=== PATIENT | male | born 1970 | race Caucasian/White ===

== ENCOUNTER 2024-09-07 23:50 | Inpatient (IN) | payer OTHER, SELFPAY ==
[2024-09-07 20:33] VITALS: BMI 68.1
[2024-09-07 20:50] VITALS: BP 126/64
[2024-09-07 20:51] VITALS: BP 126/64
--- NOTE | 2024-09-07 21:04 | ED.GENMED ---
History of Present Illness
General
Chief Complaint: Weakness
Source: patient and spouse
Time Seen by Provider: 09/07/24 20:54
History of Present Illness
History of Present Illness:
This a 53-year-old male with a history of atrial fibrillation, morbid obesity and recent pneumonia who presents with profound weakness he was just released from a rehab facility after being admitted to [facility] for pneumonia. He is oxygen dependent
at this point but states overall has been okay but has just been very weak. He got home and his could not get him out of the chair. He then slid to the ground and could not get up the stairs. EMS was called twice. Patient denies fevers. No
chest pain. He states he has been little short of breath but okay on the oxygen. states that she cannot deal with him at home and she cannot get him up.
Past History
Past History
ED Past Medical History: Arrthythmia (Atrial fibrillation with), HTN, Hypercholesterolemia and Other (Esophageal strictures, morbid obesity, obstructive sleep apnea, bipolar disorder)
ED Past Surgical History: Other (sinus surgery age 21, tumor removed)
Social History
Personal:
Living: with family
Phy Exam
Physical Exam
Physical Exam:
CONSTITUTIONAL Patient alert and oriented to person, place and time. Morbidly obese, vital signs reviewed.
HEAD atraumatic, normocephalic.
EYES eyelids normal to inspection, Extraocular muscles intact, Conjunctiva normal, Sclera normal.
NECK normal range of motion, Trachea midline, no jugular venous distention.
RESPIRATORY CHEST No respiratory distress noted, Chest expansion equal, diminished at bilateral bases, mildly tachypneic
CARDIOVASCULAR regular rate and rhythm, Heart sounds normal.
ABDOMEN abdomen nontender, Bowel sounds normal. No distention.
BACK normal inspection, no obvious deformities
UPPER EXTREMITY range of motion normal, no cyanosis, no edema.
LOWER EXTREMITY range of motion normal, no cyanosis, trace bilateral edema.
NEURO Speech normal, No focal motor deficits, Matthew coma scale 15, Memory normal, Cranial Nerves intact to screening exam.
SKIN skin warm, dry, and normal in color.
Course
Orders/Labs/Results
Orders:
Orders
09/07/24 20:33
Electrocardiogram (*1) Urgent
Reason for Study: Other
Other Reason for Exam: weakness
EKG- Treatment ONCE
09/07/24 20:58
CR Chest Portable - 1 View Urgent
Comment:
Reason For Exam: sob
Reason Study Needs to be Portable: Unable to Transport
09/07/24 21:02
Basic Metabolic Panel Urgent
Complete Blood Count/No Diff Urgent
09/07/24 21:38
NT-proBNP Urgent
PT/INR [Prothrombin Time] Urgent
Abnormal Lab Results
09/07/24
21:02
RBC 4.43 L 10^6/uL
(4.70-6.10)
Hgb 12.6 L g/dL
(13.0-18.0)
MCHC 31.2 L g/dL
(33.0-37.0)
RDW 18.0 H %
(11.5-14.5)
MPV 10.6 H fL
(7.4-10.4)
Chloride 94 L mmol/L
(98-107)
Carbon Dioxide 34 H mmol/L
(22-30)
BUN 25 H mg/dl
(9-20)
Glucose 121 H mg/dl
(70-99)
09/07/24 21:02
09/07/24 21:02
Vital Signs
Initial and Last Documented VS:
Initial Vital Signs
Pulse Resp
63 26
09/07/24 20:30 09/07/24 20:30
Last Documented Vital Signs
Temp Pulse Resp BP Pulse Ox
98.8 F 60 30 126/64 93
09/07/24 20:33 09/07/24 21:30 09/07/24 21:30 09/07/24 20:51 09/07/24 21:00
MDM/Problems Addressed
Differential Diagnosis Includes:
Failure to thrive, electrolyte imbalance, recurrent pneumonia, CHF, metabolic encephalopathy
MDM/Problems Addressed:
Morbid obesity, generalized weakness, failure to thrive, ambulatory dysfunction
*Radiology
Radiology exam reviewed: all reviewed NAD by ED Provider
*Pulse Oximetry
Patient hypoxic: no
*EKG
Interpreted by ED Provider?: Yes
Interpretation: abnormal
Rate: bradycardiac
Rhythm: sinus
Ischemia: non-specific ST changes
*Finisher Hand Interpretation
Rate: bradycardiac
Interpretation: abnormal
Rhythm: sinus
*Critical Care Note
Total Time (30-74mins, 75-104mins- exclusive of procedures): Not Applicable
Data Reviewed
Review of Other/Old Records Reveals: Discharge Summary (from 2015)
Source: patient and spouse
Prescriptions/Medications Considered But Not Given:
Consider antibiotics white count normal, no fever
Patient Management
Discussion with other providers: Hospitalist
Escalation/DeEscalation of care consider admission/obs:
53-year-old male with morbid obesity. Likely needs placement to rehab facility as the patient tried home management but was unable to get up. Unable to get up the stairs. got the care of him. Does not appear to have any other acute findings
ED Attending Note
-
Portions of this chart may have been created with voice recognition software.� Occasional wrong word or��sound alike� substitutions may have occurred due to the inherent limitations of voice recognition software.
Discharge Plan
Departure
Patient Disposition: Admit
Date of Disposition: 09/07/24
Time of Disposition: 22:16
Admit to: Med/Surg
Presentation/result/management discussed w/ accepting MD/DO: Hospitalist
Discharge Problem:
Morbid obesity, Adult failure to thrive, Ambulatory dysfunction
Prescriptions:
No Action
aspirin 81 MG tablet,delayed release (DR/EC)
81 mg PO DAILY
bupropion HCl 150 MG tablet sustained-release 12 hr
150 mg PO BID
atorvastatin 20 MG tablet
20 mg PO QPM
mirtazapine [Remeron SolTab] 30 MG tablet,disintegrating
30 mg PO HS
clonazepam 1 MG tablet
1 mg PO TID
omeprazole 40 MG capsule,delayed release(DR/EC)
40 mg PO BID
diltiazem HCl 30 MG tablet
30 mg PO PRN PRN (Reason: presurgery)
risperidone 0.5 MG tablet
0.5 mg PO HS
dextroamphetamine-amphetamine 10 MG tablet
10 mg PO BID
Patient Comments:
Patient takes medication BID at 0800 and 1300.
guaifenesin [Mucus Relief ER] 600 MG tablet extended release 12hr
600 mg PO Q12 0RF
cefuroxime axetil 500 MG tablet
500 mg PO BID Qty: 10 0RF
azithromycin [Zithromax] 500 MG tablet
500 mg PO DAILY Qty: 5 0RF
Referrals:
Sumi Bautista PA-C [Family Provider] -
Interventions
Interventions:
*Risk Screen - Suicide Last Done: 09/07/24 20:33
*General Assessment Last Done: 09/07/24 20:33
*Neglect/Abuse Screening Last Done: 09/07/24 20:33
*ED COVID-19 Vaccine History Last Done: 09/07/24 20:33
Discharge Date and Time
Print Language: SYRIAC
[2024-09-07 21:20] LABS: Hematocrit 40.4 % (39.0-52.0); Hemoglobin 12.6 g/dL (13.0-18.0); Mean Corp Hgb Conc. 31.2 g/dL (33.0-37.0); Mean Corpuscular Hgb 28.4 pg (27.0-31.0); Mean Corpuscular Volume 91.2 fL (80.0-94.0); Mean Platelet Volume 10.6 fL (7.4-10.4); Platelet Count 237 10^3/uL (130-400); Red Blood Cell Count 4.43 10^6/uL (4.70-6.10); White Blood Cell Count 6.1 10^3/uL (4.8-10.8)
[2024-09-07 21:43] LABS: Blood Urea Nitrogen 25 mg/dl (9-20); Calcium 8.7 mg/dl (8.4-10.2); Carbon Dioxide 34 mmol/L (22-30); Chloride 94 mmol/L (98-107); Estimated Creatinine Clearance > 125 ml/min; Glucose 121 mg/dl (70-99); Sodium 138 mmol/L (135-145); eGFR > 60.00
[2024-09-07 22:11] LABS: INR 1.36
--- NOTE | 2024-09-07 23:15 | HPS.HSE ---
Family Physician
-
Family Physician: Sumi Bautista, PAC
Chief Complaint
-
Weakness
History of Present Illness
53-year-old man with a history of atrial fibrillation, morbid obesity and recent pneumonia comes in with profound weakness. He was just released from a rehab facility after being admitted for pneumonia. He is oxygen dependent now and has been very
weak. At home his could not get him out of the chair. He slid to the ground and could not get up the stairs. Patient denies fevers, chest pain. He has been short of breath but feels better on oxygen. states that she cannot deal with
him at home and she cannot get him up. At the time of my exam he was able to answer my questions. His BMI is 68.
Medical History
Past Medical History
Past Medical History: Reports Other
Additional Past Medical History:
Atrial fibrillation
HTN
Hypercholesterolemia
Esophageal strictures
morbid obesity - BMI 68
obstructive sleep apnea
bipolar disorder
sinus surgery age 21,
tumor removed
Chronic leg swelling
Toe wounds
Past Surgical History: Reports Other
Additional Past Surgical History:
See above
Social History
Tobacco: Non-smoker
Alcohol: None
Drug: None
Personal:
Living: With Family
Family History
Family History: Not pertinent
Allergies / Home Medications
Allergies reflects when Allergies were last updated in [facility].
Home Medications with original date entered in [facility]
Allergy/Medication List:
Allergies
Allergy/AdvReac Type Severity Reaction Status Date / Time
No Known Allergies Allergy Verified 09/07/24 20:46
Home Medications
bupropion HCl 150 mg tablet,12 hr sustained-release 150 mg PO BID 07/27/16
clonazepam 1 mg tablet 1 mg PO TID PRN anxiety 07/27/16
omeprazole 40 mg capsule,delayed release 40 mg PO BID 07/27/16
risperidone 0.5 mg tablet 0.5 mg PO HS 07/27/16
amiodarone 200 mg tablet 200 mg PO DAILY 09/07/24
apixaban 5 mg tablet (Eliquis) 5 mg PO BID 09/07/24
carvedilol 25 mg tablet 25 mg PO BID 09/07/24
furosemide 40 mg tablet 40 mg PO DAILY 09/07/24
pravastatin 40 mg tablet 40 mg PO HS 09/07/24
Review of Systems
-
History Source: Patient
A 12 point ROS was completed and negative except as noted: Yes
Physical Exam
Vital Signs
Vital Signs
Temp Pulse Resp BP Pulse Ox
98.8 F 60 30 126/64 93
09/07/24 20:33 09/07/24 21:30 09/07/24 21:30 09/07/24 20:51 09/07/24 21:00
Physical Exam
General: Well Developed, Well Nourished, Respiratory Distress, Appears in Distress, Appears Chronically Ill and Morbidly Obese
HEENT: Nose Appears Normal and Ears Appear Normal
Respiratory: Clear and Decreased Breath Sounds
Cardiac: S1/S2 and Regular Rhythm
GI: Soft, Non Tender and Non Distended
Musculoskeletal: No Clubbing, No Cyanosis, Edema, Left Lower Extremity and Edema, Right Lower Extremity
Skin: Warm and Dry
Neuro: Awake, Alert, Oriented and AO x 3
Psych: Calm
Laboratory Results
-
09/07/24 21:02
09/07/24 21:02
Laboratory Results
PT 17.0 Sec (11.4-14.6) H 09/07/24 21:38
INR 1.36 09/07/24 21:38
Total Bilirubin Cancelled 09/07/24 21:02
AST Cancelled 09/07/24 21:02
ALT Cancelled 09/07/24 21:02
Alkaline Phosphatase Cancelled 09/07/24 21:02
Data Reviewed
-
Lab Data: Labs Reviewed by me
Impression/Plan
-
IMPRESSION:
53 man with BMI of 54, could not get up from the floor and has profound weakness and a changed EKG
PLAN:
1. Weakness with changes in EKG, h/o afib
Telemetry
CRIS
INR daily
2. Probable obesity hypoventilation syndrome - may need pressure support
Pulmonary consult
3. Elevated glucose on labs - may have diabetes
Check A1C
4. BUN/Creat > 20 - may be dehydrated
IV fluids
recheck in am
5. Increased leg swelling - may have worsening heart failure
Check echo
6. Chronic toe wounds
Nursing care and help with hygiene as needed
7. Failure to get up from floor
PT consult
8. Morbid obesity - needs better outpatient plan
Referral for GLP-1 or bariatric surgery
Full code
VCD for DVTp
[2024-09-08] VITALS (12 sets, daily range): BP systolic 118–180; BP diastolic 62–103; PULSE 62; O2SAT 95; BMI 69.7
[2024-09-08] MEDS: NSS 1000 IV ×2 (02:39→13:42)
[2024-09-08 04:44] LABS: Hematocrit 36.2 % (39.0-52.0); Hemoglobin 11.5 g/dL (13.0-18.0); Mean Corp Hgb Conc. 31.8 g/dL (33.0-37.0); Mean Corpuscular Hgb 28.6 pg (27.0-31.0); Mean Platelet Volume 10.2 fL (7.4-10.4); Platelet Count 198 10^3/uL (130-400); Red Blood Cell Count 4.02 10^6/uL (4.70-6.10); Red Cell Dist. Width 17.9 % (11.5-14.5); White Blood Cell Count 4.9 10^3/uL (4.8-10.8)
[2024-09-08 04:56] LABS: B.E. 11.3 mmol/L; HCO3 38.4 mmol/L (21-28); O2 Saturation % 97.1 % (94-98); PCO2 62 mmHg (35-48); PO2 90 mmHg (83-108)
[2024-09-08 04:58] LABS: Blood Urea Nitrogen 23 mg/dl (9-20); Calcium 8.3 mg/dl (8.4-10.2); Carbon Dioxide 37 mmol/L (22-30); Chloride 94 mmol/L (98-107); Estimated Creatinine Clearance > 125 ml/min; Glucose 123 mg/dl (70-99); HDL Cholesterol 41 mg/dl; LDL Cholesterol, Calculated 95 mg/dl; Potassium 3.2 mmol/L (3.5-5.1); Sodium 141 mmol/L (135-145); Total Cholesterol 164 mg/dl (50-199); Triglyceride 140 mg/dl (10-149); Very Low Density Lipoprotein 28 mg/dl (0-30); eGFR > 60.00
[2024-09-08 05:08] LABS: Troponin I < 0.012 ng/ml
[2024-09-08 07:06] LABS: O2 Therapy on 2L NC
[2024-09-08] MEDS: LASIX 40 MG PO (07:49)
[2024-09-08] MEDS: PACERONE 200 MG PO (07:49)
[2024-09-08] MEDS: COREG 25 MG PO ×2 (07:49→20:07)
[2024-09-08] MEDS: PROTONIX 40 MG PO ×2 (07:49→20:08)
[2024-09-08] MEDS: ELIQUIS 5 MG PO ×2 (07:49→20:08)
[2024-09-08] MEDS: WELLBUTRIN SR (12 hour sustained release) 150 MG PO (07:49)
[2024-09-08 07:59] LABS: Troponin I < 0.012 ng/ml
[2024-09-08] MEDS: KLONOPIN 1 MG PO ×2 (09:12→20:08)
[2024-09-08] MEDS: KCL 40 MEQ PO ×2 (09:12→18:15)
--- NOTE | 2024-09-08 09:54 | CM ---
Patient seen at bedside.
IA: weakness, abnormal ecg
PMH: afib, Obesity
States was recently hospitalized at [facility] then rehab at [facility]. States he then went home for a day and slid to the ground attempting to get off chair.
Patient states does not wish to return to [facility]. Other options discussed
Lives in a 2 story home with , 2 steps to enter, flight of steps to 2nd floor
PLOF: states walker, wheelchair at [facility]
DME: Oxygen, walker
PT eval
Would need to obtain ins auth for SNF
PCP: Sumi Bautista
Pharmacy: [facility]
PLAN: PT eval
[2024-09-08 10:46] LABS: Glycohemoglobin (HgbA1c) 6.7 % (4.0-5.6)
[2024-09-08 10:56] LABS: Troponin I < 0.012 ng/ml
[2024-09-08 11:39] LABS: Glucose - Point of Care 131 mg/dl (70-99)
--- NOTE | 2024-09-08 12:22 | CON.PUL ---
Consultation
Consultation Request
Date/Time Consultation Requested: 09/08/24
Date/Time Consultation Performed: 09/08/24
Performing Provider: Madi
Reason for Consultation: JENNI
Medical History
-
History of Present Illness:
Patient is a 53-year-old male with previous history of atrial fibrillation, super morbid obesity, pneumonia presenting to ER with profound weakness. Had just completed outpatient rehab following admission for pneumonia, oxygen dependent. Chest
x-ray obtained indicating no clear evidence of infection. ABG obtained indicating chronic CO2 retention but well compensated.
He has a history of JENNI, diagnosed some years ago at [facility]. He notes he has been somewhat compliant with PAP, but he does not recall his settings.
Has not been back to see his provider since.
Never told he has other lung disease.
Past Medical History
Past Medical History: Other (see list below)
Social History
Tobacco: Non-smoker
Alcohol: None
Drug: None
Family History
Family History: Reviewed & Not Pertinent
Allergies / Home Medications
Allergies
Allergy/AdvReac Type Severity Reaction Status Date / Time
No Known Allergies Allergy Verified 09/07/24 20:46
Home Medications
�Medication �Instructions �Recorded �Confirmed �Last Taken �Type
bupropion HCl 150 mg tablet,12 hr 150 mg PO BID Mental Health/Anxiety 07/27/16 09/07/24 09/07/24 History
sustained-release
clonazepam 1 mg tablet 1 mg PO TID PRN anxiety 07/27/16 09/07/24 09/07/24 History
omeprazole 40 mg capsule,delayed 40 mg PO BID Gastrointestinal Issue 07/27/16 09/07/24 07/27/16 History
release
risperidone 0.5 mg tablet 0.5 mg PO HS Mental Health/Anxiety 07/27/16 09/07/24 07/27/16 History
amiodarone 200 mg tablet 200 mg PO DAILY Arrhythmia 09/07/24 09/07/24 09/07/24 History
apixaban 5 mg tablet (Eliquis) 5 mg PO BID Blood Clot 09/07/24 09/07/24 09/07/24 History
Prevention/Tx
carvedilol 25 mg tablet 25 mg PO BID Heart 09/07/24 09/07/24 09/07/24 History
Disease/Condition
furosemide 40 mg tablet 40 mg PO DAILY Fluid 09/07/24 09/07/24 Unknown History
Retention/Swelling
pravastatin 40 mg tablet 40 mg PO HS High Cholesterol 09/07/24 09/07/24 Unknown History
Review of Systems
-
History Source: Patient
All other systems: Negative unless noted
Vitals / Labs / Diagnostic Testing
Vital Signs
Temp Pulse Resp BP Pulse Ox
98.0 F 62 20 136/67 94
09/08/24 08:00 09/08/24 08:00 09/08/24 08:00 09/08/24 08:00 09/08/24 08:00
Lab Data
09/08/24 04:05
09/08/24 04:05
Laboratory Results
09/07/24 09/08/24
21:38 04:24
PT 17.0 H
INR 1.36
pH 7.40
pCO2 62 H
pO2 90
HCO3 38.4 H
O2 Delivery Level on 2l nc
Diagnostic Testing:
Physical Exam
-
HEENT: Normocephalic, Anicteric and Moist Mucous Membranes
Cardiovascular: S1/S2 and Regular Rhythm
Respiratory: Clear and Non-Labored Respirations
GI: Soft, Non Distended and Non Tender
Neurology: Awake, Alert, Oriented and No Motor Deficits
Skin: Warm, Dry and Good Color
General: Comfortable and Other (NAD, morbidly obese)
Assessment
-
Patient is a 53-year-old male with previous history of atrial fibrillation, super morbid obesity, pneumonia presenting to [facility] ER with profound weakness. Had just completed outpatient rehab following admission for pneumonia, oxygen dependent. Chest
x-ray obtained indicating no clear evidence of infection. ABG obtained indicating chronic CO2 retention but well compensated.
He has a history of JENNI, diagnosed some years ago at [facility]. He notes he has been somewhat compliant with PAP, but he does not recall his settings. We are consulted for eval.
Generalized weakness
Super morbid obesity
Chronic hypercarbia, suspect JENNI/OHS
Chronic pulmonary insufficiency due to morbid obesity
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
Respiratory failure secondary to aspiration and pleural effusion, adm 2013
Intentional suicide overdose with acids and alkaline material.
Atrial fibrillation
HTN
Hypercholesterolemia
Esophageal strictures
morbid obesity - BMI >60
obstructive sleep apnea
bipolar disorder
Sinus surgery age 21
tumor removed
Chronic leg swelling
Toe wounds
Plan
Hypoxemia noted on arrival, placed on supplemental O2
Has O2 at home, this is due to atelectasis and morbid obesity
Never told he has other lung disease.
Has JENNI history, diagnosed at [facility] many years ago
Has not been back to see his provider since.
Reports that he uses CPAP, but I suspect noncompliance given CO2 retention
Suspect patient has OHS as well
Would need outpatient titration study to evaluate for this and increased PAP settings if warranted
He has appointment with sleep provider at [facility] coming up
We have discussed utilizing his home CPAP device while inpatient, instructed his to bring it in
CXR/CT obtained indicating no acute findings
Other imaging reviewed
No prior echo for review
Weight loss measures recommended
Obesity likely contributing to respiratory symptoms
Consider referral to bariatric center
Will need outpatient pulmonary evaluation in our office for PFTs and 6MWT
Risk factors assessed for underlying sleep disordered breathing also noted, recommend outpatient PSG/sleep evaluation
Reviewed with patient
We will follow
Diagnostic Data
Chest X-Ray: 09/07/24- Technical limitations including lordotic projection and patient rotation to the left. The heart appears enlarged, though may be accentuated by technical factors. No definite significant vascular congestion. Mild localized
interstitial prominence in the medial right lung base, small infiltrate versus atelectasis. No pneumothorax identified.
CT Scan:
Echo:
PFT's:
Reports and relevant images were personally reviewed.
Total time spent on this consultation __55__ minutes which includes review of history, physical exam, medications, laboratory data, personal review of imaging, extensive review of outpatient records, discussion with care team and respiratory therapy.
--- NOTE | 2024-09-08 13:34 | W.PN.HOSP.TC ---
Addendum entered and electronically signed by Mark Diaz, 09/08/24 17:47:
Holding risperidone as well for now
Addendum entered and electronically signed by Mark Diaz, DO 09/08/24 17:44:
QTc prolonged on EKG to 532 ms. Holding bupropion for now, will check mag level and replete for goal >2. Another 40 mEq KCl given
Original Note:
Today's Communication/Plan
-
Pulmonology for OHS
Wean oxygen as possible
Replete potassium
PT/OT
Assessment / Plan
Assessment / Plan
#Weakness with changes in EKG
#H/O AF
-Troponin negative over multiple draws, low suspicion for ACS
-Did not have any symptoms of chest pain here
-Remains on home amiodarone, carvedilol, Eliquis
-Continue to monitor on telemetry
#Suspected OHS/JENNI
-Patient states he has required oxygen use recently at rehab and in hospital
-Due to his morbid obesity/habitus, OHS is very likely
-Pulmonology consulted on admission for consideration of pressure support
-Will need formal PFTs and sleep study as outpatient
-Continue low-level oxygen, monitor clinically
#Morbid obesity
-BMI here 69.7 per today's vital signs
-Affects all aspects of care, contributing to OHS/JENNI and ambulatory issues
-Should be started on GLP-1 agonist or have consideration for bariatric procedure at discharge
# Hypokalemia
-Potassium 3.4 this morning, 40 mEq KCl provided
-Continue to monitor and replete as needed
#Dehydration
-Was found on floor unable to get up, BUN/Cr > 20 on arrival
-Maintenance IVF for now
#Chronic leg swelling/lymphedema
-Low suspicion for CHF
-Could consider echo if oxygen requirements worsen
#Chronic toe wounds
-Nursing care, hygiene assistance
#Ambulatory dysfunction/failure to thrive
-Secondary to severe obesity
-PT/OT consult, anticipate
DVT prophylaxis: Home Eliquis
Diet: Cholesterol-lowering
CODE STATUS: Full code
Anticipated Discharge: 24 - 48 hours
Subjective/Interval History
-
Date of Service: September 08, 2024
Seen and examined at the bedside. No acute events reported overnight. AFVSS this morning on 2 L oxygen
States that he has been using oxygen often recently, both at SNF and during hospital stays
He denies any acute symptoms including chest pain, worsening dyspnea, wheezing, fevers or chills, GI or urinary issues, bleeding or bruising, paresthesias or weakness
Objective Data
-
Labs:
Laboratory Results
09/08/24 09/08/24
04:05 04:24
WBC 4.9
Hgb 11.5 L
Hct 36.2 L
Plt Count 198
HCO3 38.4 H
Sodium 141
Potassium 3.2 L
Chloride 94 L
Carbon Dioxide 37 H
BUN 23 H
Creatinine 1.0
Glucose 123 H
Calcium 8.3 L
Vital Signs:
Vital Signs
Temp Pulse Resp BP Pulse Ox
97.9 F 67 20 149/89 95
09/08/24 12:00 09/08/24 12:00 09/08/24 12:00 09/08/24 12:00 09/08/24 12:00
I&O
09/07/24 09/08/24 09/09/24
06:59 06:59 06:59
Intake Total 350 / 350
Output Total 750 / 750
Balance -400 / -400
Review of Systems
-
History Source: Patient
All other systems: Reviewed and negative
Physical Exam
-
General: Well Developed, No Apparent Distress, Comfortable and Morbidly Obese
HEENT: Normocephalic, Atraumatic, Moist Mucous Membranes, Anicteric and Other (Enlarged neck circumference)
Respiratory: Non Labored Respirations and Decreased Breath Sounds; Negative Wheezes, Rales or Rhonchi
Cardiac: Regular Rhythm and S1/S2; Negative Murmur, Rub or Gallop
GI: Soft, Nontender, Nondistended and Normal Bowel Sounds
Musculoskeletal: No Clubbing, No Cyanosis and No Edema
Skin: Warm, Dry and Normal Turgor; Negative Rash
Neuro: AO x 3 and Nonfocal/Grossly Intact
Psych: Calm
Data Reviewed
-
Labs: Labs Reviewed by me and Discussed with Patient
[2024-09-08 16:11] LABS: Glucose - Point of Care 115 mg/dl (70-99)
[2024-09-08 17:59] LABS: Magnesium 1.7 mg/dl (1.6-2.3)
[2024-09-08] MEDS: MAGNESIUM SULFATE 50 IV (20:07)
[2024-09-08] MEDS: PRAVACHOL 40 MG PO (21:27)
[2024-09-08 21:51] LABS: Glucose - Point of Care 165 mg/dl (70-99)
[2024-09-09] MEDS: NSS 1000 IV (01:31)
[2024-09-09 03:15] VITALS: BP 154/74
[2024-09-09 06:00] VITALS: BMI 70.8
[2024-09-09 07:00] VITALS: BP 137/69
[2024-09-09] MEDS: ELIQUIS 5 MG PO ×2 (08:00→20:40)
[2024-09-09] MEDS: PROTONIX 40 MG PO ×2 (08:00→20:40)
[2024-09-09] MEDS: LASIX 40 MG PO (08:00)
[2024-09-09] MEDS: COREG 25 MG PO ×2 (08:00→20:40)
[2024-09-09] MEDS: PACERONE 200 MG PO (08:00)
[2024-09-09 08:32] LABS: Glucose - Point of Care 131 mg/dl (70-99)
[2024-09-09 09:10] LABS: % Basophils 0.7 % (0-2); % Eosinophils 1.5 % (0-6); % Immature Granulocytes 0.5 % (0-0.5); % Lymphocytes 17.2 % (20.5-51.1); % Monocytes 11.6 % (1.7-9.3); % Neutrophils 68.5 % (42.2-75.2); Absolute Eosinophils 0.1 10^3/uL (0-0.7); Absolute Lymphocytes 0.7 10^3/uL (1.2-3.4); Absolute Monocytes 0.5 10^3/uL (0.1-0.6); Absolute Neutrophils 2.8 10^3/uL (1.4-6.5); Hematocrit 36.7 % (39.0-52.0); Hemoglobin 11.3 g/dL (13.0-18.0); Mean Corp Hgb Conc. 30.8 g/dL (33.0-37.0); Mean Corpuscular Hgb 28.8 pg (27.0-31.0); Mean Corpuscular Volume 93.6 fL (80.0-94.0); Mean Platelet Volume 10.6 fL (7.4-10.4); Nucleated Red Blood Cells % 0 % (-); Platelet Count 177 10^3/uL (130-400); Red Blood Cell Count 3.92 10^6/uL (4.70-6.10); Red Cell Dist. Width 18.1 % (11.5-14.5); White Blood Cell Count 4.1 10^3/uL (4.8-10.8)
[2024-09-09 09:35] LABS: Blood Urea Nitrogen 15 mg/dl (9-20); Calcium 7.9 mg/dl (8.4-10.2); Chloride 96 mmol/L (98-107); Estimated Creatinine Clearance > 125 ml/min; Glucose 128 mg/dl (70-99); Magnesium 2.2 mg/dl (1.6-2.3); Potassium 3.9 mmol/L (3.5-5.1); Sodium 141 mmol/L (135-145); eGFR > 60.00
[2024-09-09 09:45] LABS: Carbon Dioxide 37 mmol/L (22-30)
--- NOTE | 2024-09-09 10:00 | W.PN.PUL.V3 ---
Today's Communication / Plan
-
CPAP/BiPAP at night- bring in machine.
Outpatient sleep evaluation
Await placement to SNF
Assessment
-
Patient is a 53-year-old male with previous history of atrial fibrillation, super morbid obesity, pneumonia presenting to ER with profound weakness. Had just completed outpatient rehab following admission for pneumonia, oxygen dependent. Chest
x-ray obtained indicating no clear evidence of infection. ABG obtained indicating chronic CO2 retention but well compensated.
He has a history of JENNI, diagnosed some years ago at [facility]. He notes he has been somewhat compliant with PAP, but he does not recall his settings. We are consulted for eval.
Generalized weakness
Super morbid obesity
Chronic hypercarbia, suspect JENNI/OHS
Chronic pulmonary insufficiency due to morbid obesity
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
Respiratory failure secondary to aspiration and pleural effusion, adm 2013
Intentional suicide overdose with acids and alkaline material.
Atrial fibrillation
HTN
Hypercholesterolemia
Esophageal strictures.
Super morbid obesity - BMI > 70
obstructive sleep apnea
bipolar disorder
Sinus surgery age 21
tumor removed
Chronic leg swelling
Toe wounds
Plan
Respiratory status relatively stable.
Supplemental oxygen as needed.
Aspiration precautions.
Incentive spirometry.
Nebulizers if needed-currently not bronchospastic.
BiPAP/ CPAP at night-states is bringing his machine in
Has not followed up with his framer at [facility] for many years-states he's had BiPAP for about 6 years-likely due for a new machine.
Would need outpatient titration study to evaluate for this and increased PAP settings if warranted
He has appointment with sleep provider at [facility] coming up
Weight loss measures recommended
Obesity likely contributing to respiratory symptoms
Consider referral to bariatric center..
Echocardiogram pending
Overweight placement to subacute nursing facility
Will need outpatient pulmonary evaluation in our office for PFTs and 6MWT
Risk factors assessed for underlying sleep disordered breathing also noted, recommend outpatient PSG/sleep evaluation-gave option to follow up locally-lives in [place]
Diagnostic Data
Chest X-Ray: 09/07/24- Technical limitations including lordotic projection and patient rotation to the left. The heart appears enlarged, though may be accentuated by technical factors. No definite significant vascular congestion. Mild localized
interstitial prominence in the medial right lung base, small infiltrate versus atelectasis. No pneumothorax identified.
Reports and relevant images were personally reviewed.
Subjective Data
-
Date of Service:
Date of Service: September 09, 2024
Chief Complaint: Pulmonary Follow Up and Dyspnea Follow Up
Subjective:
Tolerating BiPAP, no complaints of worsening shortness of breath, chest pain or abdominal pain
Review of Systems
General: Other ( per HPI)
Objective Data
Data Reviewed
Vital Signs / I&O:
Vital Signs
Temp Pulse Resp BP Pulse Ox
98.1 F 63 22 137/69 93
09/09/24 07:00 09/09/24 07:00 09/09/24 07:00 09/09/24 07:00 09/09/24 07:00
Intake and Output
09/08/24 09/09/24 09/10/24
06:59 06:59 06:59
Intake Total 350 / 350 2420 / 2420
Output Total 750 / 750 1400 / 1400
Balance -400 / -400 1020 / 1020
SaO2: 93
Nasal Cannula flow liters per minute: 2
Physical Exam
General: Respiratory Distress (n) and Comfortable
HEENT: Normocephalic, Anicteric and Moist Mucous Membranes
Cardiovascular: Regular Rhythm
Respiratory: Wheeze (n), Crackles (n), Non-Labored Respirations, Accessory Resp Muscle Use (n) and Stridor (n)
GI: Soft and Distended
Neurology: Awake and Alert
Skin: Warm, Good Color, Cyanosis (n) and Jaundice (n)
Labs/Micro/Reports
Lab Data
09/09/24 08:31
09/09/24 08:31
[2024-09-09] MEDS: NSS IV (10:37)
[2024-09-09 11:00] VITALS: BP 147/75
--- NOTE | 2024-09-09 11:58 | CM ---
CM reviewed chart, patient seen bedside. CM discussed PT recommendations of SNF, patient confirms he was previously at [facility], returned home briefly, was going to start services with [facility], however was admitted to Hospital. CM spoke with
patients , Andreia, Andreia reports she will be writing a letter to the state with her concerns of the care from [facility]. Andreia requesting [facility] for patient. CM discussed patient will require an Acute rehab diagnosis in order to be
accepted to [facility], therapy recommendations remain SNF. agreeable to referrals to be sent to local facilities, 4 star and above. Patient will require insurance auth once facility found. CM will continue to follow for all discharge planning needs.
Plan; SNF once facility accepts, will need insurance auth.
--- NOTE | 2024-09-09 12:10 | W.PN.HOSP.TC ---
Today's Communication/Plan
-
await placement to SNF
Check ECHO
Qtc monitoring-Repeat EKG
Assessment / Plan
Assessment / Plan
#Weakness with changes in EKG
#H/O AF
-Troponin negative over multiple draws, low suspicion for ACS
-Did not have any symptoms of chest pain here
-Remains on home amiodarone, carvedilol, Eliquis
-Continue to monitor on telemetry. Check ECHO.
#Suspected OHS/JENNI
-Patient states he has required oxygen use recently at rehab and in hospital
-Due to his morbid obesity/habitus, OHS is very likely
-Pulmonology consulted on admission for consideration of pressure support
-Will need formal PFTs and sleep study as outpatient
-Continue low-level oxygen, monitor clinically
#Prolonged Qtc
-bupropioon and rispderidal held.
-repeat EKG
#DM2
-A1C of 6.7
-ADA. Iss and accuchecks. Lifestyle modification vs. metformin.
#Morbid obesity
-BMI here 70.8 per today's vital signs
-Affects all aspects of care, contributing to OHS/JENNI and ambulatory issues
-Should be started on GLP-1 agonist or have consideration for bariatric procedure at discharge
# Hypokalemia
-Continue to monitor and replete as needed
#Dehydration
-Was found on floor unable to get up, BUN/Cr > 20 on arrival
-Maintenance IVF for now-stop IVF
#Chronic leg swelling/lymphedema
-Low suspicion for CHF
-Could consider echo if oxygen requirements worsen
#Chronic toe wounds
-Nursing care, hygiene assistance
#Ambulatory dysfunction/failure to thrive
-Secondary to severe obesity
-PT/OT-SNF. Cm aware.
DVT prophylaxis: Home Eliquis
Diet: Cholesterol-lowering
CODE STATUS: Full code
Anticipated Discharge: Today
Subjective/Interval History
-
Date of Service: September 09, 2024
resting in bed
on oxygen
Objective Data
-
Labs:
Laboratory Results
09/09/24
08:31
WBC 4.1 L
Hgb 11.3 L
Hct 36.7 L
Plt Count 177
Sodium 141
Potassium 3.9
Chloride 96 L
Carbon Dioxide 37 H
BUN 15
Creatinine 0.8
Glucose 128 H
Calcium 7.9 L
Vital Signs:
Vital Signs
Temp Pulse Resp BP Pulse Ox
98.1 F 63 22 137/69 93
09/09/24 07:00 09/09/24 07:00 09/09/24 07:00 09/09/24 07:00 09/09/24 10:00
I&O
09/08/24 09/09/24 09/10/24
06:59 06:59 06:59
Intake Total 350 / 350 2420 / 2420
Output Total 750 / 750 1400 / 1400
Balance -400 / -400 1020 / 1020
Physical Exam
-
General: Well Developed, No Apparent Distress, Comfortable and Morbidly Obese
HEENT: Normocephalic, Atraumatic, Moist Mucous Membranes, Anicteric and Other (Enlarged neck circumference)
Respiratory: Non Labored Respirations and Decreased Breath Sounds (likely due to body habitus-); Negative Wheezes, Rales or Rhonchi
Cardiac: Regular Rhythm and S1/S2; Negative Murmur, Rub or Gallop
GI: Soft, Nontender, Nondistended and Normal Bowel Sounds
Musculoskeletal: No Clubbing and No Cyanosis
Skin: Warm, Dry and Normal Turgor; Negative Rash
Neuro: Awake, Alert, Oriented, AO x 3 and Nonfocal/Grossly Intact
Psych: Calm
Data Reviewed
-
Total Time Spent with Patient (in minutes): 52
[2024-09-09 12:17] LABS: Glucose - Point of Care 116 mg/dl (70-99)
[2024-09-09] MEDS: KLONOPIN 1 MG PO ×2 (14:02→21:42)
[2024-09-09 15:00] VITALS: BP 141/78
[2024-09-09 17:37] LABS: Glucose - Point of Care 108 mg/dl (70-99)
[2024-09-09 19:00] VITALS: BP 128/71
[2024-09-09 21:33] LABS: Glucose - Point of Care 119 mg/dl (70-99)
[2024-09-09] MEDS: PRAVACHOL 40 MG PO (21:42)
[2024-09-09 23:00] VITALS: BP 126/64
[2024-09-10 03:00] VITALS: BP 123/60
[2024-09-10 06:00] VITALS: BMI 70.5
[2024-09-10 07:00] VITALS: BP 155/79
[2024-09-10 08:40] LABS: Glucose - Point of Care 115 mg/dl (70-99)
--- NOTE | 2024-09-10 09:19 | PN.CDI ---
CDI
- -
CDI:
Physician Documentation Request
Admit Date: 09/07/24 23:50
Dear Doctor Ranjan,
Please review the following and provide your response in the progress notes.
Clinical Indicators:
Pt admitted with weakness, suspected OHS/JENNI.
Pt past medical history includes Atrial fibrillation; pt on Eliquis
If possible, please provide further specificity regarding atrial fibrillation, such as:
Paroxysmal atrial fibrillation - terminates spontaneously or with intervention within 7 days of onset
Persistent atrial fibrillation - episodes of continuous AF that last more than 7 days and do not self-terminate
Permanent atrial fibrillation - when a decision has been made to accept the presence of AF and there is no further attempt to restore or maintain sinus rhythm
Other - please specify
Unable to further specify
Use of terms such as suspected, likely, concern for, or probable (associated with a specific diagnosis that is being evaluated, monitored, or treated as if it exists) are acceptable and can be coded in the inpatient setting, when documented at the
time of discharge.
Thank you,
Lizett Sharma RN, BSN
CDI Specialist
Available via [place] [employer]
Please use your independent medical judgment in providing your response.
--- NOTE | 2024-09-10 09:23 | PN.CDI ---
CDI
- -
CDI:
Physician Documentation Request
Admit Date: 09/07/24 23:50
Dear Doctor Ranjan,
Please review the following and provide your response in the progress notes.
Clinical Indicators:
Pt admitted with Weakness and suspected OHS/JENNI.
09/08 family assessment worker noted stage 2 right posterior ear pressure injury.
Physician documentation of the type and location of wounds is required for compliant documentation. Based on the above clinical findings and your assessment, please provide the following in your progress note:
1. Location of the ulcer/wound, including laterality.
2. Type (etiology) of ulcer/wound:
Right ear pressure injury POA
Right ear pressure injury not POA
Right ear non-pressure injury
Other
Use of terms such as suspected, likely, concern for, or probable (associated with a specific diagnosis that is being evaluated, monitored, or treated as if it exists) are acceptable and can be coded in the inpatient setting, when documented at the
time of discharge.
Thank you,
Lizett Sharma RN, BSN
CDI Specialist
Available via [place] [employer]
Please use your independent medical judgment in providing your response.
*Source: National Pressure Ulcer Advisory Panel (NPUAP)
[2024-09-10] MEDS: PROTONIX 40 MG PO ×2 (09:26→20:15)
[2024-09-10] MEDS: COREG 25 MG PO ×2 (09:26→20:15)
[2024-09-10] MEDS: ELIQUIS 5 MG PO ×2 (09:26→20:15)
[2024-09-10] MEDS: PACERONE 200 MG PO (09:26)
[2024-09-10] MEDS: LASIX 40 MG PO (09:26)
--- NOTE | 2024-09-10 10:15 | W.PN.PUL.V3 ---
Today's Communication / Plan
-
Wean oxygen.
CPAP/BiPAP at night.
Outpatient pulmonary/sleep disorders follow-up
Assessment
-
Patient is a 53-year-old male with previous history of atrial fibrillation, super morbid obesity, pneumonia presenting to ER with profound weakness. Had just completed outpatient rehab following admission for pneumonia, oxygen dependent. Chest
x-ray obtained indicating no clear evidence of infection. ABG obtained indicating chronic CO2 retention but well compensated.
He has a history of JENNI, diagnosed some years ago at [facility]. He notes he has been somewhat compliant with PAP, but he does not recall his settings. We are consulted for eval.
Generalized weakness
Super morbid obesity
Chronic hypercarbia, suspect JENNI/OHS
Chronic pulmonary insufficiency due to morbid obesity
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
Respiratory failure secondary to aspiration and pleural effusion, adm 2013
Intentional suicide overdose with acids and alkaline material.
Atrial fibrillation
HTN
Hypercholesterolemia
Esophageal strictures.
Super morbid obesity - BMI > 70
obstructive sleep apnea
bipolar disorder
Sinus surgery age 21
tumor removed
Chronic leg swelling
Toe wounds
Plan
Respiratory status relatively stable.
Supplemental oxygen as needed-on 2 L 95% saturation
Aspiration precautions.
Incentive spirometry.
Nebulizers if needed-currently not bronchospastic.
CPAP/BiPAP at night- brought in machine-needs supplemental oxygen at night
Has not followed up with his parent aide at [facility] for many years-states he's had CPAP/BiPAP for about 6 years-likely due for a new machine.
Would need outpatient titration study to evaluate for this and increased PAP settings if warranted
He has appointment with sleep provider at [facility] coming up
Weight loss measures recommended
Obesity likely contributing to respiratory symptoms
Consider referral to bariatric center..
Echocardiogram 09/09/24-EF 55-60%, no valvular disease
Overweight placement to subacute nursing facility
Will need outpatient pulmonary evaluation in our office for PFTs and 6MWT
Risk factors assessed for underlying sleep disordered breathing also noted, recommend outpatient PSG/sleep evaluation-gave option to follow up locally-lives in [place]
Diagnostic Data
Chest X-Ray: 09/07/24- Technical limitations including lordotic projection and patient rotation to the left. The heart appears enlarged, though may be accentuated by technical factors. No definite significant vascular congestion. Mild localized
interstitial prominence in the medial right lung base, small infiltrate versus atelectasis. No pneumothorax identified.
Reports and relevant images were personally reviewed.
Subjective Data
-
Date of Service:
Date of Service: September 10, 2024
Chief Complaint: Pulmonary Follow Up and Dyspnea Follow Up
Subjective:
Using BiPAP and oxygen, no complaints of worsening shortness of breath or chest pain
Review of Systems
General: Other (. HPI)
Objective Data
Data Reviewed
Vital Signs / I&O:
Vital Signs
Temp Pulse Resp BP Pulse Ox
98.3 F 63 20 155/79 94
09/10/24 07:00 09/10/24 07:00 09/10/24 07:00 09/10/24 07:00 09/10/24 07:00
Intake and Output
09/09/24 09/10/24 09/11/24
06:59 06:59 06:59
Intake Total 2420 / 2420 480 / 480 480 / 480
Output Total 1400 / 1400 350 / 350 250 / 250
Balance 1020 / 1020 130 / 130 230 / 230
SaO2: 94
Nasal Cannula flow liters per minute: 2
Physical Exam
General: Respiratory Distress (n) and Comfortable
HEENT: Normocephalic, Anicteric and Moist Mucous Membranes
Cardiovascular: Regular Rhythm
Respiratory: Wheeze (n), Crackles (n), Non-Labored Respirations, Accessory Resp Muscle Use (n) and Stridor (n)
GI: Soft and Distended
Neurology: Awake and Alert
Skin: Warm, Good Color, Cyanosis (n) and Jaundice (n)
Labs/Micro/Reports
Lab Data
09/09/24 08:31
09/09/24 08:31
[2024-09-10 11:00] VITALS: BP 152/82
[2024-09-10 11:45] LABS: Glucose - Point of Care 138 mg/dl (70-99)
--- NOTE | 2024-09-10 12:12 | W.PN.HOSP.TC ---
Today's Communication/Plan
-
Medically stable
Awaiting for placement
Disposition difficult
Started on metformin
Diabetic education
Assessment / Plan
Assessment / Plan
#Weakness with changes in EKG
#H/O AF
-Troponin negative over multiple draws, low suspicion for ACS
-Did not have any symptoms of chest pain here
-Remains on home amiodarone, carvedilol, Eliquis
-Continue to monitor on telemetry. Echo with overall preserved left ventricular ejection fraction 55 to 60% with no significant valve disease.
#Suspected OHS/JENNI
-Patient states he has required oxygen use recently at rehab and in hospital
-Due to his morbid obesity/habitus, OHS is very likely
-Pulmonology consulted on admission for consideration of pressure support
-Will need formal PFTs and sleep study as outpatient
-Continue low-level oxygen, monitor clinically
#Prolonged Qtc
-bupropioon and rispderidal held.
-QTc improving.
#DM2
-A1C of 6.7
-ADA. Iss and accuchecks. Lifestyle modification and metformin.
-Diabetes education
#Morbid obesity
-BMI here 70.5 per today's vital signs
-Affects all aspects of care, contributing to OHS/JENNI and ambulatory issues
-Should be started on GLP-1 agonist or have consideration for bariatric procedure at discharge
# Hypokalemia
-Continue to monitor and replete as needed
#paroxysmal atrial fibrillation
-cont amiodarone and eliquis
-follows at [facility] cardiology-Dr. Keith.
#Dehydration
-Was found on floor unable to get up, BUN/Cr > 20 on arrival
-Maintenance IVF for now-stop IVF
#Chronic leg swelling/lymphedema
-Cont lasix.
-Compression therapy added
#Chronic toe wounds
-Nursing care, hygiene assistance
#Ambulatory dysfunction/failure to thrive
-Secondary to severe obesity
-PT/OT-SNF. Cm aware.
Stage II right posterior ear pressure injury-poa
DVT prophylaxis: Home Eliquis
Diet: Cholesterol-lowering
CODE STATUS: Full code
Anticipated Discharge: Today
Subjective/Interval History
-
Date of Service: September 10, 2024
states used cpap overnight
Objective Data
-
Vital Signs:
Vital Signs
Temp Pulse Resp BP Pulse Ox
98.4 F 59 22 152/82 93
09/10/24 11:00 09/10/24 11:00 09/10/24 11:00 09/10/24 11:00 09/10/24 11:00
I&O
09/09/24 09/10/24 09/11/24
06:59 06:59 06:59
Intake Total 2420 / 2420 480 / 480 480 / 480
Output Total 1400 / 1400 350 / 350 250 / 250
Balance 1020 / 1020 130 / 130 230 / 230
Data Reviewed
-
Total Time Spent with Patient (in minutes): 55
--- NOTE | 2024-09-10 12:13 | CM ---
Addendum entered by Abril Car 09/10/24 14:25:
CM discussed with Fidel at [facility], [place] location can accept if approved by insurance. CM spoke with patients , Andreia, agreeable to [place] location. Will need updated PT/OT evaluations to submit for auth.
Plan; will try for insurance auth for [facility]
Dr. Pascual Bloom: [phone]
Original Note:
CM received voicemail from patients , spoke to Willam Beckford at [facility], requesting referral sent. CM placed referral to [facility], TT to [facility] liaison with update. CM will continue to follow for all discharge planning needs.
Plan; family requesting [facility] evaluation, no accepting SNF at this time.
[2024-09-10 15:00] VITALS: BP 130/72
[2024-09-10 16:28] LABS: Glucose - Point of Care 114 mg/dl (70-99)
[2024-09-10] MEDS: GLUCOPHAGE 500 MG PO (16:54)
[2024-09-10 19:50] VITALS: BP 127/68
[2024-09-10] MEDS: PRAVACHOL 40 MG PO (20:15)
[2024-09-10] MEDS: KLONOPIN 1 MG PO (20:15)
[2024-09-10 22:33] LABS: Glucose - Point of Care 110 mg/dl (70-99)
[2024-09-10 23:39] VITALS: BP 143/70
[2024-09-11 03:20] VITALS: BP 149/78
[2024-09-11 06:00] VITALS: BMI 70.3
[2024-09-11 08:07] LABS: Glucose - Point of Care 122 mg/dl (70-99)
[2024-09-11 08:45] VITALS: BP 154/78
[2024-09-11] MEDS: GLUCOPHAGE 500 MG PO ×2 (08:57→18:28)
[2024-09-11] MEDS: KLONOPIN 1 MG PO ×2 (08:57→20:47)
[2024-09-11] MEDS: COREG 25 MG PO ×2 (09:00→20:06)
[2024-09-11] MEDS: PACERONE 200 MG PO (09:00)
[2024-09-11] MEDS: LASIX 40 MG PO (09:00)
[2024-09-11] MEDS: ELIQUIS 5 MG PO ×2 (09:00→20:06)
[2024-09-11] MEDS: PROTONIX 40 MG PO ×2 (09:00→20:08)
--- NOTE | 2024-09-11 10:32 | W.PN.PUL.V3 ---
Today's Communication / Plan
-
.
Continue BiPAP at night.
Overweight rehabilitation placement
Assessment
-
Patient is a 53-year-old male with previous history of atrial fibrillation, super morbid obesity, pneumonia presenting to ER with profound weakness. Had just completed outpatient rehab following admission for pneumonia, oxygen dependent. Chest
x-ray obtained indicating no clear evidence of infection. ABG obtained indicating chronic CO2 retention but well compensated.
He has a history of JENNI, diagnosed some years ago at [facility]. He notes he has been somewhat compliant with PAP, but he does not recall his settings. We are consulted for eval.
Generalized weakness
Super morbid obesity
Chronic hypercarbia, suspect JENNI/OHS
Chronic pulmonary insufficiency due to morbid obesity
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
Respiratory failure secondary to aspiration and pleural effusion, adm 2013
Intentional suicide overdose with acids and alkaline material.
Atrial fibrillation
HTN
Hypercholesterolemia
Esophageal strictures.
Super morbid obesity - BMI > 70
obstructive sleep apnea
bipolar disorder
Sinus surgery age 21
tumor removed
Chronic leg swelling
Toe wounds
Plan
Respiratory status Continues to be relatively stable
Supplemental oxygen as needed-on 2 L 95% saturation
Aspiration precautions.
Incentive spirometry.
Nebulizers if needed-currently not bronchospastic.
CPAP/BiPAP at night- brought in machine-needs supplemental oxygen at night-continue to use
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
Would need outpatient titration study to evaluate for this and increased PAP settings if warranted
He has appointment with sleep provider at [facility] coming up
Weight loss measures recommended
Obesity likely contributing to respiratory symptoms
Consider referral to bariatric center..
Echocardiogram 09/09/24-EF 55-60%, no valvular disease
Overweight placement to subacute nursing facility
Will need outpatient pulmonary evaluation in our office for PFTs and 6MWT
Risk factors assessed for underlying sleep disordered breathing also noted, recommend outpatient PSG/sleep evaluation-gave option to follow up locally-lives in [place]
Diagnostic Data
Chest X-Ray: 09/07/24- Technical limitations including lordotic projection and patient rotation to the left. The heart appears enlarged, though may be accentuated by technical factors. No definite significant vascular congestion. Mild localized
interstitial prominence in the medial right lung base, small infiltrate versus atelectasis. No pneumothorax identified.
Reports and relevant images were personally reviewed.
Subjective Data
-
Date of Service:
Date of Service: September 11, 2024
Chief Complaint: Pulmonary Follow Up and Dyspnea Follow Up
Objective Data
Data Reviewed
Vital Signs / I&O:
Vital Signs
Temp Pulse Resp BP Pulse Ox
97.8 F 56 18 154/78 93
09/11/24 08:45 09/11/24 08:45 09/11/24 08:45 09/11/24 08:45 09/11/24 08:45
Intake and Output
09/10/24 09/11/24 09/12/24
06:59 06:59 06:59
Intake Total 480 / 480 1200 / 1200
Output Total 350 / 350 1425 / 1425 225 / 225
Balance 130 / 130 -225 / -225 -225 / -225
SaO2: 93
Nasal Cannula flow liters per minute: 3
Physical Exam
General: Respiratory Distress (n) and Comfortable
HEENT: Normocephalic, Anicteric and Moist Mucous Membranes
Cardiovascular: Regular Rhythm
Respiratory: Wheeze (n), Crackles (n), Non-Labored Respirations, Accessory Resp Muscle Use (n) and Stridor (n)
GI: Soft and Distended
Neurology: Awake and Alert
Skin: Warm, Good Color, Cyanosis (n) and Jaundice (n)
Labs/Micro/Reports
Lab Data
09/09/24 08:31
09/09/24 08:31
[2024-09-11 11:04] VITALS: BP 147/76
--- NOTE | 2024-09-11 11:29 | W.PN.HOSP.TC ---
Today's Communication/Plan
-
cont metformin
await placement to rehab
ekg for Qtc
cont eliquis
Assessment / Plan
Assessment / Plan
#Weakness with changes in EKG
#H/O AF
-Troponin negative over multiple draws, low suspicion for ACS
-Did not have any symptoms of chest pain here
-Remains on home amiodarone, carvedilol, Eliquis
-Continue to monitor on telemetry. Echo with overall preserved left ventricular ejection fraction 55 to 60% with no significant valve disease.
#Suspected OHS/JENNI
-Patient states he has required oxygen use recently at rehab and in hospital
-Due to his morbid obesity/habitus, OHS is very likely
-Pulmonology consulted on admission for consideration of pressure support
-Will need formal PFTs and sleep study as outpatient
-Continue low-level oxygen, monitor clinically
#Prolonged Qtc
-bupropioon and rispderidal DCed
-QTc improving.
#DM2
-A1C of 6.7
-ADA. Iss and accuchecks. Lifestyle modification and metformin 500mg BID.
-Diabetes education
#Morbid obesity
-BMI here 70.2 per today's vital signs
-Affects all aspects of care, contributing to OHS/JENNI and ambulatory issues
-Should be started on GLP-1 agonist or have consideration for bariatric procedure at discharge
# Hypokalemia
-Continue to monitor and replete as needed
#paroxysmal atrial fibrillation
-cont amiodarone and eliquis
-follows at [facility] cardiology-Dr. Keith.
#Dehydration
-Was found on floor unable to get up, BUN/Cr > 20 on arrival
- stop IVF
#Chronic leg swelling/lymphedema
-Cont lasix.
-Compression therapy added
#Chronic toe wounds
-Nursing care, hygiene assistance
#Ambulatory dysfunction/failure to thrive
-Secondary to severe obesity
-PT/OT-SNF. Cm aware.
Stage II right posterior ear pressure injury-poa
#Constipation
-bowel regimen
DVT prophylaxis: Eliquis
CODE STATUS: Full code
PT/OT-acute rehab. await placement
Anticipated Discharge: Within 24 hours
Subjective/Interval History
-
Date of Service: September 11, 2024
tolerating diet
used CPAP at night
tolerating metformin so far
Objective Data
-
Vital Signs:
Vital Signs
Temp Pulse Resp BP Pulse Ox
97.9 F 56 20 147/76 94
09/11/24 11:04 09/11/24 11:04 09/11/24 11:04 09/11/24 11:04 09/11/24 11:04
I&O
09/10/24 09/11/24 09/12/24
06:59 06:59 06:59
Intake Total 480 / 480 1200 / 1200
Output Total 350 / 350 1425 / 1425 225 / 225
Balance 130 / 130 -225 / -225 -225 / -225
Physical Exam
-
General: Well Developed, No Apparent Distress, Comfortable and Morbidly Obese
HEENT: Normocephalic, Atraumatic, Moist Mucous Membranes, Anicteric and Other (Enlarged neck circumference)
Respiratory: Non Labored Respirations and Decreased Breath Sounds (likely due to body habitus-); Negative Wheezes, Rales or Rhonchi
Cardiac: Regular Rhythm and S1/S2; Negative Murmur, Rub or Gallop
GI: Soft, Nontender, Nondistended and Normal Bowel Sounds
Musculoskeletal: No Clubbing, No Cyanosis, Edema, Right Lower Extrem and Edema, Left Lower Extrem
Skin: Warm; Negative Rash
Neuro: Awake, Alert, Oriented, AO x 3 and Nonfocal/Grossly Intact
Psych: Calm
[2024-09-11 11:32] LABS: Glucose - Point of Care 126 mg/dl (70-99)
[2024-09-11] MEDS: DULCOLAX 10 MG PO (11:48)
[2024-09-11] MEDS: MILK OF MAGNESIA 30 ML PO (11:49)
--- NOTE | 2024-09-11 12:29 | CM ---
Addendum entered by Abril Car 09/11/24 16:02:
CM spoke with Dr. Toribio from , informed auth for acute rehab has been denied, patient does not meet criteria for acute rehab, option for peer to peer appeal: call [phone], fax [phone], reference number [id number]. Call to patients
, Andreia, to provide update. Andreia requesting peer to peer to be completed. TT to Dr. Jeffrey with request.
Original Note:
CM initiated auth through patients insurance for acute rehab to [facility], pending reference [id number], will be sent to [employer] for review. CM will continue to follow for all discharge planning needs.
Plan; awaiting determination from [employer] for review for Acute Rehab approval.
[2024-09-11 16:34] LABS: Glucose - Point of Care 101 mg/dl (70-99)
[2024-09-11 17:58] VITALS: BP 149/80
[2024-09-11] MEDS: WELLBUTRIN SR (12 hour sustained release) 150 MG PO (20:06)
[2024-09-11] MEDS: PRAVACHOL 40 MG PO (20:47)
[2024-09-11 21:27] LABS: Glucose - Point of Care 109 mg/dl (70-99)
[2024-09-11 23:40] VITALS: BP 149/74
[2024-09-12 06:00] VITALS: BMI 70.2
[2024-09-12 07:32] LABS: Glucose - Point of Care 113 mg/dl (70-99)
[2024-09-12] MEDS: ELIQUIS 5 MG PO ×2 (08:23→19:54)
[2024-09-12] MEDS: WELLBUTRIN SR (12 hour sustained release) 150 MG PO ×2 (08:23→20:03)
[2024-09-12] MEDS: PROTONIX 40 MG PO ×2 (08:23→20:04)
[2024-09-12] MEDS: GLUCOPHAGE 500 MG PO ×2 (08:23→16:48)
[2024-09-12] MEDS: PACERONE 200 MG PO (08:24)
[2024-09-12] MEDS: COREG 25 MG PO ×2 (08:25→19:54)
[2024-09-12] MEDS: LASIX 40 MG PO (08:25)
[2024-09-12 09:00] VITALS: BP 139/74
--- NOTE | 2024-09-12 09:22 | W.PN.PUL.V3 ---
Today's Communication / Plan
-
. Continue supplemental option.
Continue CPAP/BiPAP as tolerated.
Outpatient pulmonary/sleep disorders follow-up.
Pulmonary-we will sign off-. Please call with questions
Assessment
-
Patient is a 53-year-old male with previous history of atrial fibrillation, super morbid obesity, pneumonia presenting to ER with profound weakness. Had just completed outpatient rehab following admission for pneumonia, oxygen dependent. Chest
x-ray obtained indicating no clear evidence of infection. ABG obtained indicating chronic CO2 retention but well compensated.
He has a history of JENNI, diagnosed some years ago at [facility]. He notes he has been somewhat compliant with PAP, but he does not recall his settings. We are consulted for eval.
Generalized weakness
Super morbid obesity
Chronic hypercarbia, suspect JENNI/OHS
Chronic pulmonary insufficiency due to morbid obesity
Conditions present [employer]:
Respiratory failure secondary to aspiration and pleural effusion, adm 2013
Intentional suicide overdose with acids and alkaline material.
Atrial fibrillation
HTN
Hypercholesterolemia
Esophageal strictures.
Super morbid obesity - BMI > 70
obstructive sleep apnea
bipolar disorder
Sinus surgery age 21
tumor removed
Chronic leg swelling
Toe wounds
Plan
Respiratory status relatively stable
Supplemental oxygen as needed-on 2 L 95% saturation
Aspiration precautions.
Incentive spirometry.
Nebulizers if needed-currently not bronchospastic.
CPAP/BiPAP at night- brought in machine-needs supplemental oxygen at night-continue to use
Has not followed up with his beater operator at [facility] for many years-states he's had CPAP/BiPAP for about 6 years-likely due for a new machine.
Would need outpatient titration study to evaluate for this and increased PAP settings if warranted
He has appointment with sleep provider at [facility] coming up
Offered local follow-up if he wishes
Weight loss measures recommended
Obesity likely contributing to respiratory symptoms
Consider referral to bariatric center..
Echocardiogram 09/09/24-EF 55-60%, no valvular disease
Overweight placement to subacute nursing facility.
Relatively stable at this point from a pulmonary perspective-we will sign off-. Please call for questions
Will need outpatient pulmonary evaluation in our office for PFTs and 6MWT
Risk factors assessed for underlying sleep disordered breathing also noted, recommend outpatient PSG/sleep evaluation-gave option to follow up locally-lives in [place]
Diagnostic Data
Chest X-Ray: 09/07/24- Technical limitations including lordotic projection and patient rotation to the left. The heart appears enlarged, though may be accentuated by technical factors. No definite significant vascular congestion. Mild localized
interstitial prominence in the medial right lung base, small infiltrate versus atelectasis. No pneumothorax identified.
Reports and relevant images were personally reviewed.
Subjective Data
-
Date of Service:
Date of Service: September 12, 2024
Chief Complaint: Pulmonary Follow Up and Dyspnea Follow Up
Subjective:
No complaints worsening shortness of breath, using CPAP at night with oxygen, but, chest pain, abdominal pain
Review of Systems
General: Other ( per HPI)
Objective Data
Data Reviewed
Vital Signs / I&O:
Vital Signs
Temp Pulse Resp BP Pulse Ox
97.7 F 52 20 139/74 96
09/12/24 09:00 09/12/24 09:00 09/12/24 09:00 09/12/24 09:00 09/12/24 09:00
Intake and Output
09/11/24 09/12/24 09/13/24
06:59 06:59 06:59
Intake Total 1200 / 1200 480 / 480
Output Total 1425 / 1425 1275 / 1275
Balance -225 / -225 -795 / -795
SaO2: 96
Nasal Cannula flow liters per minute: 6
Physical Exam
General: Respiratory Distress (n) and Comfortable
HEENT: Normocephalic, Anicteric and Moist Mucous Membranes
Cardiovascular: Regular Rhythm
Respiratory: Wheeze (n), Crackles (n), Non-Labored Respirations, Accessory Resp Muscle Use (n) and Stridor (n)
GI: Soft and Distended
Neurology: Awake and Alert
Skin: Warm, Good Color, Cyanosis (n) and Jaundice (n)
Labs/Micro/Reports
Lab Data
09/09/24 08:31
09/09/24 08:31
--- NOTE | 2024-09-12 11:41 | W.PN.HOSP.TC ---
Today's Communication/Plan
-
await placement
Assessment / Plan
Assessment / Plan
#Weakness likely multifactorial due to deconditioning, dehydration, OHS/JENNI,
-Troponin negative over multiple draws, low suspicion for ACS
-Did not have any symptoms of chest pain here
-Echo with overall preserved left ventricular ejection fraction 55 to 60% with no significant valve disease.
# Atrial fibrillation unknown chronicity
-Remains on home amiodarone, carvedilol, Eliquis
#Suspected OHS/JENNI
#Chronic hypercarbia
#Chronic hypoxic respiratory insufficiency due to morbid obesity
-Patient states he has required oxygen use recently at rehab and in hospital
-Due to his morbid obesity/habitus, OHS is very likely
-Will need formal PFTs and sleep study as outpatient
-Continue low-level oxygen, monitor clinically
#Prolonged Qtc
-bupropioon and rispderidal DCed
-QTc improving.
#DM2
-A1C of 6.7
-ADA. Iss and accuchecks. Lifestyle modification and metformin 500mg BID.
-Diabetes education
#Morbid obesity
-BMI here 70.2 per today's vital signs
-Affects all aspects of care, contributing to OHS/JENNI and ambulatory issues
-Should be started on GLP-1 agonist or have consideration for bariatric procedure at discharge
# Hypokalemia
-Continue to monitor and replete as needed
#paroxysmal atrial fibrillation
-cont amiodarone and eliquis
-follows at [facility] cardiology-Dr. Keith.
#Dehydration
-Was found on floor unable to get up, BUN/Cr > 20 on arrival
- stop IVF
#Chronic leg swelling/lymphedema
-Cont lasix.
-Compression therapy added
#Chronic toe wounds
-Nursing care, hygiene assistance
#Ambulatory dysfunction/failure to thrive
-Secondary to severe obesity
-PT/OT-SNF. Cm aware.
Stage II right posterior ear pressure injury-poa
#Constipation
-bowel regimen
DVT prophylaxis: Eliquis
CODE STATUS: Full code
PT/OT-acute rehab. Initial authorization denied. Peer to peer pending. Case management working on backup SNF facilities.
Anticipated Discharge: Today
Subjective/Interval History
-
Date of Service: September 12, 2024
using CPAP overnight
had bm yesterday
Objective Data
-
Vital Signs:
Vital Signs
Temp Pulse Resp BP Pulse Ox
97.7 F 52 20 139/74 96
09/12/24 09:00 09/12/24 09:00 09/12/24 09:00 09/12/24 09:00 09/12/24 09:22
I&O
09/11/24 09/12/24 09/13/24
06:59 06:59 06:59
Intake Total 1200 / 1200 480 / 480
Output Total 1425 / 1425 1275 / 1275 375 / 375
Balance -225 / -225 -795 / -795 -375 / -375
Physical Exam
-
General: Well Developed, No Apparent Distress, Comfortable and Morbidly Obese
HEENT: Normocephalic, Atraumatic, Moist Mucous Membranes, Anicteric, Oxygen and Other (Enlarged neck circumference)
Respiratory: Non Labored Respirations and Decreased Breath Sounds (likely due to body habitus-); Negative Wheezes, Rales or Rhonchi
Cardiac: Regular Rhythm and S1/S2; Negative Murmur, Rub or Gallop
GI: Soft, Nontender, Nondistended and Normal Bowel Sounds
Musculoskeletal: No Clubbing, No Cyanosis, Edema, Right Lower Extrem and Edema, Left Lower Extrem
Skin: Warm; Negative Rash
Neuro: Awake, Alert, Oriented, AO x 3 and Nonfocal/Grossly Intact
Psych: Calm
[2024-09-12 12:19] LABS: Glucose - Point of Care 112 mg/dl (70-99)
[2024-09-12 14:50] VITALS: O2SAT 95
--- NOTE | 2024-09-12 15:51 | PTCARENOTE ---
Met with Mr. Armenta to discuss new onset type 2 diabetes and monitor instruction. Explained hemoglobin A1c results and importance of blood glucose monitoring. Instructed Mr. Armenta on the use of the Contour Next EZ glucometer and he was able to
return demonstrate a fingerstick blood glucose with assistance. Reinforcement is needed as he has some difficulty manipulating the lancet device on his own. Prescriptions for testing supplies will be sent to his [facility]'s pharmacy. Mr. Armenta stated
he was waiting to go to rehab and he would have his assist once they returned home. Managing diabetes booklet and instructions on the glucometer were left with Mr. Armenta. I recommended he reach out to the diabetes office if he needs further
assistance or would like to attend the DSME education program once he is discharged from rehab.
--- NOTE | 2024-09-12 16:02 | CM ---
CM spoke with patients insurance to obtain auth denial number for peer to peer, informed no authorization for acute rehab is on file. informed insurance that CM spoke with Senior Buyer yesterday, submitted authoirzation, was provided denial
information, reference number [id number]. reports denial letter was never received. Update to CM Director, update to Dr. Jeffrey. Additional SNF sent as back up plan to Acute Rehab. CM will continue to follow for all discharge planning needs.
Plan; peer to peer to be completed for acute rehab denial.
[2024-09-12 16:03] VITALS: BP 133/72
[2024-09-12 16:37] LABS: Glucose - Point of Care 128 mg/dl (70-99)
[2024-09-12] MEDS: PRAVACHOL 40 MG PO (21:18)
[2024-09-12] MEDS: KLONOPIN 1 MG PO (21:18)
[2024-09-12 22:35] LABS: Glucose - Point of Care 116 mg/dl (70-99)
[2024-09-12 23:00] VITALS: BP 138/74
[2024-09-13 02:27] VITALS: BP 149/76
[2024-09-13 08:50] VITALS: BP 146/80
[2024-09-13 08:53] LABS: Glucose - Point of Care 111 mg/dl (70-99)
[2024-09-13] MEDS: PROTONIX 40 MG PO ×2 (09:25→20:10)
[2024-09-13] MEDS: ELIQUIS 5 MG PO ×2 (09:26→20:10)
[2024-09-13] MEDS: LASIX 40 MG PO (09:26)
[2024-09-13] MEDS: WELLBUTRIN SR (12 hour sustained release) 150 MG PO ×2 (09:26→20:10)
[2024-09-13] MEDS: COREG 25 MG PO ×2 (09:27→20:10)
[2024-09-13] MEDS: PACERONE 200 MG PO (09:27)
[2024-09-13] MEDS: GLUCOPHAGE 500 MG PO ×2 (09:27→18:52)
--- NOTE | 2024-09-13 11:04 | W.PN.HOSP.TC ---
Today's Communication/Plan
-
Check BMP in the morning
Continue with metformin
OOB/PT/OT
Assessment / Plan
Assessment / Plan
#Weakness likely multifactorial due to deconditioning, dehydration, OHS/JENNI, versus polypharmacy
-Troponin negative over multiple draws, low suspicion for ACS
-Did not have any symptoms of chest pain here
-Echo with overall preserved left ventricular ejection fraction 55 to 60% with no significant valve disease.
-Discontinue Risperdal and bupropion.
# Atrial fibrillation unknown chronicity
-Remains on home amiodarone, carvedilol, Eliquis
#Suspected OHS/JENNI
#Chronic hypercarbia
#Chronic hypoxic respiratory insufficiency due to morbid obesity
-Patient states he has required oxygen use recently at rehab and in hospital
-Due to his morbid obesity/habitus, OHS is very likely
-Will need formal PFTs and sleep study as outpatient
-Continue low-level oxygen, monitor clinically
#Prolonged Qtc
-bupropioon and rispderidal DCed
-QTc improving.
#DM2
-A1C of 6.7
-ADA. Iss and accuchecks. Lifestyle modification and metformin 500mg BID.
-Diabetes education. POC 111 AM
#Morbid obesity due to excess calories
-BMI here 70.2 per today's vital signs
-Affects all aspects of care, contributing to OHS/JENNI and ambulatory issues
-Should be started on GLP-1 agonist or have consideration for bariatric procedure at discharge
-Discussed with spouse with plan for patient to be started on Wegovy as outpatient.
# Hypokalemia
-Continue to monitor and replete as needed
#paroxysmal atrial fibrillation
-cont amiodarone and eliquis
-follows at [facility] cardiology-Dr. Keith.
#Dehydration
-Was found on floor unable to get up, BUN/Cr > 20 on arrival
- stop IVF
#Chronic leg swelling/lymphedema
-Cont lasix.
-Compression therapy added
#Chronic toe wounds
-Nursing care, hygiene assistance
#Ambulatory dysfunction/failure to thrive
-Secondary to severe obesity
-PT/OT-SNF. Cm aware.
Stage II right posterior ear pressure injury-poa
#Constipation
-bowel regimen
DVT prophylaxis: Eliquis
CODE STATUS: Full code
PT/OT-acute rehab. Initial authorization denied. Peer to peer also denied. Case management looking into options.
Discussed with patient spouse at bedside in detail.
Anticipated Discharge: Today
Subjective/Interval History
-
Date of Service: September 13, 2024
Resting in bed comfortably
No overnight events
Using CPAP at bedtime
Tolerating diet
Objective Data
-
Vital Signs:
Vital Signs
Temp Pulse Resp BP Pulse Ox
98.2 F 54 22 149/76 94
09/13/24 02:27 09/13/24 02:27 09/13/24 02:27 09/13/24 02:27 09/13/24 02:27
I&O
09/12/24 09/13/24 09/14/24
06:59 06:59 06:59
Intake Total 480 / 480 440 / 440
Output Total 1275 / 1275 1675 / 1675
Balance -795 / -795 -1235 / -1235
Physical Exam
-
General: Well Developed, No Apparent Distress, Comfortable and Morbidly Obese
HEENT: Normocephalic, Atraumatic, Moist Mucous Membranes, Anicteric, Oxygen and Other (Enlarged neck circumference)
Respiratory: Non Labored Respirations and Decreased Breath Sounds (likely due to body habitus-); Negative Wheezes, Rales or Rhonchi
Cardiac: Regular Rhythm and S1/S2; Negative Murmur, Rub or Gallop
GI: Soft, Nontender, Nondistended and Normal Bowel Sounds
Musculoskeletal: No Clubbing, No Cyanosis, Edema, Right Lower Extrem and Edema, Left Lower Extrem
Skin: Warm; Negative Rash
Neuro: Awake, Alert, Oriented, AO x 3 and Nonfocal/Grossly Intact
Psych: Calm
--- NOTE | 2024-09-13 11:29 | CM ---
CM reviewed chart, peer to peer conducted, denial upheld. Patient seen bedside with , discussed option for member expedite appeal, provided with reference number [id number], instructed to call member services for appeal. CM discussed at
this time, no accepting SNFS, agreeable to referrals to [facility]. CM will send additional SNFS. CM will continue to follow for all discharge planning needs.
Plan; family conducting member appeal, additional SNFS sent, will require insurance auth.
[2024-09-13] MEDS: KLONOPIN 1 MG PO ×2 (11:35→20:17)
[2024-09-13 12:03] LABS: Glucose - Point of Care 122 mg/dl (70-99)
--- NOTE | 2024-09-13 13:46 | PN.CDI ---
CDI
- -
CDI:
Physician Documentation Request
Admit Date: 09/07/24 23:50
Dear Doctor Ranjan,
Please review the following and provide your response in the progress notes.
Clinical Indicators:
Pt admitted with weakness, suspected OHS/JENNI.
H&P: 'He was just released from a rehab facility after being admitted for pneumonia. He is oxygen dependent now and has been very weak....He has been short of breath but feels better on oxygen...Physical exam -Respiratory distress'
09/08 Pulm: 'Hypoxemia noted on arrival, placed on supplemental O2...Chronic hypercarbia.'
Pt has been receiving 2-6L O2NC.
Please clarify the type and acuity of respiratory status:
Acute on chronic hypercapnic respiratory failure
Chronic hypercapnic respiratory failure
Other
Use of terms such as suspected, likely, concern for, or probable (associated with a specific diagnosis that is being evaluated, monitored, or treated as if it exists) are acceptable and can be coded in the inpatient setting, when documented at the
time of discharge.
Thank you,
Lizett Sharma RN, BSN
CDI Specialist
Available via [place] [employer]
Please use your independent medical judgment in providing your response.
[2024-09-13 15:25] VITALS: BP 141/81
[2024-09-13 16:37] LABS: Glucose - Point of Care 125 mg/dl (70-99)
[2024-09-13] MEDS: SENOKOT-S 1 TABLET PO (20:13)
[2024-09-13] MEDS: PRAVACHOL 40 MG PO (20:13)
--- NOTE | 2024-09-13 20:49 | RESPNOTE ---
assisted pt with own cpap machine
[2024-09-13 23:00] VITALS: BP 128/72
[2024-09-13 23:14] LABS: Glucose - Point of Care 112 mg/dl (70-99)
[2024-09-14 07:14] LABS: % Basophils 0.8 % (0-2); % Eosinophils 1.6 % (0-6); % Immature Granulocytes 0.8 % (0-0.5); % Monocytes 10.4 % (1.7-9.3); % Neutrophils 63.4 % (42.2-75.2); Absolute Eosinophils 0.1 10^3/uL (0-0.7); Absolute Lymphocytes 0.9 10^3/uL (1.2-3.4); Absolute Monocytes 0.4 10^3/uL (0.1-0.6); Absolute Neutrophils 2.4 10^3/uL (1.4-6.5); Hematocrit 36.6 % (39.0-52.0); Hemoglobin 11.8 g/dL (13.0-18.0); Mean Corp Hgb Conc. 32.2 g/dL (33.0-37.0); Mean Corpuscular Hgb 29.4 pg (27.0-31.0); Mean Corpuscular Volume 91.3 fL (80.0-94.0); Mean Platelet Volume 10.8 fL (7.4-10.4); Nucleated Red Blood Cells % 0 % (-); Platelet Count 188 10^3/uL (130-400); Red Blood Cell Count 4.01 10^6/uL (4.70-6.10); White Blood Cell Count 3.8 10^3/uL (4.8-10.8)
[2024-09-14 07:25] LABS: Blood Urea Nitrogen 20 mg/dl (9-20); Calcium 8.5 mg/dl (8.4-10.2); Carbon Dioxide 38 mmol/L (22-30); Chloride 95 mmol/L (98-107); Estimated Creatinine Clearance > 125 ml/min; Glucose 107 mg/dl (70-99); Magnesium 2.1 mg/dl (1.6-2.3); Potassium 3.6 mmol/L (3.5-5.1); Sodium 141 mmol/L (135-145); eGFR > 60.00
[2024-09-14 08:03] LABS: Glucose - Point of Care 110 mg/dl (70-99)
[2024-09-14 08:17] VITALS: BP 140/82
[2024-09-14] MEDS: DESENEX/MITRAZOL/ZEASORB 1 APPLIC TOPICAL ×2 (10:35→21:52)
[2024-09-14] MEDS: PROTONIX 40 MG PO ×2 (10:37→21:51)
[2024-09-14] MEDS: GLUCOPHAGE 500 MG PO ×2 (10:37→17:57)
[2024-09-14] MEDS: WELLBUTRIN SR (12 hour sustained release) 150 MG PO ×2 (10:37→21:51)
[2024-09-14] MEDS: ELIQUIS 5 MG PO ×2 (10:38→21:51)
[2024-09-14] MEDS: COREG 25 MG PO ×2 (10:38→21:51)
[2024-09-14] MEDS: LASIX 40 MG PO (10:38)
[2024-09-14] MEDS: PACERONE 200 MG PO (10:38)
[2024-09-14] MEDS: SENOKOT-S 1 TABLET PO ×2 (10:45→21:54)
[2024-09-14 12:21] LABS: Glucose - Point of Care 127 mg/dl (70-99)
--- NOTE | 2024-09-14 12:56 | W.PN.HOSP.TC ---
Today's Communication/Plan
-
await placement
wean o2
cont cpap
oob
Assessment / Plan
Assessment / Plan
#Weakness likely multifactorial due to deconditioning, dehydration, OHS/JENNI, versus polypharmacy
-Troponin negative over multiple draws, low suspicion for ACS
-Did not have any symptoms of chest pain here
-Echo with overall preserved left ventricular ejection fraction 55 to 60% with no significant valve disease.
-Discontinue Risperdal and bupropion.
#Suspected OHS/JENNI
#Chronic hypercarbia
#Chronic hypoxic respiratory insufficiency due to morbid obesity
-Patient states he has required oxygen use recently at rehab and in hospital
-Due to his morbid obesity/habitus, OHS is very likely
-Will need formal PFTs and sleep study as outpatient
-Continue low-level oxygen, monitor clinically
#Prolonged Qtc
-bupropioon and rispderidal DCed
-QTc improving.
#DM2
-A1C of 6.7
-ADA. Iss and accuchecks. Lifestyle modification and metformin 500mg BID.
-Diabetes education. POC 111 AM
#Morbid obesity due to excess calories
-BMI here 70.2 per today's vital signs
-Affects all aspects of care, contributing to OHS/JENNI and ambulatory issues
-Should be started on GLP-1 agonist or have consideration for bariatric procedure at discharge
-Discussed with spouse with plan for patient to be started on Wegovy as outpatient.
# Hypokalemia
-Continue to monitor and replete as needed
#paroxysmal atrial fibrillation
-cont amiodarone and eliquis and coreg
-follows at [facility] cardiology-Dr. Keith.
#Dehydration
-Was found on floor unable to get up, BUN/Cr > 20 on arrival
- stop IVF
#Chronic leg swelling/lymphedema
-Cont lasix. Cr at 0.8
-Compression therapy added
#Chronic toe wounds
-Nursing care, hygiene assistance
#Ambulatory dysfunction/failure to thrive
-Secondary to severe obesity
-PT/OT-SNF. Cm aware.
Stage II right posterior ear pressure injury-poa
#Constipation
-bowel regimen
#Mild leukopenia
-monitor for now
DVT prophylaxis: Eliquis
CODE STATUS: Full code
PT/OT-acute rehab. Initial authorization denied. Peer to peer also denied. Case management looking into options.
Discussed with patient spouse at bedside in detail on 09/13.
Anticipated Discharge: Today
Subjective/Interval History
-
Date of Service: September 14, 2024
resting in bed comfortably
tolerating diet
Objective Data
-
Labs:
Laboratory Results
09/14/24
06:19
WBC 3.8 L
Hgb 11.8 L
Hct 36.6 L
Plt Count 188
Sodium 141
Potassium 3.6
Chloride 95 L
Carbon Dioxide 38 H
BUN 20
Creatinine 0.8
Glucose 107 H
Calcium 8.5
Vital Signs:
Vital Signs
Temp Pulse Resp BP Pulse Ox
97.4 F 56 18 140/82 93
09/14/24 08:17 09/14/24 08:17 09/14/24 08:17 09/14/24 08:17 09/14/24 08:17
I&O
09/13/24 09/14/24 09/15/24
06:59 06:59 06:59
Intake Total 440 / 440 240 / 240
Output Total 1675 / 1675 1250 / 1250
Balance -1235 / -1235 -1010 / -1010
Physical Exam
-
General: Well Developed, No Apparent Distress, Comfortable and Morbidly Obese
HEENT: Normocephalic, Atraumatic, Moist Mucous Membranes, Anicteric, Oxygen (3L) and Other (Enlarged neck circumference)
Respiratory: Non Labored Respirations and Decreased Breath Sounds (likely due to body habitus-); Negative Wheezes, Rales or Rhonchi
Cardiac: Regular Rhythm and S1/S2; Negative Murmur, Rub or Gallop
GI: Soft, Nontender, Nondistended and Normal Bowel Sounds
Musculoskeletal: No Clubbing, No Cyanosis, Edema, Right Lower Extrem and Edema, Left Lower Extrem
Skin: Warm; Negative Rash
Neuro: Awake, Alert, Oriented, AO x 3 and Nonfocal/Grossly Intact
Psych: Calm
[2024-09-14] MEDS: KLONOPIN 1 MG PO ×2 (15:11→21:57)
[2024-09-14 17:16] VITALS: BP 136/68
[2024-09-14 17:19] LABS: Glucose - Point of Care 93 mg/dl (70-99)
[2024-09-14 21:33] LABS: Glucose - Point of Care 94 mg/dl (70-99)
[2024-09-14] MEDS: PRAVACHOL 40 MG PO (21:54)
[2024-09-15 01:36] VITALS: BP 123/76
[2024-09-15 07:51] LABS: Glucose - Point of Care 103 mg/dl (70-99)
[2024-09-15 08:05] VITALS: BP 139/81
[2024-09-15] MEDS: PROTONIX 40 MG PO ×2 (08:17→20:48)
[2024-09-15] MEDS: GLUCOPHAGE 500 MG PO ×2 (08:17→16:37)
[2024-09-15] MEDS: SENOKOT-S 1 TABLET PO ×2 (08:18→20:48)
[2024-09-15] MEDS: COREG 25 MG PO ×2 (08:18→20:47)
[2024-09-15] MEDS: ELIQUIS 5 MG PO ×2 (08:18→20:48)
[2024-09-15] MEDS: WELLBUTRIN SR (12 hour sustained release) 150 MG PO ×2 (08:18→20:48)
[2024-09-15] MEDS: LASIX 40 MG PO (08:18)
[2024-09-15] MEDS: PACERONE 200 MG PO (08:18)
[2024-09-15] MEDS: DESENEX/MITRAZOL/ZEASORB 1 APPLIC TOPICAL ×2 (08:21→20:47)
--- NOTE | 2024-09-15 11:28 | W.PN.HOSP.TC ---
Addendum entered and electronically signed by Ramu Woodruff MD 09/15/24 13:21:
Suspected chronic hypercapnic respiratory failure
Original Note:
Today's Communication/Plan
-
cont cardiac meds
oob
cont with CPAP
await placement
Assessment / Plan
Assessment / Plan
#Weakness likely multifactorial due to deconditioning, dehydration, OHS/JENNI, versus polypharmacy
-Troponin negative over multiple draws, low suspicion for ACS
-Did not have any symptoms of chest pain here
-Echo with overall preserved left ventricular ejection fraction 55 to 60% with no significant valve disease.
-Discontinue Risperdal and bupropion.
#Suspected OHS/JENNI
#Chronic hypercarbia
#Chronic hypoxic respiratory insufficiency due to morbid obesity
-Patient states he has required oxygen use recently at rehab and in hospital
-Due to his morbid obesity/habitus, OHS is very likely
-Will need formal PFTs and sleep study as outpatient
-Continue low-level oxygen, monitor clinically
#Prolonged Qtc
-bupropioon and rispderidal DCed
-QTc improving.
#DM2
-A1C of 6.7
-ADA. Iss and accuchecks. Lifestyle modification and metformin 500mg BID.
-Diabetes education. POC 111 AM
#Morbid obesity due to excess calories
-BMI here 70.2 per today's vital signs
-Affects all aspects of care, contributing to OHS/JENNI and ambulatory issues
-Should be started on GLP-1 agonist or have consideration for bariatric procedure at discharge
-Discussed with spouse with plan for patient to be started on Wegovy as outpatient.
# Hypokalemia
-Continue to monitor and replete as needed
#paroxysmal atrial fibrillation
-cont amiodarone and eliquis and coreg
-follows at [facility] cardiology-Dr. Keith.
#Dehydration
-Was found on floor unable to get up, BUN/Cr > 20 on arrival
- stop IVF
#Chronic leg swelling/lymphedema
-Cont lasix. Cr at 0.8
-Compression therapy added
#Chronic toe wounds
-Nursing care, hygiene assistance
#Ambulatory dysfunction/failure to thrive
-Secondary to severe obesity
-PT/OT- Cm aware.
Stage II right posterior ear pressure injury-poa
#Constipation
-bowel regimen.
#Mild leukopenia
-monitor for now
DVT prophylaxis: Eliquis
CODE STATUS: Full code
PT/OT-acute rehab. Initial authorization denied. Peer to peer also denied. Spouse to do family appeal-awaiting answer. Case management looking into options for SNF. Extremely difficult disposition
Discussed with patient spouse at bedside in detail on 09/13.
Anticipated Discharge: Today
Subjective/Interval History
-
Date of Service: September 15, 2024
resting in bed comfortably
compliant with CPAP overnight
watching TV
Objective Data
-
Vital Signs:
Vital Signs
Temp Pulse Resp BP Pulse Ox
97.8 F 64 20 139/61 97
09/15/24 08:05 09/15/24 08:18 09/15/24 08:05 09/15/24 08:18 09/15/24 08:05
I&O
09/14/24 09/15/24 09/16/24
06:59 06:59 06:59
Intake Total 240 / 240 480 / 480 480 / 480
Output Total 1250 / 1250 1250 / 1250
Balance -1010 / -1010 -770 / -770 480 / 480
Physical Exam
-
General: Well Developed, No Apparent Distress, Comfortable and Morbidly Obese
HEENT: Normocephalic, Atraumatic, Moist Mucous Membranes, Anicteric, Oxygen (3L) and Other (Enlarged neck circumference)
Respiratory: Non Labored Respirations and Decreased Breath Sounds (likely due to body habitus-); Negative Wheezes, Rales or Rhonchi
Cardiac: Regular Rhythm and S1/S2; Negative Murmur, Rub or Gallop
GI: Soft, Nontender, Nondistended and Normal Bowel Sounds
Musculoskeletal: No Clubbing, No Cyanosis, Edema, Right Lower Extrem and Edema, Left Lower Extrem
Skin: Warm; Negative Rash
Neuro: Awake, Alert, Oriented, AO x 3 and Nonfocal/Grossly Intact
Psych: Calm
[2024-09-15 11:42] LABS: Glucose - Point of Care 119 mg/dl (70-99)
[2024-09-15] MEDS: KLONOPIN 1 MG PO ×2 (13:05→22:01)
[2024-09-15 15:45] VITALS: BP 134/74
[2024-09-15 17:05] LABS: Glucose - Point of Care 91 mg/dl (70-99)
[2024-09-15 17:30] VITALS: BP 134/74; PULSE 51
[2024-09-15] MEDS: PRAVACHOL 40 MG PO (20:48)
[2024-09-15 22:07] LABS: Glucose - Point of Care 95 mg/dl (70-99)
[2024-09-15 22:40] VITALS: BP 154/73
[2024-09-16 07:53] LABS: Glucose - Point of Care 124 mg/dl (70-99)
[2024-09-16 09:08] VITALS: BP 151/89; PULSE 59; O2SAT 94
[2024-09-16 09:26] VITALS: BP 131/78
[2024-09-16] MEDS: GLUCOPHAGE 500 MG PO ×2 (09:31→16:58)
[2024-09-16] MEDS: PACERONE 200 MG PO (09:31)
[2024-09-16] MEDS: LASIX 40 MG PO (09:31)
[2024-09-16] MEDS: PROTONIX 40 MG PO ×2 (09:31→19:55)
[2024-09-16] MEDS: COREG 25 MG PO ×2 (09:31→19:55)
[2024-09-16] MEDS: WELLBUTRIN SR (12 hour sustained release) 150 MG PO ×2 (09:32→19:55)
[2024-09-16] MEDS: ELIQUIS 5 MG PO ×2 (09:32→19:55)
[2024-09-16] MEDS: SENOKOT-S 1 TABLET PO ×2 (09:32→19:55)
[2024-09-16] MEDS: DESENEX/MITRAZOL/ZEASORB 1 APPLIC TOPICAL ×2 (09:35→19:55)
--- NOTE | 2024-09-16 10:45 | CM ---
Addendum entered by Elmira Gambino 09/16/24 14:53:
CM confirmed with [facility] physician that Peer to Peer was completed and denied. Updated to patient and reviewed referrals to SNF options. CM sent updated referrals and awaiting responses. CM will continue to follow for discharge planning needs.
Plan; SNF
Original Note:
CM spoke with patient in room and via phone. Per she was told by julio and erwin that the Peer to Peer was not completed and she did talk to them on monday about an expedited appeal. CM will continue to follow for discharge planning
needs.
Plan; SNF vs Acute Rehab
[2024-09-16 12:17] LABS: Glucose - Point of Care 114 mg/dl (70-99)
--- NOTE | 2024-09-16 13:11 | W.PN.HOSP.TC ---
Today's Communication/Plan
-
Discharge planning
Assessment / Plan
Assessment / Plan
#Weakness likely multifactorial due to deconditioning, dehydration, OHS/JENNI, versus polypharmacy
-Troponin negative over multiple draws, low suspicion for ACS
-Did not have any symptoms of chest pain here
-Echo with overall preserved left ventricular ejection fraction 55 to 60% with no significant valve disease.
-Discontinue Risperdal and bupropion.
-Patient is now medically stable for discharge, pending authorization and placement for SNF versus AIR
#Suspected OHS/JNENI
#Chronic hypercarbia
#Chronic hypoxic respiratory insufficiency due to morbid obesity
-Patient states he has required oxygen use recently at rehab and in hospital
-Due to his morbid obesity/habitus, OHS is very likely
-Will need formal PFTs and sleep study as outpatient
-Continue low-level oxygen, monitor clinically
#Prolonged Qtc
-bupropion and Risperdal DCed
-QTc improved
#DM2
-A1C of 6.7
-ADA. Iss and accuchecks.
-Lifestyle modification and metformin 500mg BID.
-Diabetes education
#Morbid obesity due to excess calories
-BMI here 70.2 per today's vital signs
-Affects all aspects of care, contributing to OHS/JENNI and ambulatory issues
-Should be started on GLP-1 agonist or have consideration for bariatric procedure at discharge
-Discussed with spouse with plan for patient to be started on Wegovy as outpatient.
#Hypokalemia
-Continue to monitor and replete as needed
#paroxysmal atrial fibrillation
-cont amiodarone and eliquis and coreg
-follows at [facility] cardiology-Dr. Keith.
#Dehydration
-Was found on floor unable to get up, BUN/Cr > 20 on arrival
- stop IVF
#Chronic leg swelling/lymphedema
-Cont lasix. Cr stable
-Compression therapy added
#Chronic toe wounds
-Nursing care, hygiene assistance
#Ambulatory dysfunction/failure to thrive
-Secondary to severe obesity
-PT/OT- Cm aware.
#Stage II right posterior ear pressure injury-poa
#Constipation
-bowel regimen.
#Mild leukopenia
-monitor for now
DVT prophylaxis: Eliquis
CODE STATUS: Full code
PT/OT-acute rehab. Initial authorization denied. Peer to peer also denied. Spouse to do family appeal-awaiting answer. Case management looking into options for SNF. Extremely difficult disposition
Discussed with patient spouse on 09/13.
Anticipated Discharge: Within 24 hours
Subjective/Interval History
-
Date of Service: September 16, 2024
Seen and examined at the bedside. No acute events reported overnight. AFVSS on 3 L oxygen
Was walking around the halls, no desaturations noted, remains on 3 L comfortably
Denies any acute complaints today.
Objective Data
-
Vital Signs:
Vital Signs
Temp Pulse Resp BP Pulse Ox
97.7 F 63 16 131/78 93
09/16/24 09:26 09/16/24 09:26 09/16/24 09:26 09/16/24 09:26 09/16/24 09:26
I&O
09/15/24 09/16/24 09/17/24
06:59 06:59 06:59
Intake Total 480 / 480 680 / 680
Output Total 1250 / 1250 750 / 750
Balance -770 / -770 -70 / -70
Review of Systems
-
History Source: Patient
All other systems: Reviewed and negative
Physical Exam
-
General: Well Developed, No Apparent Distress, Comfortable and Morbidly Obese
HEENT: Normocephalic, Atraumatic, Moist Mucous Membranes and Anicteric
Respiratory: Clear to Auscultation and Non Labored Respirations; Negative Wheezes, Rales, Rhonchi or Accessory Resp Muscle Use
Cardiac: Regular Rhythm and S1/S2; Negative Murmur, Rub or Gallop
GI: Soft, Nontender, Nondistended and Normal Bowel Sounds
Musculoskeletal: No Clubbing, No Cyanosis, No Edema and Normal Gait & Station
Skin: Warm, Dry and Normal Turgor; Negative Rash
Neuro: AO x 3 and Nonfocal/Grossly Intact; Negative Tremors
Psych: Calm
[2024-09-16] MEDS: KLONOPIN 1 MG PO ×2 (14:08→19:55)
[2024-09-16 16:56] VITALS: BP 175/72
[2024-09-16 16:58] LABS: Glucose - Point of Care 95 mg/dl (70-99)
[2024-09-16 18:17] VITALS: BP 151/80
[2024-09-16] MEDS: PRAVACHOL 40 MG PO (19:55)
[2024-09-16 21:24] LABS: Glucose - Point of Care 93 mg/dl (70-99)
[2024-09-16 22:45] VITALS: BP 151/91
[2024-09-17 07:20] VITALS: BP 152/83
[2024-09-17 08:05] LABS: Glucose - Point of Care 120 mg/dl (70-99)
[2024-09-17] MEDS: WELLBUTRIN SR (12 hour sustained release) 150 MG PO ×2 (08:27→20:30)
[2024-09-17] MEDS: PROTONIX 40 MG PO ×2 (08:27→20:20)
[2024-09-17] MEDS: COREG 25 MG PO ×2 (08:27→20:20)
[2024-09-17] MEDS: SENOKOT-S 1 TABLET PO ×2 (08:27→20:20)
[2024-09-17] MEDS: LASIX 40 MG PO (08:27)
[2024-09-17] MEDS: ELIQUIS 5 MG PO ×2 (08:27→20:20)
[2024-09-17] MEDS: GLUCOPHAGE 500 MG PO ×2 (08:27→17:18)
[2024-09-17] MEDS: PACERONE 200 MG PO (08:27)
[2024-09-17] MEDS: DESENEX/MITRAZOL/ZEASORB 1 APPLIC TOPICAL ×2 (08:28→20:19)
[2024-09-17] MEDS: KLONOPIN 1 MG PO (10:54)
[2024-09-17 11:34] LABS: Glucose - Point of Care 111 mg/dl (70-99)
--- NOTE | 2024-09-17 12:28 | W.PN.HOSP.TC ---
Today's Communication/Plan
-
Discharge planning
Low-dose Ativan for anxiety
Zofran for nausea
Assessment / Plan
Assessment / Plan
#Weakness likely multifactorial due to deconditioning, dehydration, OHS/JENNI, versus polypharmacy
-Troponin negative over multiple draws, low suspicion for ACS
-Did not have any symptoms of chest pain here
-Echo with overall preserved left ventricular ejection fraction 55 to 60% with no significant valve disease.
-Discontinue Risperdal and bupropion.
-Patient is now medically stable for discharge, pending authorization and placement for SNF versus AIR
#Suspected OHS/JENNI
#Chronic hypercarbia
#Chronic hypoxic respiratory insufficiency due to morbid obesity
-Patient states he has required oxygen use recently at rehab and in hospital
-Due to his morbid obesity/habitus, OHS is very likely
-Will need formal PFTs and sleep study as outpatient
-Continue low-level oxygen, monitor clinically
#Prolonged Qtc
-bupropion and Risperdal DCed
-Started on Zofran for nausea
-QTc improved despite use of Zofran
#DM2
-A1C of 6.7
-ADA. Iss and accuchecks.
-Lifestyle modification and metformin 500mg BID.
-Diabetes education
#Morbid obesity due to excess calories
-BMI here 70.2 per today's vital signs
-Affects all aspects of care, contributing to OHS/JENNI and ambulatory issues
-Should be started on GLP-1 agonist or have consideration for bariatric procedure at discharge
-Discussed with spouse with plan for patient to be started on Wegovy as outpatient.
#Hypokalemia
-Continue to monitor and replete as needed
#paroxysmal atrial fibrillation
-cont amiodarone and eliquis and coreg
-follows at [facility] cardiology-Dr. Keith.
#Dehydration
-Was found on floor unable to get up, BUN/Cr > 20 on arrival
-S/p course of IV fluid
#Chronic leg swelling/lymphedema
-Cont lasix. Cr stable
-Compression therapy added
#Chronic toe wounds
-Nursing care, hygiene assistance
#Ambulatory dysfunction/failure to thrive
-Secondary to severe obesity
-PT/OT- Cm aware.
#Stage II right posterior ear pressure injury-poa
#Constipation
-bowel regimen.
#Mild leukopenia
-monitor for now
#Anxiety
-Home regimen held due to QTc prolongation
-Started low-dose Ativan as needed for significant anxiety
-Stated his anxiety gives him some nausea, ordered Zofran as needed
DVT prophylaxis: Eliquis
CODE STATUS: Full code
PT/OT-acute rehab. Initial authorization denied. Peer to peer also denied. Spouse to do family appeal-awaiting answer. Case management looking into options for SNF. Extremely difficult disposition
Discussed with patient spouse on 09/13.
Anticipated Discharge: Within 24 hours
Subjective/Interval History
-
Date of Service: September 17, 2024
Seen and examined at the bedside. No acute events reported overnight. AFVSS on 3 L oxygen
He states he has some anxiety related to going to rehab, neck steps after hospital stay
Denies any other acute complaints
Objective Data
-
Vital Signs:
Vital Signs
Temp Pulse Resp BP Pulse Ox
97.3 F 55 20 152/83 93
09/17/24 07:20 09/17/24 08:27 09/17/24 07:20 09/17/24 08:27 09/17/24 10:19
I&O
09/16/24 09/17/24 09/18/24
06:59 06:59 06:59
Intake Total 680 / 680 1200 / 1200
Output Total 750 / 750 700 / 700
Balance -70 / -70 500 / 500
Review of Systems
-
History Source: Patient
All other systems: Reviewed and negative
Physical Exam
-
General: Well Developed, No Apparent Distress, Comfortable and Morbidly Obese
HEENT: Normocephalic, Atraumatic, Moist Mucous Membranes and Anicteric
Respiratory: Clear to Auscultation and Non Labored Respirations
Cardiac: Regular Rhythm and S1/S2; Negative Murmur, Rub or Gallop
GI: Soft, Nontender, Nondistended and Normal Bowel Sounds
Musculoskeletal: No Clubbing, No Cyanosis and No Edema
Skin: Warm, Dry and Normal Turgor; Negative Rash
Neuro: AO x 3 and Nonfocal/Grossly Intact
Psych: Calm
[2024-09-17 15:46] VITALS: BP 125/85
[2024-09-17 15:55] LABS: Glucose - Point of Care 115 mg/dl (70-99)
[2024-09-17] MEDS: PRAVACHOL 40 MG PO (20:20)
[2024-09-17 21:50] LABS: Glucose - Point of Care 118 mg/dl (70-99)
[2024-09-17 23:00] VITALS: BP 153/88
[2024-09-18] MEDS: ZOFRAN 4 MG PO ×2 (02:10→11:33)
[2024-09-18 07:30] VITALS: BP 152/79
[2024-09-18 07:43] LABS: Glucose - Point of Care 126 mg/dl (70-99)
[2024-09-18] MEDS: ELIQUIS 5 MG PO (08:25)
[2024-09-18] MEDS: COREG 25 MG PO (08:26)
[2024-09-18] MEDS: GLUCOPHAGE 500 MG PO (08:26)
[2024-09-18] MEDS: PROTONIX 40 MG PO (08:26)
[2024-09-18] MEDS: SENOKOT-S 1 TABLET PO (08:26)
[2024-09-18] MEDS: PACERONE 200 MG PO (08:26)
[2024-09-18] MEDS: LASIX 40 MG PO (08:26)
[2024-09-18] MEDS: WELLBUTRIN SR (12 hour sustained release) 150 MG PO (08:26)
[2024-09-18] MEDS: DESENEX/MITRAZOL/ZEASORB 1 APPLIC TOPICAL (08:27)
[2024-09-18 09:17] VITALS: BP 152/79; PULSE 59; O2SAT 94
[2024-09-18] MEDS: KLONOPIN 1 MG PO (09:59)
--- NOTE | 2024-09-18 10:00 | CM ---
Addendum entered by Abril Car 09/18/24 12:47:
Patient scheduled for WC Van transport, 1:30 p.m. updated over phone. Jessica updated with transport time.
Plan; [facility], 1:30 WC Van transport, cost $145.
[facility]
Report: [phone]

Original Note:
CM received auth from [facility], [facility] approved #[id number], 09/18-09/23, next review 09/23 to . Update to Jessica in Admissions at [facility]. Phone call from patients , Andreia, asking CM to see patient when possible,
patient anxious about discharge. CM will continue to follow for all discharge planning needs.
Plan; [facility], will need transport
--- NOTE | 2024-09-18 11:12 | W.PN.HOSP.TC ---
Today's Communication/Plan
-
DC to SNF
Assessment / Plan
Assessment / Plan
#Weakness likely multifactorial due to deconditioning, dehydration, OHS/JENNI, versus polypharmacy
-Troponin negative over multiple draws, low suspicion for ACS
-Did not have any symptoms of chest pain here
-Echo with overall preserved left ventricular ejection fraction 55 to 60% with no significant valve disease.
-Discontinue Risperdal and bupropion.
-Patient is now medically stable for discharge, pending authorization and placement for SNF versus AIR
#Suspected OHS/JENNI
#Chronic hypercarbia
#Chronic hypoxic respiratory insufficiency due to morbid obesity
-Patient states he has required oxygen use recently at rehab and in hospital
-Due to his morbid obesity/habitus, OHS is very likely
-Will need formal PFTs and sleep study as outpatient
-Continue low-level oxygen, monitor clinically
#Prolonged Qtc
-bupropion and Risperdal DCed
-Started on Zofran for nausea
-QTc improved despite use of Zofran
#DM2
-A1C of 6.7
-ADA. Iss and accuchecks.
-Lifestyle modification and metformin 500mg BID.
-Diabetes education
#Morbid obesity due to excess calories
-BMI here 70.2 per today's vital signs
-Affects all aspects of care, contributing to OHS/JENNI and ambulatory issues
-Should be started on GLP-1 agonist or have consideration for bariatric procedure at discharge
-Discussed with spouse with plan for patient to be started on Wegovy as outpatient.
#Hypokalemia
-Continue to monitor and replete as needed
#paroxysmal atrial fibrillation
-cont amiodarone and eliquis and coreg
-follows at [facility] cardiology-Dr. Keith.
#Dehydration
-Was found on floor unable to get up, BUN/Cr > 20 on arrival
-S/p course of IV fluid
#Chronic leg swelling/lymphedema
-Cont lasix. Cr stable
-Compression therapy added
#Chronic toe wounds
-Nursing care, hygiene assistance
#Ambulatory dysfunction/failure to thrive
-Secondary to severe obesity
-PT/OT- Cm aware.
#Stage II right posterior ear pressure injury-poa
#Constipation
-bowel regimen.
#Mild leukopenia
-monitor for now
#Anxiety
-Home regimen held due to QTc prolongation
-Started low-dose Ativan as needed for significant anxiety
-Stated his anxiety gives him some nausea, ordered Zofran as needed
DVT prophylaxis: Eliquis
CODE STATUS: Full code
PT/OT-acute rehab. Initial authorization denied. Peer to peer also denied. Spouse to do family appeal-awaiting answer. Case management looking into options for SNF. Extremely difficult disposition
Discussed with patient spouse on 09/13.
Anticipated Discharge: Today
Subjective/Interval History
-
Date of Service: September 18, 2024
Seen and examined the bedside. No acute vents reported overnight. AFVSS on baseline oxygen
Denies any acute complaints, states his anxiety is better.
Authorization obtained for SNF today
Objective Data
-
Vital Signs:
Vital Signs
Temp Pulse Resp BP Pulse Ox
97.9 F 59 24 152/79 94
09/18/24 07:30 09/18/24 08:26 09/18/24 07:30 09/18/24 08:26 09/18/24 07:30
I&O
09/17/24 09/18/24 09/19/24
06:59 06:59 06:59
Intake Total 1200 / 1200 960 / 960
Output Total 700 / 700
Balance 500 / 500 960 / 960
Review of Systems
-
History Source: Patient
All other systems: Reviewed and negative
Physical Exam
-
General: Well Developed, No Apparent Distress, Comfortable and Morbidly Obese
HEENT: Normocephalic, Atraumatic, Moist Mucous Membranes and Anicteric
Respiratory: Clear to Auscultation and Non Labored Respirations
Cardiac: Regular Rhythm and S1/S2; Negative Murmur, Rub or Gallop
GI: Soft, Nontender, Nondistended and Normal Bowel Sounds
Musculoskeletal: No Clubbing, No Cyanosis and No Edema
Skin: Warm, Dry and Normal Turgor; Negative Rash
Neuro: AO x 3 and Nonfocal/Grossly Intact
Psych: Calm
[2024-09-18 12:10] LABS: Glucose - Point of Care 109 mg/dl (70-99)
[2024-09-18 13:13] VITALS: BP 149/75
--- NOTE | 2024-09-19 14:09 | W.DCSUMMARY ---
Discharge Summary
Discharge Data
Date of Admission: 09/07/24
Date of Discharge: 09/19/24
-
Pending Results: No
Hospital Course
53-year-old male with paroxysmal AF on Eliquis, chronic lower extremity lymphedema, chronic toe wounds, morbid obesity with BMI near 70 presented to the hospital with failure to thrive, ambulatory dysfunction in the context of his weight and chronic
hypoxemic and hypercapnic respiratory failure from presumed OHS/JENNI. Has been on 3 L oxygen for the past few months after being started during previous hospitalization.
Was evaluated by pulmonology in the hospital. Recommended outpatient follow-up with security system administrator for PFTs, formal sleep study, 6-minute walk test. Will continue on 3 L oxygen with SpO2 goal 88 to 94%.
Found to have new onset type 2 diabetes mellitus with hemoglobin A1c 6.7%. Was initially on sliding scale insulin with Accu-Cheks in the hospital. Started on metformin 500 mg twice daily at discharge. Should follow-up with PCP for ongoing glucose
monitoring. Will need diabetic education concerning home blood sugar testing
Found to have prolonged QTc of 532 ms. Improved following discontinuation of his home Risperdal and bupropion. Psychiatric state was stable off of these medications. Should have follow-up with PCP and consideration for psychiatry referral.
Discharge Plan
-
Patient Disposition: Acute Rehab Facility
Discharge Diagnosis/Procedures: Ambulatory dysfunction
Failure to thrive
Morbid obesity
OHS/JENNI
Type 2 diabetes mellitus (new diagnosis)
Condition: Fair
Diet: Low Fat, Low Cholesterol and Diabetic, Carb Controlled
Activity: As tolerated
Driving Restrictions: Not until seen by your Dr
Bathing Restrictions: None
Other Services: PT and OT
Referrals:
Sumi Bautista PA-C [Family Provider] - in less than 1 week
Fifi Barraza, DO [Active] - in two to three weeks (Follow-up with previous security system administrator at [facility]-if would like local care, then can follow-up with [facility])
Prescriptions:
New
metformin 500 mg Tablet
500 mg PO BID@0800,1700 30 Days Qty: 60 0RF
miconazole nitrate [Miconazorb AF] 2 % Powder
1 applic topical BID 7 Days Qty: 85 0RF
Continued
clonazepam 1 MG tablet
1 mg PO TID PRN (Reason: anxiety)
omeprazole 40 MG capsule,delayed release(DR/EC)
40 mg PO BID
furosemide 40 mg Tablet
40 mg PO DAILY
carvedilol 25 mg Tablet
25 mg PO BID
pravastatin 40 mg Tablet
40 mg PO HS
amiodarone 200 mg Tablet
200 mg PO DAILY
Eliquis 5 mg Tablet
5 mg PO BID
Discontinued
bupropion HCl 150 MG tablet sustained-release 12 hr
150 mg PO BID
risperidone 0.5 MG tablet
0.5 mg PO HS
Discharge Orders:
Discharge Patient (As Directed); Ordered 09/18/24
Ordered By: Mark Diaz
Discharge Date and Time
Discharge Date/Time: 09/18/24 15:23
Print Language: KHMER
== END 2024-09-18 15:23 | DRG 206 ==
LOC: 4 WEST ACU 23:50
PROVIDERS: Hospitalist; ADMITTING PHYSICIAN Internal Medicine; ATTENDING PHYSICIAN Internal Medicine; CONSULT PHYSICIAN Internal Medicine; EMERGENCY PHYSICIAN Emergency Medicine; FAMILY PHYSICIAN Physician Assistant
PROC: 5A09357 Assistance with Respiratory Ventilation, Less than 24 Consecutive Hours, Continuous Positive Airway Pressure (ICD-10-PCS; 2024-09-09)
PROC: 5A0935A Assistance with Respiratory Ventilation, Less than 24 Consecutive Hours, High Flow/Velocity Cannula (ICD-10-PCS; 2024-09-16)
DX: E66.2 Morbid (severe) obesity with alveolar hypoventilation (principal); Z68.45 Body mass index [BMI] 70 or greater, adult; J98.11 Atelectasis; J96.12 Chronic respiratory failure with hypercapnia; I48.0 Paroxysmal atrial fibrillation; E78.00 Pure hypercholesterolemia, unspecified; I10 Essential (primary) hypertension; I89.0 Lymphedema, not elsewhere classified; R62.7 Adult failure to thrive; E11.9 Type 2 diabetes mellitus without complications; F31.9 Bipolar disorder, unspecified; F41.9 Anxiety disorder, unspecified; L89.892 Pressure ulcer of other site, stage 2; K59.00 Constipation, unspecified; R53.1 Weakness; E86.0 Dehydration; R94.31 Abnormal electrocardiogram [ECG] [EKG]; E87.6 Hypokalemia; Z99.81 Dependence on supplemental oxygen; Z79.01 Long term (current) use of anticoagulants; Z79.899 Other long term (current) drug therapy; Z87.01 Personal history of pneumonia (recurrent)
CPT/HCPCS: 36600; 71045; 80048; 80061; 82805; 82962; 83036; 83735; 83880; 84484; 85025; 85027; 85610; 93005; 93306; 97116; 97162; 97166; 97530; 99285

== ENCOUNTER 2024-12-02 10:02 | Inpatient (IN) | payer OTHER, SELFPAY ==
[2024-12-01] VITALS (10 sets, daily range): BP systolic 93–130; BP diastolic 62–81
--- NOTE | 2024-12-01 13:20 | ED.GENMED ---
History of Present Illness
<ONEAL Akers - Last Filed: 12/01/24 18:01>
General
Chief Complaint: Weakness
Source: patient and ambulance crew
Exam Limitations: none
Time Seen by Provider: 12/01/24 13:14
Nursing documentation reviewed up to this point in time: agreed with
History of Present Illness
History of Present Illness:
Patient is a 54-year-old male with past medical history of morbid obesity A-fib on Eliquis chronic lower extremity lymphedema, diabetes presented to the ER for evaluation of weakness.
Pt was d/c'd from REHAB on Monday 2 d ago. reports pt is weak and unable to lift his legs. reports he is peeing himself because he is not able to get up and use the urinal.
Pt presents awake alert feels weak. Reports he is only drinking iced tea.
Pt denies any fever/chills. Patient denies any complaints of pain.
Past History
<ONEAL Akers - Last Filed: 12/01/24 18:01>
Past History
ED Past Medical History: Arrthythmia (Atrial fibrillation with), HTN, Hypercholesterolemia and Other (Esophageal strictures, morbid obesity, obstructive sleep apnea, bipolar disorder)
ED Past Surgical History: Other (sinus surgery age 21, tumor removed)
Social History
Personal:
Living: with family
Review of Systems
<ONEAL Akers - Last Filed: 12/01/24 18:01>
Review of Systems
Allergies reviewed?: Yes
Other source history: family
All Other Systems: ROS reviewed and negative except as documented in HPI and ROS
Constitutional: Reports fatigue
Respiratory: Reports no symptoms
Cardiac: Reports no symptoms
ABD/GI: Reports no symptoms
: Reports no symptoms
Musculoskeletal: Reports no symptoms
Skin: Reports no symptoms
Neurological: Reports no symptoms
Psychiatric: Reports no symptoms
Phy Exam
<ONEAL Akers - Last Filed: 12/01/24 18:01>
General Physical Exam
General Presentation: no apparent distress
General age: appears older than age
General Skin: warm and dry
General Habitus: obese
General Mental: alert
General Hydration: dry mucous membranes
Cardiovascular Exam
Cardiovascular Exam: bradycardia
Pulmonary Exam
Pulmonary Exam: no respiratory distress
Gastrointestinal Exam
Gastrointestinal Exam: non tender, soft and other (Patient has a red but appears to be fungal rash under abdominal pannus)
Neurological Exam
Neurological Exam: alert
Skin Exam
Skin Exam: normal color and warm/dry
Psychiatric Exam
Psychiatric Exam: normal mood/affect
Course
<ONEAL Akers - Last Filed: 12/01/24 18:01>
Orders/Labs/Results
Orders:
Orders
12/01/24 13:24
EKG [Electrocardiogram (*1)] Urgent
Reason for Study: Fatigue / Weakness
12/01/24 13:25
EKG- Treatment ONCE
12/01/24 13:31
Complete Blood Count/With Diff Urgent
Comprehensive Metabolic Panel Urgent
Free T4 Urgent
Lactic Acid Urgent
NT-proBNP Urgent
Comment: ADD ON
TSH Reflex To Free T4 Urgent
Comment: ADD ON
Blood Culture Stat
ARTIE Source: Blood/Venous
Specimen Description:
12/01/24 13:42
Straight cath- Treatment ONCE
Portable Chest Xray [CR Chest Portable - 1 View] Urgent
Comment:
Reason For Exam: weakness
Reason Study Needs to be Portable: Patient Unstable
12/01/24 13:44
0.9% Sodium Chloride 1000 ml [Nss] 1,000 ml IV BOLUS
12/01/24 13:52
COVID-19 Antigen Urgent
Source: Nasal Swab
UA Reflex to Culture [Urinalysis Reflex To Culture] Urgent
Date Specimen was Collected: 12/01/24
Time Specimen was Collected: 13:47
Urine Microscopic Reflex Cult Urgent
Influenza A+B Rapid Molecular Urgent
ARTIE Source: Nasal Swab
Specimen Description:
12/01/24 13:55
Blood Culture Stat
ARTIE Source: Blood/Venous
Specimen Description:
12/01/24 14:49
Add On- LAB Urgent
Tests Added?: tsh with reflexive t4
12/01/24 15:06
Add On- LAB Urgent
Tests Added?: Cardiac BNP
12/01/24 16:20
Admit/Transfer Patient As Directed
Co-Sign Provider:
Level of Care: Observation services
Assign to:: Medical/Surgical
Physician / Group: robert
Diagnosis: covid
PRN Pain Medication Management As Directed
May give lesser potent ordered pain med per pt: Yes
preference::
Protocol:: Medication orders for pain may be administered in a
manner that supports deferring to patient preference
when the pt is:
- Requesting an ordered lesser potent pain medication.
Least to most potent pain medications are defined
as: acetaminophen < NSAID < tramadol < opioids
(morphine, oxycodone, hydromorphone).
- Requesting a lesser dose of the same medication IF
ORDERED.
- Requesting a less intrusive route of administration
if both routes are prescribed by the provider (PO <
IV).
12/01/24 16:21
Code Status As Directed
Resuscitation Status: Full Code
Abnormal Lab Results
12/01/24 12/01/24
13:31 13:52
RBC 3.58 L 10^6/uL
(4.70-6.10)
Hgb 10.9 L g/dL
(13.0-18.0)
Hct 33.6 L %
(39.0-52.0)
MCHC 32.4 L g/dL
(33.0-37.0)
RDW 18.9 H %
(11.5-14.5)
Abs Immat Gran (auto) 0.1 H 10^3/uL
(0-0.05)
Absolute Lymphs (auto) 0.9 L 10^3/uL
(1.2-3.4)
Immature Gran % 1.0 H %
(0-0.5)
Lymphocytes % 15.6 L %
(20.5-51.1)
Chloride 97 L mmol/L
(98-107)
Carbon Dioxide 34 H mmol/L
(22-30)
BUN 21 H mg/dl
(9-20)
Creatinine 1.6 H mg/dL
(0.7-1.3)
Glucose 124 H mg/dl
(70-99)
Lactic Acid 2.2 H mmol/L
(0.7-2.0)
Calcium 8.0 L mg/dl
(8.4-10.2)
TSH (Reflex) 6.13 H uIU/ml
(0.47-4.68)
Urine Bacteria (Reflex) Few A
(Negative)
Urine Albumin (Reflex) 1+ A
(Neg - Trace)
SARS-CoV-2 Antigen Positive A
(Negative)
12/01/24 13:31
12/01/24 13:31
Vital Signs
Initial and Last Documented VS:
Initial Vital Signs
Pulse Ox
93
12/01/24 13:18
Last Documented Vital Signs
Temp Pulse Resp BP Pulse Ox
96.6 F L 57 19 119/72 96
12/01/24 13:47 12/01/24 15:30 12/01/24 15:30 12/01/24 15:04 12/01/24 15:30
<Sarmad Mae MD - Last Filed: 12/01/24 16:34>
Orders/Labs/Results
Orders:
Orders
12/01/24 13:24
EKG [Electrocardiogram (*1)] Urgent
Reason for Study: Fatigue / Weakness
12/01/24 13:25
EKG- Treatment ONCE
12/01/24 13:31
Complete Blood Count/With Diff Urgent
Comprehensive Metabolic Panel Urgent
Free T4 Urgent
Lactic Acid Urgent
NT-proBNP Urgent
Comment: ADD ON
TSH Reflex To Free T4 Urgent
Comment: ADD ON
Blood Culture Stat
ARTIE Source: Blood/Venous
Specimen Description:
12/01/24 13:42
Straight cath- Treatment ONCE
Portable Chest Xray [CR Chest Portable - 1 View] Urgent
Comment:
Reason For Exam: weakness
Reason Study Needs to be Portable: Patient Unstable
12/01/24 13:44
0.9% Sodium Chloride 1000 ml [Nss] 1,000 ml IV BOLUS
12/01/24 13:52
COVID-19 Antigen Urgent
Source: Nasal Swab
UA Reflex to Culture [Urinalysis Reflex To Culture] Urgent
Date Specimen was Collected: 12/01/24
Time Specimen was Collected: 13:47
Urine Microscopic Reflex Cult Urgent
Influenza A+B Rapid Molecular Urgent
ARTIE Source: Nasal Swab
Specimen Description:
12/01/24 13:55
Blood Culture Stat
ARTIE Source: Blood/Venous
Specimen Description:
12/01/24 14:49
Add On- LAB Urgent
Tests Added?: tsh with reflexive t4
12/01/24 15:06
Add On- LAB Urgent
Tests Added?: Cardiac BNP
12/01/24 16:20
Admit/Transfer Patient As Directed
Co-Sign Provider:
Level of Care: Observation services
Assign to:: Medical/Surgical
Physician / Group: robert
Diagnosis: covid
PRN Pain Medication Management As Directed
May give lesser potent ordered pain med per pt: Yes
preference::
Protocol:: Medication orders for pain may be administered in a
manner that supports deferring to patient preference
when the pt is:
- Requesting an ordered lesser potent pain medication.
Least to most potent pain medications are defined
as: acetaminophen < NSAID < tramadol < opioids
(morphine, oxycodone, hydromorphone).
- Requesting a lesser dose of the same medication IF
ORDERED.
- Requesting a less intrusive route of administration
if both routes are prescribed by the provider (PO <
IV).
12/01/24 16:21
Code Status As Directed
Resuscitation Status: Full Code
Abnormal Lab Results
12/01/24 12/01/24
13:31 13:52
RBC 3.58 L 10^6/uL
(4.70-6.10)
Hgb 10.9 L g/dL
(13.0-18.0)
Hct 33.6 L %
(39.0-52.0)
MCHC 32.4 L g/dL
(33.0-37.0)
RDW 18.9 H %
(11.5-14.5)
Abs Immat Gran (auto) 0.1 H 10^3/uL
(0-0.05)
Absolute Lymphs (auto) 0.9 L 10^3/uL
(1.2-3.4)
Immature Gran % 1.0 H %
(0-0.5)
Lymphocytes % 15.6 L %
(20.5-51.1)
Chloride 97 L mmol/L
(98-107)
Carbon Dioxide 34 H mmol/L
(22-30)
BUN 21 H mg/dl
(9-20)
Creatinine 1.6 H mg/dL
(0.7-1.3)
Glucose 124 H mg/dl
(70-99)
Lactic Acid 2.2 H mmol/L
(0.7-2.0)
Calcium 8.0 L mg/dl
(8.4-10.2)
TSH (Reflex) 6.13 H uIU/ml
(0.47-4.68)
Urine Bacteria (Reflex) Few A
(Negative)
Urine Albumin (Reflex) 1+ A
(Neg - Trace)
SARS-CoV-2 Antigen Positive A
(Negative)
12/01/24 13:31
12/01/24 13:31
Vital Signs
Initial and Last Documented VS:
Initial Vital Signs
Pulse Ox
93
12/01/24 13:18
Last Documented Vital Signs
Temp Pulse Resp BP Pulse Ox
96.6 F L 57 19 119/72 96
12/01/24 13:47 12/01/24 15:30 12/01/24 15:30 12/01/24 15:04 12/01/24 15:30
<ONEAL Akers - Last Filed: 12/01/24 18:01>
MDM/Problems Addressed
Differential Diagnosis Includes:
Not limited to dehydration, infection, anemia
MDM/Problems Addressed:
Patient is a 54-year-old male morbidly obese recently discharged from rehab presents for worsening weakness. Patient was found to be COVID-positive here. He has no complaints other than fatigue. His temp is 96.6 rectally his heart rate is in the
50s he has been bradycardic in the past this is baseline. His white count is normal at 5.8 his hemoglobin is 10.9 which is slightly lower than 11.15 September 2024; patient's BUN 21 creatinine elevated 1.6 patient was given fluids. Lactic minimally
elevated 2.2 calcium low at 8.0. Chest x-ray does show bilateral passed is likely from COVID cardiac BMP ordered. Urinalysis negative for infection. Patient will require admission for weakness will need case management for placement.
<ONEAL Akers - Last Filed: 12/01/24 18:01>
*Radiology
Radiology exam reviewed: radiology read reviewed
*Pulse Oximetry
Patient hypoxic: no
*Critical Care Note
Total Time (30-74mins, 75-104mins- exclusive of procedures): Not Applicable
ED Attending Note
<ONEAL Akers - Last Filed: 12/01/24 18:01>
-
Portions of this chart may have been created with voice recognition software.� Occasional wrong word or��sound alike� substitutions may have occurred due to the inherent limitations of voice recognition software.
<Sarmad Mae MD - Last Filed: 12/01/24 16:34>
ED Attending Note
Patient seen and examined by attending physician: Yes
I performed the substantive portion of visit, reviewed & personally made and approve the management plan that is documented in note by myself or AJIT.: Yes
ED Attending Note:
Patient presents with severe weakness over days. Recently discharged from rehabilitation. Significant medical history including A-fib a flutter hypertension esophageal strictures
Patient's major complaint is general weakness.
On exam patient is chronically ill-appearing. Older than stated age. Morbidly obese. Slight slurred speech which he said is normal for him. Dry tongue. Minimal tachypnea. No severe respiratory distress. Mild rhonchi in the bases. Mildly
bradycardic and regular. Abdomen obese elevated BMI soft nontender. Chronic lower extremity edema.
Impression hypothermia. Positive COVID. General weakness. Renal insufficiency. Admit for third care
Discharge Plan
Departure
Patient Disposition: Admit
Date of Disposition: 12/01/24
Time of Disposition: 15:40
Admit to: Telemetry
Admit to doctor: hospitalist
Presentation/result/management discussed w/ accepting MD/DO: Hospitalist
Patient with high blood pressure during this ER visit?: No
Condition: Fair
Covid-19: Not Applicable
Discharge Problem:
COVID-19, Weakness
Interventions
Interventions:
*Risk Screen - Suicide Last Done: 12/01/24 13:26
*General Assessment Last Done: 12/01/24 13:26
*Neglect/Abuse Screening Last Done: 12/01/24 13:29
ED- Fall Risk Assessment Last Done: 12/01/24 13:29
*ED COVID-19 Vaccine History Last Done: 12/01/24 13:26
ED- Cardiac Assessment Last Done: 12/01/24 13:29
ED- Neurological Assessment Last Done: 12/01/24 13:29
ED- Pulmonary Assessment Last Done: 12/01/24 13:29
[2024-12-01 13:43] LABS: % Basophils 0.9 % (0-2); % Eosinophils 1.4 % (0-6); % Lymphocytes 15.6 % (20.5-51.1); % Monocytes 5.9 % (1.7-9.3); % Neutrophils 75.2 % (42.2-75.2); Absolute Basophils 0.1 10^3/uL (0-0.2); Absolute Eosinophils 0.1 10^3/uL (0-0.7); Absolute Immature Granulocytes 0.1 10^3/uL (0-0.05); Absolute Lymphocytes 0.9 10^3/uL (1.2-3.4); Absolute Monocytes 0.3 10^3/uL (0.1-0.6); Absolute Neutrophils 4.4 10^3/uL (1.4-6.5); Hematocrit 33.6 % (39.0-52.0); Hemoglobin 10.9 g/dL (13.0-18.0); Mean Corp Hgb Conc. 32.4 g/dL (33.0-37.0); Mean Corpuscular Hgb 30.4 pg (27.0-31.0); Mean Corpuscular Volume 93.9 fL (80.0-94.0); Nucleated Red Blood Cells % 0 % (-); Platelet Count 217 10^3/uL (130-400); Red Blood Cell Count 3.58 10^6/uL (4.70-6.10); Red Cell Dist. Width 18.9 % (11.5-14.5); White Blood Cell Count 5.8 10^3/uL (4.8-10.8)
[2024-12-01 13:55] LABS: Lactic Acid 2.2 mmol/L (0.7-2.0)
[2024-12-01 13:56] LABS: ALT (SGPT) 35 U/L (0-50); AST (SGOT) 26 U/L (17-59); Albumin 3.6 g/dl (3.5-5.0); Alkaline Phosphatase 123 U/L (38-126); Blood Urea Nitrogen 21 mg/dl (9-20); Carbon Dioxide 34 mmol/L (22-30); Chloride 97 mmol/L (98-107); Estimated Creatinine Clearance 90 ml/min; Glucose 124 mg/dl (70-99); Potassium 3.7 mmol/L (3.5-5.1); Sodium 137 mmol/L (135-145); Total Bilirubin 0.7 mg/dl (0.2-1.3); Total Protein 6.3 g/dl (6.3-8.2); eGFR 50.57
[2024-12-01 14:06] LABS: Urine Albumin 1+ (Neg - Trace); Urine Bilirubin Negative (Negative); Urine Character Clear (Clear); Urine Color Yellow; Urine Glucose Negative (Negative); Urine Ketone Negative (Negative); Urine Leukocyte Negative (Negative); Urine Nitrite Negative (Negative); Urine Occult Blood Negative (Negative); Urine Specific Gravity 1.015 (<1.030); Urine Urobilinogen Negative (Neg - 1+)
[2024-12-01 14:16] LABS: Urine Bacteria Few (Negative); Urine Red Blood Cell 0-2 /HPF (0-2)
[2024-12-01 15:31] LABS: COVID-19 Antigen Positive (Negative)
[2024-12-01] MEDS: NSS 1000 IV ×2 (15:41→20:35)
--- NOTE | 2024-12-01 16:00 | PHANOTE ---
med rec note- patient coming from personal home, dennise bateman does not come up in google. left message for spouse to call back about what she meds she continue at home
[2024-12-01 16:09] LABS: NT-proBNP 224 pg/ml
[2024-12-01 16:31] LABS: TSH Reflex To Free T4 6.13 uIU/ml (0.47-4.68)
--- NOTE | 2024-12-01 16:39 | HPS.HSE ---
Family Physician
-
Family Physician: INTERVIEWE UNKNOWN - PT NOT
Chief Complaint
-
weakness
History of Present Illness
54-year-old male past medical history of paroxysmal atrial fibrillation on Eliquis, chronic lower extremity lymphedema, chronic toe wounds, obesity, chronic hypercarbia/hypoxemic respiratory insufficiency secondary to obesity, diabetes,
constipation, anxiety, presenting with weakness since yesterday. He was discharged from rehab 2 days ago. He is weak and unable to lift his legs. reports he is peeing on himself because he is unable to use the urinal. Denies fevers or
chills. He does not use oxygen normally.
He has some shortness of breath but denies cough. Denies chest pain. He had some diarrhea few days ago that has resolved.
Medical History
Past Medical History
Past Medical History: Reports Other (paroxysmal atrial fibrillation on Eliquis, chronic lower extremity lymphedema, chronic toe wounds, obesity, chronic hypercarbia/hypoxemic respiratory insufficiency secondary to obesity, diabetes, constipation,
anxiety,)
Past Surgical History: Reports None
Social History
Tobacco: Non-smoker
Alcohol: None
Drug: None
Family History
Family History: Not pertinent
Allergies / Home Medications
Allergies reflects when Allergies were last updated in [employer].
Home Medications with original date entered in [facility]
Allergy/Medication List:
Allergies
Allergy/AdvReac Type Severity Reaction Status Date / Time
No Known Allergies Allergy Verified 09/07/24 20:46
Home Medications
clonazepam 1 mg tablet 1 mg PO TID PRN anxiety 07/27/16
omeprazole 40 mg capsule,delayed release 40 mg PO BID Gastrointestinal Issue 07/27/16
amiodarone 200 mg tablet 200 mg PO DAILY Arrhythmia 09/07/24
apixaban 5 mg tablet (Eliquis) 5 mg PO BID Blood Clot Prevention/Tx 09/07/24
carvedilol 25 mg tablet 25 mg PO BID Heart Disease/Condition 09/07/24
furosemide 40 mg tablet 40 mg PO DAILY Fluid Retention/Swelling 09/07/24
pravastatin 40 mg tablet 40 mg PO HS High Cholesterol 09/07/24
metformin 500 mg tablet 500 mg PO BID@0800,1700 30 days #60 tabs 09/11/24
miconazole nitrate 2 % topical powder (Miconazorb AF) 1 applic topical BID Skin issues 1 week #85 grams 09/16/24
Review of Systems
-
History Source: Patient
A 12 point ROS was completed and negative except as noted: Yes
Constitutional: Reports No Symptoms
EENT: Reports No Symptoms
Respiratory: Reports No Symptoms
Cardiac: Reports No Symptoms
Abdomen/GI: Reports No Symptoms
: Reports No Symptoms
Musculoskeletal: Reports No Symptoms
Skin: Reports No Symptoms
Neurological: Reports No Symptoms
Endocrine: Reports No Symptoms
Hematologic/Lymphatic: Reports No Symptoms
Psych: Reports No Symptoms
Physical Exam
Vital Signs
Vital Signs
Temp Pulse Resp BP Pulse Ox
96.6 F L 57 19 119/72 96
12/01/24 13:47 12/01/24 15:30 12/01/24 15:30 12/01/24 15:04 12/01/24 15:30
Physical Exam
General: Well Developed, Well Nourished and No Apparent Distress
HEENT: NormoCephalic, Moist mucous membranes and Atraumatic
Respiratory: Clear
Cardiac: S1/S2 and Regular Rhythm; No Murmur or Rub
GI: Soft, Non Tender, Non Distended and Normal Bowel Sounds; No Organomegaly
Rectal: Deferred by Provider
Musculoskeletal: No Clubbing, No Cyanosis and No Edema
Skin: No Rash
Neuro: Nonfocal/grossly intact
Laboratory Results
-
12/01/24 13:31
12/01/24 13:31
Laboratory Results
Lactic Acid 2.2 mmol/L (0.7-2.0) H 12/01/24 13:31
Total Bilirubin 0.7 mg/dl (0.2-1.3) 12/01/24 13:31
AST 26 U/L (17-59) 12/01/24 13:31
ALT 35 U/L (0-50) 12/01/24 13:31
Alkaline Phosphatase 123 U/L (38-126) 12/01/24 13:31
Data Reviewed
-
Lab Data: Labs Reviewed by me
Old Records: Reviewed
Impression/Plan
-
IMPRESSION:
PLAN:
# COVID infection
-Urinalysis negative
-Chest x-ray shows groundglass opacities throughout both lungs consistent with COVID pneumonitis as well as dense opacity in the peripheral left lower lung secondary to pneumonia/atelectasis
-Currently on 2 L oxygen, unclear if hypoxemic
-Will start dexamethasone 6 mg given chest x-ray findings
-PT/OT
# JEANINE
-IV fluids
-hold Lasix
Paroxysmal atrial fibrillation
-Continue amiodarone
-Continue Coreg
-Continue Eliquis
Chronic lower extremity lymphedema
Chronic toe wounds
Obesity
Chronic hypercarbia/hypoxemic respiratory failure secondary to obesity
Type 2 diabetes
-Hold metformin
-Insulin sliding scale
Constipation
Anxiety
-Continue clonazepam
Chronic anemia
-Hemoglobin stable
Full code
DVT prophylaxis�Eliquis
Diabetic diet
[2024-12-01 17:00] LABS: Free T4 2.12 ng/dl (0.78-2.19)
--- NOTE | 2024-12-01 19:17 | PTCARENOTE ---
Pt received as admit from ED. AAOx3. SpO2 100% on 4L nasal cannula. VSS. MASD noted to pt groin, left lower abdominal folds, and bilateral breasts. Stage 1 pressure injury noted to pt sacrum. Respiratory precautions in place for + COVID. Pt resting
in bed, call hernández in reach.
[2024-12-01] MEDS: DECADRON 6 MG PO (20:37)
[2024-12-01 22:50] LABS: Glucose - Point of Care 111 mg/dl (70-99)
[2024-12-02 00:05] VITALS: BP 126/68
[2024-12-02 07:10] LABS: Glucose - Point of Care 143 mg/dl (70-99)
[2024-12-02] MEDS: NOVOLOG FLEXPEN-LOW RESISTANCE SC (07:31)
[2024-12-02 07:39] VITALS: BP 125/69
[2024-12-02 08:04] LABS: % Basophils 0.4 % (0-2); % Eosinophils 0.2 % (0-6); % Immature Granulocytes 0.9 % (0-0.5); % Lymphocytes 12.1 % (20.5-51.1); % Monocytes 3.1 % (1.7-9.3); % Neutrophils 83.3 % (42.2-75.2); Absolute Immature Granulocytes 0.1 10^3/uL (0-0.05); Absolute Lymphocytes 0.7 10^3/uL (1.2-3.4); Absolute Monocytes 0.2 10^3/uL (0.1-0.6); Absolute Neutrophils 4.6 10^3/uL (1.4-6.5); Hematocrit 30.4 % (39.0-52.0); Hemoglobin 10.2 g/dL (13.0-18.0); Mean Corp Hgb Conc. 33.6 g/dL (33.0-37.0); Mean Corpuscular Hgb 30.6 pg (27.0-31.0); Mean Corpuscular Volume 91.3 fL (80.0-94.0); Mean Platelet Volume 10.7 fL (7.4-10.4); Nucleated Red Blood Cells % 0 % (-); Platelet Count 192 10^3/uL (130-400); Red Blood Cell Count 3.33 10^6/uL (4.70-6.10); Red Cell Dist. Width 18.6 % (11.5-14.5); White Blood Cell Count 5.5 10^3/uL (4.8-10.8)
[2024-12-02 08:30] LABS: ALT (SGPT) 32 U/L (0-50); AST (SGOT) 24 U/L (17-59); Albumin 3.3 g/dl (3.5-5.0); Alkaline Phosphatase 117 U/L (38-126); Blood Urea Nitrogen 19 mg/dl (9-20); Carbon Dioxide 30 mmol/L (22-30); Chloride 99 mmol/L (98-107); Estimated Creatinine Clearance 111 ml/min; Glucose 149 mg/dl (70-99); Potassium 4.1 mmol/L (3.5-5.1); Sodium 136 mmol/L (135-145); Total Bilirubin 0.6 mg/dl (0.2-1.3); Total Protein 5.9 g/dl (6.3-8.2); eGFR > 60.00
[2024-12-02] MEDS: DECADRON 6 MG PO (09:18)
[2024-12-02] MEDS: DESENEX/MITRAZOL/ZEASORB 1 APPLIC TOPICAL ×2 (09:19→20:03)
[2024-12-02] MEDS: VEKLURY 250 MG IV (09:22)
[2024-12-02 11:15] LABS: Glucose - Point of Care 169 mg/dl (70-99)
[2024-12-02] MEDS: PACERONE 100 MG PO (11:40)
[2024-12-02] MEDS: ELIQUIS 5 MG PO ×2 (11:41→20:03)
[2024-12-02] MEDS: LEXAPRO 10 MG PO (11:41)
[2024-12-02] MEDS: KLONOPIN 1 MG PO ×2 (11:41→20:03)
[2024-12-02] MEDS: LASIX 40 MG PO (11:41)
[2024-12-02] MEDS: NOVOLOG FLEXPEN-LOW RESISTANCE 1 UNITS SC (12:02)
[2024-12-02] MEDS: TRIAMCINOLONE ACETONIDE 0.1% CREAM 1 APPLIC TOPICAL ×2 (12:05→20:04)
[2024-12-02 12:23] LABS: Procalcitonin 0.19 ng/ml (0.0-0.25)
--- NOTE | 2024-12-02 12:44 | W.PN.HOSP.TC ---
Today's Communication/Plan
-
Remdesivir, steroids
monitor O2
PT/OT
Assessment / Plan
Assessment / Plan
Assessment:
Acute COVID-19 infection
- CXR: Severe diffuse ground-glass opacity throughout both lungs mixed with increased vascular interstitial markings. Diagnostic possibilities are (1) acute interstitial and alveolar cardiogenic pulmonary edema, (2) bilateral pneumonia (more likely
viral than bacterial pneumonia), or (3) an inflammatory pneumonitis.
- with hypoxia on admission; started Remdesivir, day 1
- continue IV steroids
- procal normal - no indication for Abx
- monitor O2 needs
JEANINE
- holding Lasix
- IVF
- monitor BMP
Paroxysmal atrial fibrillation
- continue amiodarone
- continue Coreg
- continue Eliquis
Chronic lower extremity lymphedema
Chronic toe wounds
Obesity
Chronic hypercarbia/hypoxemic respiratory failure secondary to obesity
Type 2 diabetes
- hold metformin
- Insulin sliding scale
Constipation
Anxiety
- continue clonazepam
Chronic anemia
- hemoglobin stable
DVT ppx: Eliquis
Code: Full
Anticipated Discharge: 24 - 48 hours
Subjective/Interval History
-
Date of Service: December 02, 2024
denies any SOB or chest pain
Objective Data
-
Labs:
Laboratory Results
12/02/24
07:50
WBC 5.5
Hgb 10.2 L
Hct 30.4 L
Plt Count 192
Sodium 136
Potassium 4.1
Chloride 99
Carbon Dioxide 30
BUN 19
Creatinine 1.3
Glucose 149 H
Calcium 8.0 L
Total Bilirubin 0.6
AST 24
ALT 32
Alkaline Phosphatase 117
Vital Signs:
Vital Signs
Temp Pulse Resp BP Pulse Ox
97.5 F 60 18 125/69 97
12/02/24 07:39 12/02/24 07:39 12/02/24 07:39 12/02/24 07:39 12/02/24 08:12
I&O
12/01/24 12/02/24 12/03/24
06:59 06:59 06:59
Intake Total 480 / 480
Balance 480 / 480
Physical Exam
-
General: No Apparent Distress
HEENT: Normocephalic and Atraumatic
Respiratory: Crackles
Cardiac: Regular Rhythm and S1/S2
GI: Soft and Nontender
Neuro: AO x 3
Psych: Calm
Data Reviewed
-
Total Time Spent with Patient (in minutes): 42
Labs: Labs Reviewed by me
[2024-12-02] MEDS: NSS IV (12:52)
[2024-12-02 14:18] VITALS: BP 130/70; PULSE 70; O2SAT 88; O2SAT 90
[2024-12-02 15:33] VITALS: BP 129/69
--- NOTE | 2024-12-02 16:03 | CM ---
CM reviewed chart, patient Covid positive, call to patients room, no response, call to patients , Andreia, to complete initial assessment. Patient recently discharged from rehab, patient was at [facility], went to [facility], then
discharged to another SNF ([facility]?) was unsure of name. reports that patient would like to return home with services, reports patient is now on first floor of home, has a bed for downstairs. reports patients PCP through [facility], [facility].
CM spoke with patient, would like to go home with services, agreeable to referral to [facility]. Patient reports he has private care set up -Monday to assist with ADLS. TT to [facility] Liaison. Patient reports his insurance will be switched to [employer] on
12/07/24. CM will continue to follow for all discharge planning needs.
Plan; home with [facility] and private care services.
[2024-12-02 16:24] LABS: Glucose - Point of Care 220 mg/dl (70-99)
[2024-12-02] MEDS: NOVOLOG FLEXPEN-LOW RESISTANCE 2 UNITS SC (17:54)
[2024-12-02] MEDS: PROTONIX 40 MG PO (20:03)
[2024-12-02] MEDS: REMERON 15 MG PO (21:16)
[2024-12-02] MEDS: PRAVACHOL 40 MG PO (21:16)
[2024-12-02] MEDS: ABILIFY 5 MG PO (21:16)
[2024-12-02 21:20] LABS: Glucose - Point of Care 192 mg/dl (70-99)
[2024-12-02 22:56] VITALS: BP 127/69
[2024-12-03 07:15] VITALS: BP 126/68
[2024-12-03 07:24] LABS: % Basophils 0.1 % (0-2); % Immature Granulocytes 1.1 % (0-0.5); % Lymphocytes 10.3 % (20.5-51.1); % Monocytes 6.7 % (1.7-9.3); % Neutrophils 81.8 % (42.2-75.2); Absolute Immature Granulocytes 0.1 10^3/uL (0-0.05); Absolute Lymphocytes 0.7 10^3/uL (1.2-3.4); Absolute Monocytes 0.5 10^3/uL (0.1-0.6); Absolute Neutrophils 5.9 10^3/uL (1.4-6.5); Hematocrit 31.7 % (39.0-52.0); Hemoglobin 10.2 g/dL (13.0-18.0); Mean Corp Hgb Conc. 32.2 g/dL (33.0-37.0); Mean Corpuscular Hgb 30.7 pg (27.0-31.0); Mean Corpuscular Volume 95.5 fL (80.0-94.0); Mean Platelet Volume 10.4 fL (7.4-10.4); Nucleated Red Blood Cells % 0 % (-); Platelet Count 218 10^3/uL (130-400); Red Blood Cell Count 3.32 10^6/uL (4.70-6.10); Red Cell Dist. Width 18.8 % (11.5-14.5); White Blood Cell Count 7.2 10^3/uL (4.8-10.8)
[2024-12-03 07:36] LABS: Glucose - Point of Care 122 mg/dl (70-99)
[2024-12-03] MEDS: NOVOLOG FLEXPEN-LOW RESISTANCE SC ×2 (08:21→11:53)
[2024-12-03] MEDS: LASIX 40 MG PO (08:55)
[2024-12-03] MEDS: DECADRON 6 MG PO (08:56)
[2024-12-03] MEDS: LEXAPRO 10 MG PO (08:56)
[2024-12-03] MEDS: ELIQUIS 5 MG PO ×2 (08:56→19:47)
[2024-12-03] MEDS: PROTONIX 40 MG PO ×2 (08:56→19:47)
[2024-12-03] MEDS: PACERONE 100 MG PO (08:56)
[2024-12-03] MEDS: KLONOPIN 1 MG PO ×2 (08:56→19:47)
--- NOTE | 2024-12-03 08:56 | VNURNOTE ---
Chart reviewed. [facility] liaison spoke with patient. He stated he started with [facility] last Monday. He requested this author speak to his to double check. Reached out to Andreia who confirmed they started with [facility] and
would like to resume their services. SALOMON Rodriguez notified.
[2024-12-03] MEDS: DESENEX/MITRAZOL/ZEASORB 1 APPLIC TOPICAL ×2 (08:57→19:46)
[2024-12-03] MEDS: TRIAMCINOLONE ACETONIDE 0.1% CREAM 1 APPLIC TOPICAL ×2 (09:05→19:47)
--- NOTE | 2024-12-03 10:11 | W.PN.HOSP.TC ---
Addendum entered and electronically signed by Annabel Shi MD 12/03/24 12:53:
Patient requires a wheelchair due to ambulatory dysfunction. A walker and a cane both were trialed and failed.
Original Note:
Today's Communication/Plan
-
continue Remdesivir and steroids
wean O2 as able
Assessment / Plan
Assessment / Plan
Assessment:
Acute COVID-19 infection
- CXR: Severe diffuse ground-glass opacity throughout both lungs mixed with increased vascular interstitial markings. Diagnostic possibilities are (1) acute interstitial and alveolar cardiogenic pulmonary edema, (2) bilateral pneumonia (more likely
viral than bacterial pneumonia), or (3) an inflammatory pneumonitis.
- with hypoxia on admission; continue Remdesivir, day 2
- continue IV Decadron, day 11/18
- procal normal - no indication for Abx
- monitor O2 needs
JEANINE
- holding Lasix
- s/p IVF
- monitor BMP
Paroxysmal atrial fibrillation
- continue amiodarone
- continue Coreg
- continue Eliquis
Chronic lower extremity lymphedema
Chronic toe wounds
Obesity
Chronic hypercarbia/hypoxemic respiratory failure secondary to obesity
Type 2 diabetes
- hold metformin
- Insulin sliding scale
- A1c is 6.0%
Constipation
Anxiety
- continue clonazepam
Chronic anemia
- hemoglobin stable
DVT ppx: Eliquis
Code: Full
Anticipated Discharge: 24 - 48 hours
Subjective/Interval History
-
Date of Service: December 03, 2024
placed back on 2L (night-time in relation to not receiving CPAP due to active COVID, per hospital policy, confirmed by RN)
tolerating steroids/Remdesivir
Objective Data
-
Labs:
Laboratory Results
12/03/24 12/03/24
06:48 09:21
WBC 7.2
Hgb 10.2 L
Hct 31.7 L
Plt Count 218
Sodium Cancelled Pending
Potassium Cancelled Pending
Chloride Cancelled Pending
Carbon Dioxide Cancelled Pending
BUN Cancelled Pending
Creatinine Cancelled Pending
Glucose Cancelled Pending
Calcium Cancelled Pending
Total Bilirubin Cancelled Pending
AST Cancelled Pending
ALT Cancelled Pending
Alkaline Phosphatase Cancelled Pending
Vital Signs:
Vital Signs
Temp Pulse Resp BP Pulse Ox
97.8 F 63 20 126/68 94
12/03/24 07:15 12/03/24 07:15 12/03/24 07:15 12/03/24 08:56 12/03/24 07:15
I&O
12/02/24 12/03/24 12/04/24
06:59 06:59 06:59
Intake Total 480 / 480 960 / 960
Balance 480 / 480 960 / 960
Physical Exam
-
General: No Apparent Distress
HEENT: Normocephalic and Atraumatic
Respiratory: Negative Wheezes
Cardiac: Regular Rhythm and S1/S2
GI: Soft
Genito-urinary: No Costovertebral Tender
Musculoskeletal: No Edema
Neuro: AO x 3
Hematologic / Lymphatic: No Lymphadenopathy
Psych: Calm
Data Reviewed
-
Total Time Spent with Patient (in minutes): 42
Labs: Labs Reviewed by me
[2024-12-03 11:00] VITALS: BP 114/50
[2024-12-03 11:45] LABS: ALT (SGPT) 31 U/L (0-50); AST (SGOT) 24 U/L (17-59); Albumin 3.3 g/dl (3.5-5.0); Alkaline Phosphatase 101 U/L (38-126); Blood Urea Nitrogen 17 mg/dl (9-20); Calcium 8.2 mg/dl (8.4-10.2); Carbon Dioxide 33 mmol/L (22-30); Chloride 98 mmol/L (98-107); Estimated Creatinine Clearance 120 ml/min; Glucose 166 mg/dl (70-99); Potassium 4.1 mmol/L (3.5-5.1); Sodium 140 mmol/L (135-145); Total Bilirubin 0.6 mg/dl (0.2-1.3); Total Protein 5.9 g/dl (6.3-8.2); eGFR > 60.00
[2024-12-03 11:49] LABS: Glucose - Point of Care 120 mg/dl (70-99)
[2024-12-03] MEDS: VEKLURY 250 MG IV (12:10)
--- NOTE | 2024-12-03 13:44 | CM ---
CM received chart, reviewed with Hospitalist, patient requesting wheelchair upon discharge, clinical information faxed to [phone] [phone]. [facility], patient current with [facility], will send return of care
referral. Patient inquiring if grab bars can be ordered through DME- discussed not something ordered through DME company. CM will continue to follow for all discharge planning needs.
Plan; home with family, [facility], private caregivers, DME (wheelchair) [facility] [employer].
--- NOTE | 2024-12-03 14:30 | PTCARENOTE ---
attempt to wean patient to room air, Patient O2 de sat to 84% on RA, Patient placed on 1L NC, O2 sat 94% will continue to monitor.
[2024-12-03 15:00] VITALS: BP 130/60
[2024-12-03 16:32] LABS: Glucose - Point of Care 151 mg/dl (70-99)
[2024-12-03] MEDS: NOVOLOG FLEXPEN-LOW RESISTANCE 1 UNITS SC (17:50)
--- NOTE | 2024-12-03 20:00 | PTCARENOTE ---
RN and tech in pt room while doing med pass. Pt offered and provided HS mouth care while in room. Pt asked if anything else was needed while staff was in room with PPE. Pt stated, 'I will call if anything is needed.' RN educated pt that the only
reason asked was to be able to better cluster care while already in room to prevent the spread of COVID. Pt stated, 'Well this is what you are paid for.' Pt educated further that assistance will be provided if needed at any time. Pt stated, 'Well
you still have to come in whenever I need you to anyway- I want to talk to someone higher up now.' Charge nurse called for pt, therapeutic communication and education provided, pt apologized saying it was miscommunication. Pt states all needs met,
pt calm.
[2024-12-03 21:49] LABS: Glucose - Point of Care 126 mg/dl (70-99)
[2024-12-03] MEDS: PRAVACHOL 40 MG PO (22:11)
[2024-12-03] MEDS: ABILIFY 5 MG PO (22:11)
[2024-12-03] MEDS: REMERON 15 MG PO (22:11)
[2024-12-03 23:00] VITALS: BP 132/57
[2024-12-04 06:37] LABS: % Basophils 0.2 % (0-2); % Immature Granulocytes 1.3 % (0-0.5); % Lymphocytes 12.1 % (20.5-51.1); % Monocytes 7.2 % (1.7-9.3); % Neutrophils 79.2 % (42.2-75.2); Absolute Immature Granulocytes 0.1 10^3/uL (0-0.05); Absolute Lymphocytes 0.8 10^3/uL (1.2-3.4); Absolute Monocytes 0.5 10^3/uL (0.1-0.6); Hematocrit 28.4 % (39.0-52.0); Hemoglobin 9.5 g/dL (13.0-18.0); Mean Corp Hgb Conc. 33.5 g/dL (33.0-37.0); Mean Corpuscular Hgb 30.7 pg (27.0-31.0); Mean Corpuscular Volume 91.9 fL (80.0-94.0); Mean Platelet Volume 10.6 fL (7.4-10.4); Nucleated Red Blood Cells % 0 % (-); Platelet Count 211 10^3/uL (130-400); Red Blood Cell Count 3.09 10^6/uL (4.70-6.10); Red Cell Dist. Width 18.9 % (11.5-14.5); White Blood Cell Count 6.3 10^3/uL (4.8-10.8)
[2024-12-04 07:05] LABS: ALT (SGPT) 33 U/L (0-50); AST (SGOT) 23 U/L (17-59); Alkaline Phosphatase 97 U/L (38-126); Blood Urea Nitrogen 20 mg/dl (9-20); Calcium 8.2 mg/dl (8.4-10.2); Carbon Dioxide 36 mmol/L (22-30); Chloride 100 mmol/L (98-107); Estimated Creatinine Clearance > 125 ml/min; Glucose 114 mg/dl (70-99); Potassium 3.9 mmol/L (3.5-5.1); Sodium 141 mmol/L (135-145); Total Bilirubin 0.4 mg/dl (0.2-1.3); Total Protein 5.5 g/dl (6.3-8.2); eGFR > 60.00
[2024-12-04 07:30] VITALS: BP 128/63
[2024-12-04 07:47] VITALS: BP 128/63
[2024-12-04 07:49] LABS: Glucose - Point of Care 121 mg/dl (70-99)
[2024-12-04] MEDS: NOVOLOG FLEXPEN-LOW RESISTANCE SC ×2 (07:54→12:10)
[2024-12-04] MEDS: PACERONE 100 MG PO (09:06)
[2024-12-04] MEDS: ELIQUIS 5 MG PO (09:06)
[2024-12-04] MEDS: LEXAPRO 10 MG PO (09:06)
[2024-12-04] MEDS: KLONOPIN 1 MG PO (09:06)
[2024-12-04] MEDS: PROTONIX 40 MG PO (09:06)
[2024-12-04] MEDS: LASIX 40 MG PO (09:07)
[2024-12-04] MEDS: DECADRON 6 MG PO (09:08)
[2024-12-04] MEDS: TRIAMCINOLONE ACETONIDE 0.1% CREAM 1 APPLIC TOPICAL (09:20)
[2024-12-04 11:21] VITALS: O2SAT 95
[2024-12-04 12:10] LABS: Glucose - Point of Care 140 mg/dl (70-99)
[2024-12-04] MEDS: VEKLURY 250 MG IV (12:13)
[2024-12-04] MEDS: DESENEX/MITRAZOL/ZEASORB 1 APPLIC TOPICAL (12:16)
--- NOTE | 2024-12-04 14:04 | W.PN.HOSP.TC ---
Addendum entered and electronically signed by Annabel Shi MD 12/04/24 14:43:
patient requires wheelchair within the home to complete their daily activities, patient can self propel from wheelchair in home
Original Note:
Today's Communication/Plan
-
dc home/VN
Assessment / Plan
Assessment / Plan
Assessment:
Acute COVID-19 infection
- CXR: Severe diffuse ground-glass opacity throughout both lungs mixed with increased vascular interstitial markings. Diagnostic possibilities are (1) acute interstitial and alveolar cardiogenic pulmonary edema, (2) bilateral pneumonia (more likely
viral than bacterial pneumonia), or (3) an inflammatory pneumonitis.
- with hypoxia on admission; completed 3 days Remdesivir
- continue IV Decadron, day 01/16 - finish at home
- procal normal - no indication for Abx
JEANINE
- resume Lasix at dc
- s/p IVF
- monitor BMP
Paroxysmal atrial fibrillation
- continue amiodarone
- continue Coreg
- continue Eliquis
Chronic lower extremity lymphedema
Chronic toe wounds
Obesity
Chronic hypercarbia/hypoxemic respiratory failure secondary to obesity
Type 2 diabetes
- hold metformin
- Insulin sliding scale
- A1c is 6.0%
Constipation
Anxiety
- continue clonazepam
Chronic anemia
- hemoglobin stable
DVT ppx: Eliquis
Code: Full
More than 30 minutes spent in discharge including
Final examination of the patient
Summarizing hospital stay
Instructions for continuing care to all relevant caregivers
Preparation of discharge records, prescriptions, and referral forms
Total time spent (in minutes): 41
Anticipated Discharge: Today
Subjective/Interval History
-
Date of Service: December 04, 2024
no complaints
on stable room air >93% with rest and exertion with PT
Objective Data
-
Labs:
Laboratory Results
12/04/24
05:04
WBC 6.3
Hgb 9.5 L
Hct 28.4 L
Plt Count 211
Sodium 141
Potassium 3.9
Chloride 100
Carbon Dioxide 36 H
BUN 20
Creatinine 1.1
Glucose 114 H
Calcium 8.2 L
Total Bilirubin 0.4
AST 23
ALT 33
Alkaline Phosphatase 97
Vital Signs:
Vital Signs
Temp Pulse Resp BP Pulse Ox
98.8 F 76 24 128/63 95
12/04/24 07:47 12/04/24 07:47 12/04/24 07:47 12/04/24 09:06 12/04/24 07:47
I&O
12/03/24 12/04/24 12/05/24
06:59 06:59 06:59
Intake Total 960 / 960 960 / 960
Balance 960 / 960 960 / 960
Physical Exam
-
General: No Apparent Distress and Morbidly Obese
HEENT: Normocephalic and Atraumatic
Respiratory: Negative Wheezes
Cardiac: Regular Rhythm and S1/S2
GI: Soft and Nontender
Neuro: AO x 3
Hematologic / Lymphatic: No Lymphadenopathy
Psych: Calm
Data Reviewed
-
Total Time Spent with Patient (in minutes): 41
Labs: Labs Reviewed by me
--- NOTE | 2024-12-04 14:15 | W.DS.TRANS ---
DC Summary - Test Lead Application Testing
-
Discharge Instructions:
Discharge Diagnosis/Procedures COVID-19 pneumonia with resolved hypoxia
Diet Diabetic, Carb Controlled
Activity As tolerated
Bathing Restrictions None
Other Services VN
Instructions:
Stand-Alone Forms:
Changes to Home Medications: No
Discharge Medications:
DC Medications w/original date entered in [facility]
omeprazole 40 mg capsule,delayed release 40 mg PO BID Gastrointestinal Issue 07/27/16
apixaban 5 mg tablet (Eliquis) 5 mg PO BID Blood Clot Prevention/Tx 09/07/24
furosemide 40 mg tablet 40 mg PO DAILY Fluid Retention/Swelling 09/07/24
pravastatin 40 mg tablet 40 mg PO HS High Cholesterol 09/07/24
amiodarone 100 mg tablet 100 mg PO DAILY Arrhythmia 12/02/24
aripiprazole 5 mg tablet 5 mg PO HS Depression 12/02/24
clonazepam 1 mg tablet 1 mg PO Q12H anxiety 12/02/24
escitalopram oxalate 10 mg tablet 10 mg PO DAILY depression/anxiety 12/02/24
metformin 500 mg tablet 500 mg PO BID@0800,1700 Diabetes 12/02/24
miconazole nitrate 2 % topical powder (Miconazorb AF) 1 applic topical BID abdominal folds 12/02/24
mirtazapine 15 mg tablet 15 mg PO HS depression/sleep 12/02/24
triamcinolone acetonide 0.1 % topical cream 1 applic topical BID to face 12/02/24
dexamethasone 2 mg tablet 6 mg (3 x 2 mg) PO DAILY #18 tabs 12/04/24
Home Medication Changes
Pending Results: No
Total time spent discharging patient (in min): 41
--- NOTE | 2024-12-04 15:15 | CM ---
CM reviewed chart, per [facility], do not supply bariatric wheelchairs, spoke with [facility], have bariatric wheelchairs, confirmed deliver to patients address ([place]). CM spoke with patients , discussed plan for
discharge today, inquiring about hospital bed as patient has a bed for downstairs but it is not assembled yet. CM left for [facility] to determine cost of renting hospital bed. Phone call to patient, reports he will hire metalsmith helper to assemble bed,
will provide transportation home. CM will continue to follow for all discharge planning needs.
Plan; home with , caregiver, Terell COKER, [facility] for wheelchair
Terell COKER
[2024-12-04 15:27] VITALS: BP 136/87
--- NOTE | 2024-12-04 17:09 | PTCARENOTE ---
Patient safely transferred to wheel chair and into car. patient discharged
== END 2024-12-04 17:13 | disposition home health service (06) | DRG 177 ==
LOC: 4 WEST ACU 10:02
PROVIDERS: Nurse Practitioner; ADMITTING PHYSICIAN Hospitalist; ATTENDING PHYSICIAN Internal Medicine; EMERGENCY PHYSICIAN Emergency Medicine
PROC: XW033E5 Introduction of Remdesivir Anti-infective into Peripheral Vein, Percutaneous Approach, New Technology Group 5 (ICD-10-PCS; 2024-12-02)
DX: U07.1 COVID-19 (principal); J12.82 Pneumonia due to coronavirus disease 2019; Z68.44 Body mass index [BMI] 60.0-69.9, adult; J96.12 Chronic respiratory failure with hypercapnia; J96.11 Chronic respiratory failure with hypoxia; N17.9 Acute kidney failure, unspecified; I48.0 Paroxysmal atrial fibrillation; I89.0 Lymphedema, not elsewhere classified; E66.01 Morbid (severe) obesity due to excess calories; D64.9 Anemia, unspecified; E11.9 Type 2 diabetes mellitus without complications; E78.00 Pure hypercholesterolemia, unspecified; F41.9 Anxiety disorder, unspecified; G47.33 Obstructive sleep apnea (adult) (pediatric); I10 Essential (primary) hypertension; K59.00 Constipation, unspecified; Z79.01 Long term (current) use of anticoagulants; Z79.84 Long term (current) use of oral hypoglycemic drugs; Z79.899 Other long term (current) drug therapy
CPT/HCPCS: 51701; 71045; 80053; 81003; 81015; 82962; 83036; 83605; 83880; 84145; 84439; 84443; 85025; 87040; 87502; 87811; 93005; 96360; 97163; 97167; 97530; 99285; J0248

== ENCOUNTER 2024-12-08 08:29 | Inpatient (IN) | payer OTHER, SELFPAY ==
[2024-12-06] VITALS (10 sets, daily range): BP systolic 99–128; BP diastolic 52–88; BMI 64.7
--- NOTE | 2024-12-06 14:45 | EDRN ---
Pt placed on oxyen at 2lpm via NC for POX 90% on RA.
--- NOTE | 2024-12-06 15:29 | EDRN ---
IV access not fully threaded and would not flush or aspirate blood. No other veins seen or felt. IV VAT RN called for IV access and bloods.
--- NOTE | 2024-12-06 16:23 | EDRN ---
IV VAT RN was able to obtain IV access in L hand at this time.
[2024-12-06 16:24] LABS: % Basophils 0.2 % (0-2); % Eosinophils 1.4 % (0-6); % Immature Granulocytes 1.2 % (0-0.5); % Lymphocytes 20.8 % (20.5-51.1); % Neutrophils 67.4 % (42.2-75.2); Absolute Eosinophils 0.1 10^3/uL (0-0.7); Absolute Immature Granulocytes 0.1 10^3/uL (0-0.05); Absolute Lymphocytes 1.2 10^3/uL (1.2-3.4); Absolute Monocytes 0.5 10^3/uL (0.1-0.6); Hematocrit 29.1 % (39.0-52.0); Hemoglobin 9.6 g/dL (13.0-18.0); Mean Corpuscular Hgb 30.5 pg (27.0-31.0); Mean Corpuscular Volume 92.4 fL (80.0-94.0); Mean Platelet Volume 9.9 fL (7.4-10.4); Nucleated Red Blood Cells % 0 % (-); Platelet Count 216 10^3/uL (130-400); Red Blood Cell Count 3.15 10^6/uL (4.70-6.10); Red Cell Dist. Width 19.9 % (11.5-14.5); White Blood Cell Count 5.9 10^3/uL (4.8-10.8)
--- NOTE | 2024-12-06 16:30 | ED.GENMED ---
History of Present Illness
General
Chief Complaint: Fall
Source: patient and records
Exam Limitations: none
Time Seen by Provider: 12/06/24 15:30
History of Present Illness
History of Present Illness:
54-year-old male recently admitted with COVID, he has PAF he is on amiodarone and Eliquis, morbid obesity slipped and fell, could not get up, pulse ox was 82% on room air not on home oxygen, he tells me is hungry but has no complaints
Past History
Past History
ED Past Medical History: Arrthythmia (Atrial fibrillation with), HTN, Hypercholesterolemia and Other (Esophageal strictures, morbid obesity, obstructive sleep apnea, bipolar disorder)
ED Past Surgical History: Other (sinus surgery age 21, tumor removed)
Social History
Tobacco: Non-smoker
Alcohol: None
Drug: None
Personal:
Living: with family
Employment: Not employed
Phy Exam
Physical Exam
Physical Exam:
Physical Exam
General: Obese 54-year-old male somnolent but
Neck: No tongue bite
Heart: s1/s2 regular rate and rhythm, no murmur. equal radial pulses.
Lungs: Bibasilar crackles
Abdomen: Nontender
Neuro: alert and oriented. no focal neurological deficits
Skin: no rash
Psychiatric: well kept. interactive and cooperative
Extremities: Edema is. Present
Course
Orders/Labs/Results
Orders:
Orders
12/06/24 15:19
Electrocardiogram (*1) Urgent
Reason for Study: Chest Pain
Cardiac Monitoring- Treatment ONCE
EKG- Treatment ONCE
12/06/24 15:44
CT Head W/o Iv Contrast Urgent
Comment:
Reason For Exam: fall
12/06/24 15:45
CT Cervical Spine W/o Iv Contr Urgent
Comment:
Reason For Exam: fall
CT Chest PE Study Urgent
Comment:
Reason For Exam: sob
12/06/24 16:17
Basic Metabolic Panel Urgent
Complete Blood Count/With Diff Urgent
NT-proBNP Urgent
Troponin I Urgent
12/06/24 16:57
CR Chest Portable - 1 View Urgent
Comment:
Reason For Exam: sob
Reason Study Needs to be Portable: Unable to Transport
12/06/24 17:41
ABG [Arterial Blood Gas] Urgent
%Oxygen/Room Air: 6
12/06/24 20:03
Furosemide [Lasix] 60 mg IV NOW STA
Abnormal Lab Results
12/06/24 12/06/24
16:17 17:41
RBC 3.15 L 10^6/uL
(4.70-6.10)
Hgb 9.6 L g/dL
(13.0-18.0)
Hct 29.1 L %
(39.0-52.0)
RDW 19.9 H %
(11.5-14.5)
Abs Immat Gran (auto) 0.1 H 10^3/uL
(0-0.05)
Immature Gran % 1.2 H %
(0-0.5)
pCO2 52 H mmHg
(35-48)
HCO3 32.2 H mmol/L
(21-28)
Carbon Dioxide 31 H mmol/L
(22-30)
BUN 27 H mg/dl
(9-20)
Glucose 113 H mg/dl
(70-99)
Calcium 8.0 L mg/dl
(8.4-10.2)
12/06/24 16:17
12/06/24 16:17
Vital Signs
Initial and Last Documented VS:
Initial Vital Signs
Temp Pulse Resp BP Pulse Ox
97.5 F 62 22 103/81 90
12/06/24 14:37 12/06/24 14:37 12/06/24 14:37 12/06/24 14:37 12/06/24 14:37
Last Documented Vital Signs
Temp Pulse Resp BP Pulse Ox
97.5 F 62 22 115/52 98
12/06/24 14:37 12/06/24 19:45 12/06/24 19:45 12/06/24 19:13 12/06/24 19:45
MDM/Problems Addressed
Differential Diagnosis Includes:
Deconditioning worsening COVID-pneumonia pneumonitis PE heart failure occult head or neck trauma
MDM/Problems Addressed:
Near syncope syncope hypoxia
Chronic conditions affecting care:
Morbid obesity A-fib
Acute Exacerbation and/or Progression of Chronic Illness:
Obesity A-fib
*Critical Care Note
Total Time (30-74mins, 75-104mins- exclusive of procedures): 14
Update Note
Update Note:
6 PM multiple practitioners unable to place significant sized IV to get a CT of the chest he is on anticoagulation so PE is less likely albeit not impossible the meantime we will get CT of the head cervical spine, chest x-ray
8 PM chest x-ray report noted proBNP noted CT of the head and cervical spine noted we will start diuretic
ED Attending Note
-
Portions of this chart may have been created with voice recognition software.� Occasional wrong word or��sound alike� substitutions may have occurred due to the inherent limitations of voice recognition software.
Discharge Plan
Departure
Patient Disposition: Admit
Date of Disposition: 12/06/24
Time of Disposition: 20:06
Admit to: Telemetry
Presentation/result/management discussed w/ accepting MD/DO: Hospitalist
Patient with high blood pressure during this ER visit?: No
Condition: Fair
Covid-19: Not Applicable
Discharge Problem:
Morbid obesity, Adult failure to thrive, Ambulatory dysfunction, Morbid (severe) obesity with alveolar hypoventilation, Weakness, Body mass index [BMI] 70 or greater, adult, Obstructive sleep apnea (adult) (pediatric), Chronic respiratory failure
with hypercapnia, Bipolar affective disorder
Prescriptions:
No Action
omeprazole 40 MG capsule,delayed release(DR/EC)
40 mg PO BID
furosemide 40 mg Tablet
40 mg PO DAILY
pravastatin 40 mg Tablet
40 mg PO HS
Eliquis 5 mg Tablet
5 mg PO BID
clonazepam 1 mg tablet
1 mg PO Q12H
triamcinolone acetonide 0.1 % cream
1 applic TOPICAL BID
mirtazapine 15 mg tablet
15 mg PO HS
escitalopram oxalate 10 mg tablet
10 mg PO DAILY
aripiprazole 5 mg tablet
5 mg PO HS
amiodarone 100 mg tablet
100 mg PO DAILY
metformin 500 mg tablet
500 mg PO BID@0800,1700
miconazole nitrate [Miconazorb AF] 2 % powder
1 applic topical BID
dexamethasone 2 mg tablet
6 mg PO DAILY Qty: 18 0RF
Rx Instructions:
next dose 12/05
Referrals:
UNKNOWN - PT DOES,NOT KNOW [Family Provider] -
Interventions
Interventions:
*Risk Screen - Suicide Last Done: 12/06/24 15:16
*General Assessment Last Done: 12/06/24 14:37
*Neglect/Abuse Screening Last Done: 12/06/24 15:16
ED- Fall Risk Assessment Last Done: 12/06/24 15:50
*ED COVID-19 Vaccine History Last Done: 12/06/24 15:16
ED- Cardiac Assessment Last Done: 12/06/24 19:53
ED-Musculoskeletal Assessment Last Done: 12/06/24 15:50
ED- Neurological Assessment Last Done: 12/06/24 15:50
ED- Pulmonary Assessment Last Done: 12/06/24 19:53
ED-Skin Assessment Last Done: 12/06/24 15:50
Discharge Date and Time
Print Language: ICELANDIC
[2024-12-06 16:40] LABS: Blood Urea Nitrogen 27 mg/dl (9-20); Estimated Creatinine Clearance 120 ml/min; Glucose 113 mg/dl (70-99); Sodium 140 mmol/L (135-145); eGFR > 60.00
[2024-12-06 16:41] LABS: Carbon Dioxide 31 mmol/L (22-30); Chloride 102 mmol/L (98-107)
[2024-12-06 16:49] LABS: NT-proBNP 1020 pg/ml; Troponin I < 0.012 ng/ml
--- NOTE | 2024-12-06 17:07 | EDRN ---
Respiratory was TT'd about ABG that was ordered.
[2024-12-06 17:54] LABS: B.E. 6.4 mmol/L; HCO3 32.2 mmol/L (21-28); O2 Saturation % 97.6 % (94-98); PCO2 52 mmHg (35-48); PO2 83 mmHg (83-108)
--- NOTE | 2024-12-06 18:19 | EDRN ---
Portable CXR done at stretcher side at this time. Pt was completely changed as entire bed was totally saturated w/ urine including huge puddle on the floor just prior to radiology techs in room for xray.
--- NOTE | 2024-12-06 20:31 | HPS.HSE ---
Family Physician
-
Family Physician: NOT KNOW UNKNOWN - PT DOES
Chief Complaint
-
Fall
History of Present Illness
This is a 54-year-old with past medical history of congestive heart failure, JENNI on CPAP, morbid obesity, diabetes, atrial fibrillation on amiodarone and anticoagulated with Eliquis who was recently admitted to the hospital for COVID-19 infection
with hypoxia treated with remdesivir and steroids and discharged on December 04 presents to the emergency department following a fall and found to be hypoxic in the emergency department.
Patient reports that he felt well on arrival at home denies feeling short of breath. Denies having any chest pain. He was continuing with his steroid medications. He stated that prior to coming to the emergency department here he was
uncomfortable laying on bed and tried to roll to his side unfortunately he rolled over and fell to the floor. He did not strike his head. He did use his hands to brace himself but based on his weight he could not really brace himself. He had no
acute injury but was unable to get up. EMS was called and they found him to be slightly hypoxic but otherwise stable and was transferred to the emergency department. Family felt he was weak.
Patient denies any ongoing cough. He denies orthopnea or PND. He denies any palpitations.
In the emergency department he was initially found to be hypoxic to 85% on room air. Is currently satting 97% on 2 L. Blood pressure was stable at 115/52, pulse 62 and afebrile at 97.5. Troponin equals 0.012 with a BNP of 1000. Blood gas showed
a pH of 7.4, pCO2 of 52 with a bicarb of 32. CBC was unchanged from prior. Electrolytes BUN and creatinine were also unchanged from prior.
CT of the head was negative for any bleed or acute intracranial process. CT of the chest with PE protocol was negative for PE. There was no acute infiltrate. It only showed cardiomegaly.
Medical History
Past Medical History
Past Medical History: Reports Other (paroxysmal atrial fibrillation on Eliquis, chronic lower extremity lymphedema, chronic toe wounds, obesity, chronic hypercarbia/hypoxemic respiratory insufficiency secondary to obesity, diabetes, constipation,
anxiety,)
Past Surgical History: Reports None
Social History
Tobacco: Non-smoker
Alcohol: None
Drug: None
Family History
Family History: Not pertinent
Allergies / Home Medications
Allergies reflects when Allergies were last updated in [facility].
Home Medications with original date entered in [facility]
Allergy/Medication List:
Allergies
Allergy/AdvReac Type Severity Reaction Status Date / Time
No Known Allergies Allergy Verified 12/06/24 14:36
Home Medications
omeprazole 40 mg capsule,delayed release 40 mg PO BID Gastrointestinal Issue 07/27/16
apixaban 5 mg tablet (Eliquis) 5 mg PO BID Blood Clot Prevention/Tx 09/07/24
furosemide 40 mg tablet 40 mg PO DAILY Fluid Retention/Swelling 09/07/24
pravastatin 40 mg tablet 40 mg PO HS High Cholesterol 09/07/24
amiodarone 100 mg tablet 100 mg PO DAILY Arrhythmia 12/02/24
aripiprazole 5 mg tablet 5 mg PO HS Depression 12/02/24
clonazepam 1 mg tablet 1 mg PO Q12H anxiety 12/02/24
escitalopram oxalate 10 mg tablet 10 mg PO DAILY depression/anxiety 12/02/24
metformin 500 mg tablet 500 mg PO BID@0800,1700 Diabetes 12/02/24
miconazole nitrate 2 % topical powder (Miconazorb AF) 1 applic topical BID abdominal folds 12/02/24
mirtazapine 15 mg tablet 15 mg PO HS depression/sleep 12/02/24
triamcinolone acetonide 0.1 % topical cream 1 applic topical BID to face 12/02/24
dexamethasone 2 mg tablet 6 mg (3 x 2 mg) PO DAILY #18 tabs 12/04/24
Review of Systems
-
History Source: Patient
Constitutional: Reports No Symptoms
EENT: Reports No Symptoms
Respiratory: Reports No Symptoms
Cardiac: Reports No Symptoms
Abdomen/GI: Reports No Symptoms
: Reports No Symptoms
Musculoskeletal: Reports No Symptoms
Skin: Reports No Symptoms
Neurological: Reports No Symptoms
Endocrine: Reports No Symptoms
Hematologic/Lymphatic: Reports No Symptoms
Psych: Reports No Symptoms
Physical Exam
Vital Signs
Vital Signs
Temp Pulse Resp BP Pulse Ox
97.5 F 62 22 115/52 98
12/06/24 14:37 12/06/24 19:45 12/06/24 19:45 12/06/24 19:13 12/06/24 19:45
Physical Exam
General: Well Developed, Well Nourished, No Apparent Distress and Comfortable
HEENT: NormoCephalic, Anicteric, Moist mucous membranes and Atraumatic
Respiratory: Clear
Cardiac: S1/S2 and Regular Rhythm
Breast: Deferred by me
GI: Soft, Non Tender, Non Distended and Normal Bowel Sounds
Rectal: Deferred by Provider
Genito-urinary: Deferred by me
Musculoskeletal: No Clubbing, No Cyanosis, Edema, Left Lower Extremity (Trace) and Edema, Right Lower Extremity (Trace)
Skin: Warm
Neuro: AO x 3 and Nonfocal/grossly intact
Hematologic/Lymphatic: No Lymphadenopathy
Psych: Calm
Laboratory Results
-
12/06/24 16:17
12/06/24 16:17
Laboratory Results
pH 7.40 (7.35-7.45) 12/06/24 17:41
pCO2 52 mmHg (35-48) H 12/06/24 17:41
pO2 83 mmHg (83-108) 12/06/24 17:41
HCO3 32.2 mmol/L (21-28) H 12/06/24 17:41
Total Bilirubin Cancelled 12/06/24 16:17
AST Cancelled 12/06/24 16:17
ALT Cancelled 12/06/24 16:17
Alkaline Phosphatase Cancelled 12/06/24 16:17
Troponin I < 0.012 ng/ml 12/06/24 16:17
Data Reviewed
-
Diagnostic Radiology: Image Personally Visualized and interpreted
CT Scan: Report Reviewed by me
Medical Tests (Nuc Med, Echo, EKG etc): Image Personally Visualized and interpreted
Lab Data: Labs Reviewed by me
Old Records: Reviewed
Impression/Plan
-
IMPRESSION:
54-year-old, morbid obesity, atrial fibrillation on amnio and Eliquis, JENNI on CPAP, CHF, diabetes, recently admitted for COVID and hospitalized for couple of days discharged 2 days ago presents to the emergency department with a fall at home while
rolling on the bed and was found to be hypoxic in the emergency department. Currently is satting 97% on 1 L. ECG is nonischemic. Troponin is normal. BNP is elevated at 1000. Chest x-ray is notable for marked the low lung volumes. CT PE is
negative for PE, no evidence of interstitial edema or consolidation. Cardiomegaly is noted. CT of the head is negative for any acute intracranial process, no evidence of intracranial bleed.
PLAN:
1. Hypoxia -patient with morbid obesity, recent COVID infection presents to the Emergency Department following a fall. He has no evidence of acute CHF exacerbation on exam or imaging. I suspect this is his ongoing COVID infection with mild
persistent hypoxia. My see no indication for acute diuresis. Patient CT PE is negative for any acute pulmonary embolism.
- admit to med/surg observation
- supplemental oxygen to keep sat > 92%
- continue dexamethasone to complete 10 day course for COVID
- no cough, fevers to suggest acute worsening of covid symptoms
- continue CPAP HS
- incentive spirometry
- PT evaluation
2. AFIB - currently rate controlled
- continue amio 100
- eliquis 5 bid
3. CHF - BNP elevated likely in setting of COVID. NO worseing peripheral edema or pleural effusion
- got lasix 60 iv in ED, will continue with lasix 40 daily for now now
- keep K, Mag > 4,2
4. JENNI, obesity - Chronic hypercapnea, compensated.
- CPAP HS
5. DM II
- sliding scale insulin, hold metformin x 48 hours s/p contrast
DVT PPX - on eliquis
Code status - Full Code
[2024-12-06] MEDS: LASIX 60 MG IV (20:39)
[2024-12-07 00:19] VITALS: BMI 63.4
[2024-12-07 00:31] VITALS: BP 104/51
[2024-12-07 00:59] VITALS: BMI 63.4
[2024-12-07 01:00] VITALS: PULSE 88
[2024-12-07] MEDS: ABILIFY 5 MG PO ×2 (01:12→20:02)
[2024-12-07] MEDS: REMERON 15 MG PO ×2 (01:12→20:02)
[2024-12-07] MEDS: PRAVACHOL 40 MG PO ×2 (01:13→20:02)
[2024-12-07 01:17] LABS: Glucose - Point of Care 159 mg/dl (70-99)
--- NOTE | 2024-12-07 02:43 | PTCARENOTE ---
12/07/2024 - PT admitted to room 2130 from the ED @ 00:20. PT transferred from stretcher to bed with max assist. PT orientated to room, call hernández, plan of care discussed. PT AAOX3 and able to participate in admission questions fully. Assessment as
documented.
[2024-12-07 03:40] VITALS: BP 119/64
[2024-12-07 07:45] VITALS: BP 116/92
[2024-12-07 08:00] LABS: Glucose - Point of Care 121 mg/dl (70-99)
[2024-12-07] MEDS: NOVOLOG FLEXPEN-LOW RESISTANCE SC (08:12)
[2024-12-07] MEDS: ELIQUIS 5 MG PO ×2 (09:15→20:02)
[2024-12-07] MEDS: PROTONIX 40 MG PO ×2 (09:15→20:02)
[2024-12-07] MEDS: DECADRON 6 MG PO (09:16)
[2024-12-07] MEDS: LEXAPRO 10 MG PO (09:16)
[2024-12-07] MEDS: PACERONE 100 MG PO (09:16)
[2024-12-07] MEDS: KLONOPIN 1 MG PO ×2 (09:16→20:02)
[2024-12-07] MEDS: LASIX 40 MG PO (09:16)
[2024-12-07] MEDS: TRIAMCINOLONE ACETONIDE 0.1% CREAM 1 APPLIC TOPICAL ×2 (09:17→20:04)
[2024-12-07] MEDS: DESENEX/MITRAZOL/ZEASORB 1 APPLIC TOPICAL ×2 (09:26→20:04)
[2024-12-07 09:30] LABS: Blood Urea Nitrogen 25 mg/dl (9-20); Carbon Dioxide 36 mmol/L (22-30); Chloride 101 mmol/L (98-107); Estimated Creatinine Clearance 109 ml/min; Glucose 112 mg/dl (70-99); Potassium 3.5 mmol/L (3.5-5.1); Sodium 142 mmol/L (135-145); eGFR > 60.00
--- NOTE | 2024-12-07 10:46 | W.PN.HOSP.TC ---
Today's Communication/Plan
-
continue oral lasix
continue oral steroids
repeat procal
wean O2 as able
PT/OT
Pulm consulted
Assessment / Plan
Assessment / Plan
Assessment:
Acute hypoxic respiratory insufficiency on 2L
- wean O2 as able
Acute COVID-19 infection
- admitted last week discharged with oral steroids (completed 3 days of Remdesivir)
- CXR repeat with improved GGO
- continue oral steroids x 10 total days
- repeat check of procal (previously normal)
Paroxysmal atrial fibrillation
- continue amiodarone
- continue Coreg
- continue Eliquis
Chronic lower extremity lymphedema
Chronic HFpEF
- s/p 1 dose IV Lasix; continue oral Lasix
Chronic toe wounds
Obesity
Chronic hypercarbia/hypoxemic respiratory failure secondary to obesity
Type 2 diabetes
- hold metformin
- Insulin sliding scale
- A1c is 6.0%
Constipation
Anxiety
- continue clonazepam
Chronic anemia
- hemoglobin stable
DVT ppx: Eliquis
Code: Full
Anticipated Discharge: > 48 hours
Subjective/Interval History
-
Date of Service: December 07, 2024
mild SOB
Objective Data
-
Labs:
Laboratory Results
12/07/24
08:44
Sodium 142
Potassium 3.5
Chloride 101
Carbon Dioxide 36 H
BUN 25 H
Creatinine 1.3
Glucose 112 H
Calcium 8.0 L
Vital Signs:
Vital Signs
Temp Pulse Resp BP Pulse Ox
98.4 F 63 20 116/92 92
12/07/24 07:45 12/07/24 07:45 12/07/24 07:45 12/07/24 07:45 12/07/24 07:45
I&O
12/06/24 12/07/24 12/08/24
06:59 06:59 06:59
Intake Total 220 / 220
Balance 220 / 220
Physical Exam
-
General: No Apparent Distress
HEENT: Normocephalic and Atraumatic
Respiratory: Negative Wheezes
Cardiac: Regular Rhythm and S1/S2
GI: Soft and Nontender
Musculoskeletal: Edema, Right Lower Extrem (chronic lymphedema) and Edema, Left Lower Extrem (chronic lymphedema)
Neuro: AO x 3
Hematologic / Lymphatic: No Lymphadenopathy
Psych: Calm
Data Reviewed
-
Total Time Spent with Patient (in minutes): 45
Labs: Labs Reviewed by me
[2024-12-07 12:10] LABS: Procalcitonin 0.32 ng/ml (0.0-0.25)
[2024-12-07 12:37] LABS: Glucose - Point of Care 197 mg/dl (70-99)
[2024-12-07] MEDS: NOVOLOG FLEXPEN-LOW RESISTANCE 1 UNITS SC ×2 (13:35→16:57)
--- NOTE | 2024-12-07 15:35 | CM ---
Pt sleeping - spoke with pts , Andreia to complete IA
Lives with his in a 2 story home; no steps to enter, FF set-up
Recently d/c'ed from SNF. Increasing weakness per . Unsteady gait
DME - CPAP thru [facility]
SNF - [facility], [facility], [facility] in past. Requesting SNF - prefers [facility]; no [facility] or [facility]
HH - has had [facility] in past
PCP - [facility] [place]
Pharm - [facility] in [place]
Discussed current OBS status - aware
PT/OT eval pend - based on eval
Plan - TBD - pending PT/OT eval, anticipate SNF
--- NOTE | 2024-12-07 16:00 | CON.PUL ---
Consultation
Consultation Request
Date/Time Consultation Requested: 12/07/2024 - 1030
Date/Time Consultation Performed: 12/07/2024 - 1540
Requesting Provider: Dr. Shi
Performing Provider: Dr. Wooten
Reason for Consultation: Hypoxia
Medical History
-
Chief Complaint: Fall
History of Present Illness:
54-year-old severely morbidly obese male with a past medical history of A-fib on amiodarone/Eliquis, hypertension, hypercholesterolemia, JENNI on CPAP, bipolar disorder chronic lymphedema, toe wounds, and history of respiratory failure due to
aspiration and pleural effusion (2013) who presented with falling out of bed and unable to get up. He says that he called 911 once he was on the floor, but what was told to triage was that a vice president of engineering had seen him on the floor and then patient had
low blood pressure and that is when EMS was called.. He is on Eliquis for history of A-fib. He was recently hospitalized here from 12/01 - 12/04/2024 due to COVID-19 pneumonia with hypoxia. He had groundglass opacities in both lungs, treated with
remdesivir and Decadron. He was discharged home with visiting nurses on 12/04. Patient was not short of breath at home, although he does have chronic shortness of breath but it is currently at its baseline. He did not strike his head when he fell.
He also denies any cough. EMS found him to be slightly hypoxic. Here in the ER he was afebrile to 97.5 �F, pulse rate 62, respiratory rate 22, BP 103/81 and saturating 90% on room air. He did drop to the mid 80s on room air and required 2 L/min
which improved his saturation to 98%. Initial labs showed Hb 9.6, blood gas showed chronic hypercapnia with pH neutral at 7.4, pCO2 52, serum bicarbonate level 31, BUN 27, proBNP 1020, troponin negative at <0.012, and procalcitonin 0.32. Head,
cervical spine and chest CT were performed, with no intracranial hemorrhage or infarction, no cervical spine fracture, and no evidence of a PE. There was an elevated/eventrated right hemidiaphragm and also small bilateral pleural effusions with low
lung volumes. Given the elevated proBNP and his hypoxia, he was given Lasix in the ER (60 mg IVP x 1). He was admitted to the hospitalist service on [facility]. He has required between 1-2 L/min to maintain saturations >92%, and now pulmonary
service consulted for additional management/recommendations.
Patient was seen earlier on 12/07/2024 (late note entry). When I saw the patient he was resting in bed, in no acute distress. He is currently on 2 L/min nasal cannula. He says he has been compliant with a CPAP at home. He does have shortness of
breath but he currently says that it is no different than his normal shortness of breath. He denies any current cough, NIX, abdominal pain, nausea, fevers or chills.
PMHx: History of respiratory failure due to aspiration and pleural effusion (2013), history of intentional suicide overdose with acids and alkaline material, A-fib on amiodarone + Eliquis, hypertension, hypercholesterolemia, esophageal strictures,
morbid obesity with BMI >60, JENNI on CPAP, bipolar disorder, chronic lymphedema, toe wounds
PSHx: Sinus surgery, tumor removed
Past Medical History
Past Medical History: Other (Above as per HPI)
Past Surgical History: Other (Above as per HPI)
Social History
Tobacco: Non-smoker
Alcohol: None
Drug: None
Family History
Family History: Reviewed & Not Pertinent
Allergies / Home Medications
Allergies
Allergy/AdvReac Type Severity Reaction Status Date / Time
No Known Allergies Allergy Verified 12/06/24 14:36
Home Medications
�Medication �Instructions �Recorded �Confirmed �Last Taken �Type
omeprazole 40 mg capsule,delayed 40 mg PO BID Gastrointestinal Issue 07/27/16 12/06/24 07/27/16 History
release
apixaban 5 mg tablet (Eliquis) 5 mg PO BID Blood Clot 09/07/24 12/06/24 09/07/24 History
Prevention/Tx
furosemide 40 mg tablet 40 mg PO DAILY Fluid 09/07/24 12/06/24 Unknown History
Retention/Swelling
pravastatin 40 mg tablet 40 mg PO HS High Cholesterol 09/07/24 12/06/24 Unknown History
amiodarone 100 mg tablet 100 mg PO DAILY Arrhythmia 12/02/24 12/06/24 Unknown History
aripiprazole 5 mg tablet 5 mg PO HS Depression 12/02/24 12/06/24 Unknown History
clonazepam 1 mg tablet 1 mg PO Q12H anxiety 12/02/24 12/06/24 Unknown History
escitalopram oxalate 10 mg tablet 10 mg PO DAILY depression/anxiety 12/02/24 12/06/24 Unknown History
metformin 500 mg tablet 500 mg PO BID@0800,1700 Diabetes 12/02/24 12/06/24 Unknown History
miconazole nitrate 2 % topical 1 applic topical BID abdominal 12/02/24 12/06/24 Unknown History
powder (Miconazorb AF) folds
mirtazapine 15 mg tablet 15 mg PO HS depression/sleep 12/02/24 12/06/24 Unknown History
triamcinolone acetonide 0.1 % 1 applic topical BID to face 12/02/24 12/06/24 Unknown History
topical cream
dexamethasone 2 mg tablet 6 mg (3 x 2 mg) PO DAILY #18 tabs 12/04/24 12/06/24 Unknown Rx
Review of Systems
-
History Source: Patient
All other systems: Negative unless noted
Vitals / Labs / Diagnostic Testing
Vital Signs
Temp Pulse Resp BP Pulse Ox
98.4 F 63 20 116/92 92
12/07/24 07:45 12/07/24 07:45 12/07/24 07:45 12/07/24 07:45 12/07/24 08:00
Lab Data
12/06/24 16:17
12/07/24 08:44
Diagnostic Testing:
Physical Exam
-
HEENT: Normocephalic, Anicteric and Other (Thick neck)
Cardiovascular: Peripheral Edema (Trace lower extremity edema bilaterally) and Other (Distant heart sounds due to body habitus)
Respiratory: Wheeze (negative), Rales (Bilaterally), Rhonchi (negative), Non-Labored Respirations and Other (Diminished breath sounds bilaterally)
GI: Soft, Distended (Severe abdominal obesity), Non Tender and Normal Bowel Sounds
Neurology: Awake, Alert and Tremors (negative)
Skin: Warm and Dry
General: Respiratory Distress (negative), Comfortable, Fever (negative) and Chills (negative)
Assessment
-
Assessment: 54-year-old severely morbidly obese male with a past medical history of A-fib on amiodarone/Eliquis, hypertension, hypercholesterolemia, JENNI on CPAP, bipolar disorder chronic lymphedema, toe wounds, and history of respiratory failure
due to aspiration and pleural effusion (2013) who presented with falling out of bed and unable to get up. He says that he called 911 once he was on the floor, but what was told to triage was that a vice president of engineering had seen him on the floor and then
patient had low blood pressure and that is when EMS was called.. He is on Eliquis for history of A-fib. He was recently hospitalized here from 12/01 - 12/04/2024 due to COVID-19 pneumonia with hypoxia. He had groundglass opacities in both lungs,
treated with remdesivir and Decadron. He was discharged home with visiting nurses on 12/04. Patient was not short of breath at home, although he does have chronic shortness of breath but it is currently at its baseline. He did not strike his head
when he fell. He also denies any cough. EMS found him to be slightly hypoxic. Here in the ER he was afebrile to 97.5 �F, pulse rate 62, respiratory rate 22, BP 103/81 and saturating 90% on room air. He did drop to the mid 80s on room air and
required 2 L/min which improved his saturation to 98%. Initial labs showed Hb 9.6, blood gas showed chronic hypercapnia with pH neutral at 7.4, pCO2 52, serum bicarbonate level 31, BUN 27, proBNP 1020, troponin negative at <0.012, and procalcitonin
0.32. Head, cervical spine and chest CT were performed, with no intracranial hemorrhage or infarction, no cervical spine fracture, and no evidence of a PE. There was an elevated/eventrated right hemidiaphragm. Given the elevated proBNP and his
hypoxia, he was given Lasix in the ER (60 mg IVP x 1). He was admitted to the hospitalist service on [facility]. He has required between 1-2 L/min to maintain saturations >92%, and now pulmonary service consulted for additional
management/recommendations.
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
esophageal strictures, morbid obesity with BMI >60, JENNI on CPAP, bipolar disorder, chronic lymphedema, toe wounds
Impression:
#Acute respiratory failure with hypoxia likely due to acute decompensated heart failure
#Chronic respiratory failure with hypercapnia and compensatory metabolic alkalosis � hypercapnia likely due to obesity hypoventilation syndrome
#Elevated proBNP of 1020 on 12/06/2024 (previously proBNP was 224 on 12/01/2024)
#Recent diagnosis of COVID-19 (diagnosed via SARS-CoV-2 antigen on 12/01/2024)
#Acute on chronic anemia (baseline Hb is roughly 10.5�12g/dL)
#Severe morbid obesity (BMI: 63.3)
#JENNI on CPAP
#Incidentally discovered 1.5 cm highly attenuated lesion in the inferior right frontal region, suspected to be meningioma (seen on CT head from 12/06/2024)
Plan:
- Hypoxia is likely multifactorial from recent COVID-19 with a restrictive lung defect from his significant morbid obesity in the setting of an elevated right hemidiaphragm (which is mild) and mild bilateral pleural effusions suggestive of acute
decompensated heart failure
- He was given 60 mg IV Lasix in the ER
- He is continuing on Decadron 6 mg daily which he was discharged home on from prior hospitalization
- Last echo was in September 2024 showing preserved biventricular function with LVEF at 55 to 60%, with moderately dilated LA, and no significant valvular disease --> consider rechecking a TTE
- Consider cardiology consult
- Trend I/O, daily weight, low-sodium/fluid restricted diet
- He will need PT/OT
- Maintain SpO2 >90-94% with supplemental O2 and wean down as tolerated
- If unable to wean down and/or resting SaO2 is <96% on room air, then check home O2 assessment prior to discharge
- Continue with CPAP with sleep and prn during the day during naps
- prn nebulized bronchodilators - not currently bronchospastic
- Incentive spirometer encouraged q1hr while awake
- Mucolytics if needed
- Continue other home medications including amiodarone, Eliquis, Abilify, Klonopin, Lexapro, etc.
- He needs to work on weight loss
- Considering he carries a diagnosis of JENNI, he would qualify for Zepbound --> would recommend him seeing a weight loss physician after discharge
- Replete electrolytes with K>4, Mg>2
- Trend H/H and transfuse if needed to keep Hb>7g/dL; keep plt>20k, unless there is concern for bleeding then keep plt>50k
- Maintain euglycemia with goal BG >100 and <180
- Defer additional workup/management to hospitalist of incidentally discovered 1.5 cm lesion in the right frontal lobe, with suspected meningioma
- DVT ppx: Eliquis
Pulmonary service will continue to follow along. I will arrange for outpatient pulmonary office follow-up mainly for CPAP and also for this new hypoxia; will check outpatient PFTs + 6MWT
Data:
CTA Chest 12/06/2024:
No evidence of central pulmonary embolism. Evaluation of more peripheral pulmonary arterial branches limited
Cardiomegaly.
Elevation/eventration of the right hemidiaphragm.
Total time spent today was 57 minutes for this encounter. Time includes reviewing laboratory test/imaging results, reviewing pertinent medical records, obtaining and reviewing medical history, performing an appropriate exam, ordering medications,
tests and procedures. Time also includes documentation of this encounter, coordinating patient care and communicating with other healthcare professionals. Total time does not include separately billed tests performed on this date of service.
[2024-12-07 16:50] LABS: Glucose - Point of Care 169 mg/dl (70-99)
[2024-12-07 21:35] LABS: Glucose - Point of Care 186 mg/dl (70-99)
[2024-12-07 22:15] VITALS: PULSE 81
[2024-12-07 23:18] VITALS: BP 107/55
[2024-12-08 03:05] VITALS: PULSE 75
[2024-12-08 06:00] VITALS: BMI 63.3
[2024-12-08 06:45] LABS: Hematocrit 28.5 % (39.0-52.0); Hemoglobin 8.9 g/dL (13.0-18.0); Mean Corp Hgb Conc. 31.2 g/dL (33.0-37.0); Mean Corpuscular Hgb 30.1 pg (27.0-31.0); Mean Corpuscular Volume 96.3 fL (80.0-94.0); Mean Platelet Volume 10.8 fL (7.4-10.4); Platelet Count 189 10^3/uL (130-400); Red Blood Cell Count 2.96 10^6/uL (4.70-6.10); Red Cell Dist. Width 19.2 % (11.5-14.5); White Blood Cell Count 5.9 10^3/uL (4.8-10.8)
[2024-12-08 07:06] LABS: Blood Urea Nitrogen 24 mg/dl (9-20); Carbon Dioxide 37 mmol/L (22-30); Chloride 98 mmol/L (98-107); Estimated Creatinine Clearance 109 ml/min; Glucose 165 mg/dl (70-99); Potassium 3.6 mmol/L (3.5-5.1); Sodium 140 mmol/L (135-145); eGFR > 60.00
[2024-12-08 07:20] VITALS: BP 115/62
[2024-12-08 07:35] LABS: Glucose - Point of Care 261 mg/dl (70-99)
[2024-12-08] MEDS: NOVOLOG FLEXPEN-LOW RESISTANCE 3 UNITS SC ×2 (08:07→12:50)
[2024-12-08] MEDS: PROTONIX 40 MG PO ×2 (08:39→20:43)
[2024-12-08] MEDS: DECADRON 6 MG PO (08:39)
[2024-12-08] MEDS: KLONOPIN 1 MG PO ×2 (08:40→20:42)
[2024-12-08] MEDS: LEXAPRO 10 MG PO (08:40)
[2024-12-08] MEDS: ELIQUIS 5 MG PO ×2 (08:40→20:43)
[2024-12-08] MEDS: PACERONE 100 MG PO (08:40)
[2024-12-08] MEDS: DESENEX/MITRAZOL/ZEASORB 1 APPLIC TOPICAL ×2 (08:41→20:51)
[2024-12-08] MEDS: TRIAMCINOLONE ACETONIDE 0.1% CREAM 1 APPLIC TOPICAL ×2 (08:42→20:51)
[2024-12-08] MEDS: FLUSH (NSS) 2 FLUSH IV ×3 (09:20→16:38)
[2024-12-08] MEDS: LASIX 40 MG IV ×2 (09:22→16:38)
[2024-12-08] MEDS: VIBRAMYCIN 100 MG PO ×2 (09:22→20:43)
[2024-12-08] MEDS: LASIX PO (09:23)
[2024-12-08] MEDS: STERILE WATER FOR INJECTION 20 ML IV (10:50)
[2024-12-08] MEDS: ROCEPHIN 2000 MG IV (10:50)
--- NOTE | 2024-12-08 12:26 | CON.CAR ---
Consultation
Consultation Request
Date/Time Consultation Requested: 12/08/2024 at 8:27 AM
Date/Time Consultation Performed: 12/08/2024 at 11:30 AM
Requesting Provider: Annabel Shi MD
Performing Provider: Cj Lew MD
Reason for Consultation: CHF
Medical History
-
Chief Complaint: CHF
History of Present Illness:
54-year-old man with recent COVID infection, HFpEF, JENNI, morbid obesity, paroxysmal atrial fibrillation on amiodarone and Eliquis who presents with weakness. He is a patient of Dr. Keith at [place] [facility]. He was recently hospitalized
with COVID infection was discharged from on 12/04/2024. He reports that at home he was very weak and fell out of bed. He and his could not get him up so they called EMS. He has no complaints of chest pain or shortness of breath at rest but
does have orthopnea and leg swelling. In the ER he had hypoxia with saturations in the mid 80s on room air. Labs notable for proBNP 1020, troponin negative at 0.012. Chest CT with tiny right pleural effusion, no left pleural effusion, and no
acute pulmonary edema.
Past Medical History
Past Medical History: Other (As above)
Family History
Family History: Reviewed & Not Pertinent
Allergies / Home Medications
Allergy/AdvReac Type Severity Reaction Status Date / Time
No Known Allergies Allergy Verified 12/06/24 14:36
�Medication �Instructions �Recorded �Confirmed �Type
omeprazole 40 mg capsule,delayed 40 mg PO BID Gastrointestinal Issue 07/27/16 12/06/24 History
release
apixaban 5 mg tablet (Eliquis) 5 mg PO BID Blood Clot 09/07/24 12/06/24 History
Prevention/Tx
furosemide 40 mg tablet 40 mg PO DAILY Fluid 09/07/24 12/06/24 History
Retention/Swelling
pravastatin 40 mg tablet 40 mg PO HS High Cholesterol 09/07/24 12/06/24 History
amiodarone 100 mg tablet 100 mg PO DAILY Arrhythmia 12/02/24 12/06/24 History
aripiprazole 5 mg tablet 5 mg PO HS Depression 12/02/24 12/06/24 History
clonazepam 1 mg tablet 1 mg PO Q12H anxiety 12/02/24 12/06/24 History
escitalopram oxalate 10 mg tablet 10 mg PO DAILY depression/anxiety 12/02/24 12/06/24 History
metformin 500 mg tablet 500 mg PO BID@0800,1700 Diabetes 12/02/24 12/06/24 History
miconazole nitrate 2 % topical 1 applic topical BID abdominal 12/02/24 12/06/24 History
powder (Miconazorb AF) folds
mirtazapine 15 mg tablet 15 mg PO HS depression/sleep 12/02/24 12/06/24 History
triamcinolone acetonide 0.1 % 1 applic topical BID to face 12/02/24 12/06/24 History
topical cream
dexamethasone 2 mg tablet 6 mg (3 x 2 mg) PO DAILY #18 tabs 12/04/24 12/06/24 Rx
Review of Systems
-
All other systems: Negative unless noted
Physical Exam
Vital Signs
Temp Pulse Resp BP Pulse Ox
97.8 F 70 20 115/62 93
12/08/24 07:20 12/08/24 07:20 12/08/24 07:20 12/08/24 07:20 12/08/24 07:20
Lab Results
12/08/24 05:10
12/08/24 05:10
Troponin I < 0.012 ng/ml 12/06/24 16:17
Ghs-A-Rrvdmqeofrr Pept 1020 pg/ml 12/06/24 16:17
Physical Exam
General: Well Developed, Well Nourished and Other (Morbidly obese)
HEENT: Normocephalic and Anicteric
Respiratory: Non Labored Respirations and Other (Decreased breath sounds due to body habitus)
Cardiac: S1/S2, Regular Rhythm and Peripheral Edema; Negative Murmur
Neuro: AO x 3
Impression / Plan
-
54-year-old man with recent COVID infection, HFpEF, JENNI, morbid obesity, paroxysmal atrial fibrillation on amiodarone and Eliquis who presents with weakness, found to be hypoxic in the ER. Cardiology is consulted due to concern for CHF exacerbation.
Acute hypoxic respiratory failure
-Likely multifactorial in the setting of recent COVID infection, JENNI, and obesity hypoventilation. There may be a component of CHF but he is a very difficult volume exam. Tiny right pleural effusion on chest CT.
-Diurese with 40 mg IV Lasix twice daily
-He is a very difficult volume exam, so we will need to trend weights closely and keep an eye on creatinine with diuresis
-Pulmonary following for recent COVID and chronic lung disease
Acute on chronic HFpEF
-TTE 09/09/2024: LVEF 55-60%, technically limited study, unable to estimate PASP
-As above, diurese with IV Lasix and establish dry weight prior to discharge
-Asked case management to aldrich SGLT2 inhibitor
Paroxysmal atrial fibrillation
-Continue home amiodarone 100 mg daily and Eliquis 5 mg twice daily
Data Reviewed
-
EKG: Tracing Personally Visualized and interpreted
Radiology: Image Personally Visualized and interpreted, Discussed with Physician and Discussed with Patient
CT Scan: Report Reviewed by me
Medical Tests (Nuc Med, Echo etc): Report Reviewed by me
Labs: Labs Reviewed by me, Discussed with Physician and Discussed with Patient
Old Records: Reviewed
[2024-12-08 12:50] LABS: Glucose - Point of Care 266 mg/dl (70-99)
--- NOTE | 2024-12-08 14:55 | W.PN.HOSP.TC ---
Today's Communication/Plan
-
IV Lasix BID
Abx for elevated procal
continue steroids
follow cards/pulm recs
Assessment / Plan
Assessment / Plan
Assessment:
Acute hypoxic respiratory insufficiency on 2L
- wean O2 as able
Acute COVID-19 infection
- admitted last week discharged with oral steroids (completed 3 days of Remdesivir)
- CXR repeat with improved GGO
- continue oral steroids x 10 total days
- procal elevated; started on Rocephin/Doxy, day 1
Paroxysmal atrial fibrillation
- continue amiodarone
- continue Coreg
- continue Eliquis
Chronic lower extremity lymphedema
acute on chronic HFpEF
- continue IV Lasix - requires intensive monitoring of I/Os, weights, lytes
- Cardiology following
Chronic toe wounds
Obesity
Chronic hypercarbia/hypoxemic respiratory failure secondary to obesity
Type 2 diabetes
- hold metformin
- Insulin sliding scale
- A1c is 6.0%
Constipation
Anxiety
- continue clonazepam
Chronic anemia
- hemoglobin stable
DVT ppx: Eliquis
Code: Full
Anticipated Discharge: > 48 hours
Subjective/Interval History
-
Date of Service: December 08, 2024
no acute complaints
Objective Data
-
Labs:
Laboratory Results
12/08/24
05:10
WBC 5.9
Hgb 8.9 L
Hct 28.5 L
Plt Count 189
Sodium 140
Potassium 3.6
Chloride 98
Carbon Dioxide 37 H
BUN 24 H
Creatinine 1.3
Glucose 165 H
Calcium 8.0 L
Vital Signs:
Vital Signs
Temp Pulse Resp BP Pulse Ox
97.8 F 70 20 115/62 93
12/08/24 07:20 12/08/24 07:20 12/08/24 07:20 12/08/24 07:20 12/08/24 08:00
I&O
12/07/24 12/08/24 12/09/24
06:59 06:59 06:59
Intake Total 220 / 220 1200 / 1200
Balance 220 / 220 1200 / 1200
Physical Exam
-
General: No Apparent Distress
HEENT: Normocephalic and Atraumatic
Respiratory: Negative Wheezes
Cardiac: Regular Rhythm and S1/S2
GI: Soft and Nontender
Musculoskeletal: No Edema
Skin: Lesions
Neuro: AO x 3
Psych: Calm
Data Reviewed
-
Total Time Spent with Patient (in minutes): 51
Labs: Labs Reviewed by me
[2024-12-08 15:07] VITALS: BP 123/57; PULSE 69; O2SAT 94
[2024-12-08 15:20] VITALS: BP 117/57
--- NOTE | 2024-12-08 16:00 | W.PN.PUL3 ---
Today's Communication / Plan
-
Continue supplemental oxygen, weaning down as tolerated while keeping SpO2 >90%; if unable to wean off oxygen or if resting SaO2 is <96% on room air, then check ambulatory pulse oximetry prior to discharge
Trial of IV diuresis per cardiology
Recheck echo
PT/OT
Continue with Decadron which he was on following his recent discharge
Continue with CPAP with sleep
He will follow-up with pulmonary at [place]
Pulmonary service will continue to follow along
Assessment
-
Assessment: 54-year-old severely morbidly obese male with a past medical history of A-fib on amiodarone/Eliquis, hypertension, hypercholesterolemia, JENNI on CPAP, bipolar disorder chronic lymphedema, toe wounds, and history of respiratory failure
due to aspiration and pleural effusion (2013) who presented with falling out of bed and unable to get up. He says that he called 911 once he was on the floor, but what was told to triage was that a corporate travel counselor had seen him on the floor and then
patient had low blood pressure and that is when EMS was called.. He is on Eliquis for history of A-fib. He was recently hospitalized here from 12/01 - 12/04/2024 due to COVID-19 pneumonia with hypoxia. He had groundglass opacities in both lungs,
treated with remdesivir and Decadron. He was discharged home with visiting nurses on 12/04. Patient was not short of breath at home, although he does have chronic shortness of breath but it is currently at its baseline. He did not strike his head
when he fell. He also denies any cough. EMS found him to be slightly hypoxic. Here in the ER he was afebrile to 97.5 �F, pulse rate 62, respiratory rate 22, BP 103/81 and saturating 90% on room air. He did drop to the mid 80s on room air and
required 2 L/min which improved his saturation to 98%. Initial labs showed Hb 9.6, blood gas showed chronic hypercapnia with pH neutral at 7.4, pCO2 52, serum bicarbonate level 31, BUN 27, proBNP 1020, troponin negative at <0.012, and procalcitonin
0.32. Head, cervical spine and chest CT were performed, with no intracranial hemorrhage or infarction, no cervical spine fracture, and no evidence of a PE. There was an elevated/eventrated right hemidiaphragm. Given the elevated proBNP and his
hypoxia, he was given Lasix in the ER (60 mg IVP x 1). He was admitted to the hospitalist service on [facility]. He has required between 1-2 L/min to maintain saturations >92%, and now pulmonary service consulted for additional
management/recommendations.
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
esophageal strictures, morbid obesity with BMI >60, JENNI on CPAP, bipolar disorder, chronic lymphedema, toe wounds
Impression:
#Acute respiratory failure with hypoxia likely due to acute decompensated heart failure
#Chronic respiratory failure with hypercapnia and compensatory metabolic alkalosis � hypercapnia likely due to obesity hypoventilation syndrome
#Elevated proBNP of 1020 on 12/06/2024 (previously proBNP was 224 on 12/01/2024)
#Recent diagnosis of COVID-19 (diagnosed via SARS-CoV-2 antigen on 12/01/2024)
#Acute on chronic anemia (baseline Hb is roughly 10.5�12g/dL)
#Severe morbid obesity (BMI: 63.3)
#JENNI on CPAP
#Incidentally discovered 1.5 cm highly attenuated lesion in the inferior right frontal region, suspected to be meningioma (seen on CT head from 12/06/2024)
Plan:
- Hypoxia is likely multifactorial from recent COVID-19 with a restrictive lung defect from his significant morbid obesity in the setting of an elevated right hemidiaphragm (which is mild) and mild bilateral pleural effusions suggestive of acute
decompensated heart failure
- He was given 60 mg IV Lasix in the ER --> now on 40mg IV BID lasix per cardiology
- He is continuing on Decadron 6 mg daily which he was discharged home on from prior hospitalization
- Last echo was in September 2024 showing preserved biventricular function with LVEF at 55 to 60%, with moderately dilated LA, and no significant valvular disease --> consider rechecking a TTE
- Cardiology consulted --> recs appreciated
- Trend I/O, daily weight, low-sodium/fluid restricted diet
- He will need PT/OT
- Maintain SpO2 >90-94% with supplemental O2 and wean down as tolerated
- If unable to wean down and/or resting SaO2 is <96% on room air, then check home O2 assessment prior to discharge
- Continue with CPAP with sleep and prn during the day during naps
- prn nebulized bronchodilators - not currently bronchospastic
- Incentive spirometer encouraged q1hr while awake
- Mucolytics if needed
- Continue other home medications including amiodarone, Eliquis, Abilify, Klonopin, Lexapro, etc.
- He needs to work on weight loss
- Considering he carries a diagnosis of JENNI, he would qualify for Zepbound --> would recommend him seeing a weight loss physician after discharge
- Replete electrolytes with K>4, Mg>2
- Trend H/H and transfuse if needed to keep Hb>7g/dL; keep plt>20k, unless there is concern for bleeding then keep plt>50k
- Maintain euglycemia with goal BG >100 and <180
- Defer additional workup/management to hospitalist of incidentally discovered 1.5 cm lesion in the right frontal lobe, with suspected meningioma
- DVT ppx: Eliquis
Pulmonary service will continue to follow along. He says he has a pulmonary doctor through [place] that he is going to follow-up with.
Data:
CTA Chest 12/06/2024:
No evidence of central pulmonary embolism. Evaluation of more peripheral pulmonary arterial branches limited
Cardiomegaly.
Elevation/eventration of the right hemidiaphragm.
Total time spent today was 36 minutes for this encounter. Time includes reviewing laboratory test/imaging results, reviewing pertinent medical records, obtaining and reviewing medical history, performing an appropriate exam, ordering medications,
tests and procedures. Time also includes documentation of this encounter, coordinating patient care and communicating with other healthcare professionals. Total time does not include separately billed tests performed on this date of service.
Subjective Data
-
Date of Service:
Date of Service: December 08, 2024
Chief Complaint: Pulmonary Follow Up
Subjective:
Patient seen and evaluated today at bedside. Sitting in chair this morning and now laying in bed. Currently on 2 L/min nasal cannula. He feels well with his breathing, denies shortness of breath or cough. Saturating 93%. Denies NIX, nausea,
fevers or chills.
Review of Systems
General: Other (Negative unless mentioned above)
Objective Data
Data Reviewed
Vital Signs / I&O / Oxygen:
Vital Signs
Temp Pulse Resp BP Pulse Ox
97.8 F 70 20 115/62 93
12/08/24 07:20 12/08/24 07:20 12/08/24 07:20 12/08/24 07:20 12/08/24 07:20
Intake and Output
12/07/24 12/08/24 12/09/24
06:59 06:59 06:59
Intake Total 220 / 220 1200 / 1200
Balance 220 / 220 1200 / 1200
SaO2 93
Nasal Cannula flow liters per 2
minute
Physical Exam
General: Respiratory Distress (negative), Comfortable, Chills (negative), Sweats (negative) and Other (Morbidly obese male in NAD)
HEENT: Normocephalic, Anicteric and Other (Thick neck)
Cardiovascular: S1-S2, Peripheral Edema (Trace lower extremity edema bilaterally) and Other (Distant cardiac sounds due to body habitus)
Respiratory: Wheeze (negative), Crackles (negative), Rhonchi (negative), Non-Labored Respirations and Other (Diminished breath sounds due to body habitus)
GI: Soft, Distended (Significant abdominal obesity), Non Tender and Normal Bowel Sounds
Neurology: AO x 3 and Tremors (negative)
Skin: Warm, Dry, Cyanosis (negative) and Jaundice (negative)
Labs/Micro/Reports
Lab Data
12/08/24 05:10
12/08/24 05:10
--- NOTE | 2024-12-08 16:03 | CM ---
PT/OT evals completed -
SNF referrals sent
Plan - SNF when bed/auth obtained and medically stable
[2024-12-08] MEDS: NOVOLOG FLEXPEN-LOW RESISTANCE 1 UNITS SC (16:39)
[2024-12-08 16:43] LABS: Glucose - Point of Care 177 mg/dl (70-99)
[2024-12-08] MEDS: PRAVACHOL 40 MG PO (20:43)
[2024-12-08] MEDS: REMERON 15 MG PO (20:44)
[2024-12-08] MEDS: ABILIFY 5 MG PO (20:50)
[2024-12-08 22:00] VITALS: PULSE 77
[2024-12-08 22:10] LABS: Glucose - Point of Care 251 mg/dl (70-99)
[2024-12-08 23:20] VITALS: BP 115/56
[2024-12-09 06:00] VITALS: BMI 61.4
[2024-12-09 07:45] VITALS: BP 151/78
[2024-12-09 08:10] LABS: Glucose - Point of Care 177 mg/dl (70-99)
[2024-12-09] MEDS: NOVOLOG FLEXPEN-LOW RESISTANCE 1 UNITS SC ×2 (08:13→17:36)
[2024-12-09] MEDS: PROTONIX 40 MG PO ×2 (08:15→21:07)
[2024-12-09] MEDS: ELIQUIS 5 MG PO ×2 (08:15→21:07)
[2024-12-09] MEDS: PACERONE 100 MG PO (08:15)
[2024-12-09] MEDS: KLONOPIN 1 MG PO ×2 (08:15→21:07)
[2024-12-09] MEDS: DECADRON 6 MG PO (08:15)
[2024-12-09] MEDS: LEXAPRO 10 MG PO (08:15)
[2024-12-09] MEDS: VIBRAMYCIN 100 MG PO ×2 (08:15→21:07)
[2024-12-09] MEDS: DESENEX/MITRAZOL/ZEASORB 1 APPLIC TOPICAL ×2 (08:16→21:06)
[2024-12-09] MEDS: TRIAMCINOLONE ACETONIDE 0.1% CREAM 1 APPLIC TOPICAL ×2 (08:16→21:08)
[2024-12-09] MEDS: LASIX 40 MG IV (08:16)
[2024-12-09 08:49] LABS: Hematocrit 29.6 % (39.0-52.0); Hemoglobin 9.3 g/dL (13.0-18.0); Mean Corp Hgb Conc. 31.4 g/dL (33.0-37.0); Mean Corpuscular Hgb 30.3 pg (27.0-31.0); Mean Corpuscular Volume 96.4 fL (80.0-94.0); Platelet Count 223 10^3/uL (130-400); Red Blood Cell Count 3.07 10^6/uL (4.70-6.10); Red Cell Dist. Width 19.3 % (11.5-14.5)
--- NOTE | 2024-12-09 08:53 | W.PN.CD ---
Today's Communication / Plan
-
Please obtain standing weights and strict I/Os
40 mg IV Lasix twice daily
Echo today
Impression / Plan
-
54-year-old man with recent COVID infection, HFpEF, JENNI, morbid obesity, paroxysmal atrial fibrillation on amiodarone and Eliquis who presents with weakness, found to be hypoxic in the ER. Cardiology is consulted due to concern for CHF exacerbation.
Acute hypoxic respiratory failure
-Likely multifactorial in the setting of recent COVID infection, pna, JENNI, and obesity hypoventilation. There may be a component of CHF but he is a very difficult volume exam. Tiny right pleural effusion on chest CT.
-Diurese with 40 mg IV Lasix twice daily
-He is a very difficult volume exam, so we will need to trend weights closely and keep an eye on creatinine with diuresis
-Please obtain daily standing weights
-Pulmonary following for recent COVID and chronic lung disease
Acute on chronic HFpEF
-TTE 09/09/2024: LVEF 55-60%, technically limited study, unable to estimate PASP
-As above, diurese with IV Lasix and establish dry weight prior to discharge
-Asked case management to aldrich SGLT2 inhibitor
-Echo today
Paroxysmal atrial fibrillation
-Continue home amiodarone 100 mg daily and Eliquis 5 mg twice daily
Subjective: Feels mildly improved today. He thinks he is peeing more than usual but I/O's are inaccurate and weights are bed weights.
Physical Exam
Vital Signs/Labs
Vital Signs
Temp Pulse Resp BP Pulse Ox
98.1 F 72 18 115/56 95
12/09/24 07:45 12/09/24 07:45 12/09/24 07:45 12/08/24 23:20 12/09/24 07:45
12/08/24 12/09/24 12/10/24
06:59 06:59 06:59
Actual Weight 194.364 kg 188.558 kg
12/09/24 08:23
Magnesium 2.0 mg/dl (1.6-2.3) 12/07/24 08:44
12/06/24
16:17
Szt-F-Fkprfahfkdd Pept 1020
LAB Results
12/06/24
16:17
Troponin I < 0.012
Physical Exam
Constitutional: No acute distress and Comfortable
Cardiovascular: Rhythm & rate is regular, Pedal edema present, S1S2 is normal and Murmur/rub/gallop absent
Respiratory: Respiratory effort normal (Decreased breath sounds due to body habitus)
Neuro/Psych: AO x 3
Data Reviewed
-
Date of Service: December 09, 2024
Medical Decision Making: Reviewed Test Results, Independent Historian Assessment, Test Interpretation and Review of Case with other Provider
Echo: Report Reviewed by me
Labs: Labs Reviewed by me
[2024-12-09 09:14] LABS: Blood Urea Nitrogen 29 mg/dl (9-20); Calcium 8.1 mg/dl (8.4-10.2); Carbon Dioxide 38 mmol/L (22-30); Chloride 99 mmol/L (98-107); Estimated Creatinine Clearance 99 ml/min; Glucose 127 mg/dl (70-99); Potassium 3.9 mmol/L (3.5-5.1); Sodium 142 mmol/L (135-145); eGFR 59.36
--- NOTE | 2024-12-09 09:55 | PTCARENOTE ---
Cards tt'd this RN to get standing scale weight on pt, pt refused saying 'it should be done before I ever eat' and will not be willing to do it until tomorrow. Victor M and primary MD made aware, no new orders at this time.
[2024-12-09] MEDS: STERILE WATER FOR INJECTION 20 ML IV (10:54)
[2024-12-09] MEDS: ROCEPHIN 2000 MG IV (10:54)
[2024-12-09] MEDS: FLUSH (NSS) 2 FLUSH IV (10:55)
[2024-12-09 10:59] LABS: Glucose - Point of Care 146 mg/dl (70-99)
[2024-12-09] MEDS: NOVOLOG FLEXPEN-LOW RESISTANCE SC (10:59)
--- NOTE | 2024-12-09 12:00 | CARDSERVDEF ---
Echocardiogram with Definity completed after protocol screening completed. Allergies verified.
Patent IV site: Right arm midline basilic IV site clear____
IV site flushed with 0.9% NaCl pre and post administration.
Diluted bolus method utilized to enhance visualization of ventricular longoria.
Total volume given: _2__ mL
Patient tolerated all procedures well without complications.
--- NOTE | 2024-12-09 13:52 | W.PN.PUL3 ---
Today's Communication / Plan
-
Wean O2 off as tolerated, reviewed with RT
Encouraged OOB, PT, IS--would help with O2 requirements
Taper steroids to off
Outpatient FU with [facility]
Discharge planning per team
Assessment
-
54-year-old severely morbidly obese male with a past medical history of A-fib on amiodarone/Eliquis, hypertension, hypercholesterolemia, JENNI on CPAP, bipolar disorder chronic lymphedema, toe wounds, and history of respiratory failure due to
aspiration and pleural effusion (2013) who presented with falling out of bed and unable to get up. He says that he called 911 once he was on the floor, but what was told to triage was that a travel insurance agent had seen him on the floor and then patient had
low blood pressure and that is when EMS was called.. He is on Eliquis for history of A-fib. He was recently hospitalized here from 12/01 - 12/04/2024 due to COVID-19 pneumonia with hypoxia. He had groundglass opacities in both lungs, treated with
remdesivir and Decadron. He was discharged home with visiting nurses on 12/04. Patient was not short of breath at home, although he does have chronic shortness of breath but it is currently at its baseline. He did not strike his head when he fell.
He also denies any cough. EMS found him to be slightly hypoxic. Here in the ER he was afebrile to 97.5 �F, pulse rate 62, respiratory rate 22, BP 103/81 and saturating 90% on room air. He did drop to the mid 80s on room air and required 2 L/min
which improved his saturation to 98%. Initial labs showed Hb 9.6, blood gas showed chronic hypercapnia with pH neutral at 7.4, pCO2 52, serum bicarbonate level 31, BUN 27, proBNP 1020, troponin negative at <0.012, and procalcitonin 0.32. Head,
cervical spine and chest CT were performed, with no intracranial hemorrhage or infarction, no cervical spine fracture, and no evidence of a PE. There was an elevated/eventrated right hemidiaphragm. Given the elevated proBNP and his hypoxia, he was
given Lasix in the ER (60 mg IVP x 1). He was admitted to the hospitalist service on [facility]. He has required between 1-2 L/min to maintain saturations >92%, and now pulmonary service consulted for additional management/recommendations.
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
esophageal strictures, morbid obesity with BMI >60, JENNI on CPAP, bipolar disorder, chronic lymphedema, toe wounds
Impression:
#Acute respiratory failure with hypoxia likely due to acute decompensated heart failure
#Chronic respiratory failure with hypercapnia and compensatory metabolic alkalosis � hypercapnia likely due to obesity hypoventilation syndrome
#Elevated proBNP of 1020 on 12/06/2024 (previously proBNP was 224 on 12/01/2024)
#Recent diagnosis of COVID-19 (diagnosed via SARS-CoV-2 antigen on 12/01/2024)
#Acute on chronic anemia (baseline Hb is roughly 10.5�12g/dL)
#Severe morbid obesity (BMI: 63.3)
#JENNI on CPAP
#Incidentally discovered 1.5 cm highly attenuated lesion in the inferior right frontal region, suspected to be meningioma (seen on CT head from 12/06/2024)
Plan:
Hypoxia is likely multifactorial from recent COVID-19 with a restrictive lung defect from his significant morbid obesity in the setting of an elevated right hemidiaphragm (which is mild) and mild bilateral pleural effusions suggestive of acute
decompensated heart failure
Wean to off as tolerated, reviewed with RT
He uses O2 at home intermittently
He was given 60 mg IV Lasix in the ER --> now on 40mg IV BID lasix per cardiology
Last echo was in September 2024 showing preserved biventricular function with LVEF at 55 to 60%, with moderately dilated LA, and no significant valvular disease --> consider rechecking a TTE
Cardiology consulted --> recs appreciated
Trend I/O, daily weight, low-sodium/fluid restricted diet
He will need PT/OT
Maintain SpO2 >90-94% with supplemental O2 and wean down as tolerated
If unable to wean down and/or resting SaO2 is <96% on room air, then check home O2 assessment prior to discharge
Continue with CPAP with sleep and prn during the day during naps
prn nebulized bronchodilators - not currently bronchospastic
Incentive spirometer encouraged q1hr while awake
Mucolytics if needed
He is continuing on Decadron 6 mg daily which he was discharged home on from prior hospitalization-- would wean to off as tolerated
Continue other home medications including amiodarone, Eliquis, Abilify, Klonopin, Lexapro, etc.
He needs to work on weight loss
Considering he carries a diagnosis of JENNI, he would qualify for Zepbound --> would recommend him seeing a weight loss physician after discharge
- Replete electrolytes with K>4, Mg>2
- Trend H/H and transfuse if needed to keep Hb>7g/dL; keep plt>20k, unless there is concern for bleeding then keep plt>50k
- Maintain euglycemia with goal BG >100 and <180
- Defer additional workup/management to hospitalist of incidentally discovered 1.5 cm lesion in the right frontal lobe, with suspected meningioma
- DVT ppx: Eliquis
Pulmonary service will continue to follow along. He says he has a pulmonary doctor through [place] that he is going to follow-up with.
Data:
CTA Chest 12/06/2024: No evidence of central pulmonary embolism. Evaluation of more peripheral pulmonary arterial branches limited. Cardiomegaly.
Elevation/eventration of the right hemidiaphragm.
-----
Total time spent today was 45 minutes for this encounter. Time includes reviewing laboratory test/imaging results, reviewing pertinent medical records, obtaining and reviewing medical history, performing an appropriate exam, ordering medications,
tests and procedures. Time also includes documentation of this encounter, coordinating patient care and communicating with other healthcare professionals. Total time does not include separately billed tests performed on this date of service.
Subjective Data
-
Date of Service:
Date of Service: December 09, 2024
Chief Complaint: Pulmonary Follow Up
Subjective:
No new complaints, feels SOB is stable
On 2L, uses O2 intermittently at home
Objective Data
Data Reviewed
Vital Signs / I&O / Oxygen:
Vital Signs
Temp Pulse Resp BP Pulse Ox
98.1 F 72 18 115/56 95
12/09/24 07:45 12/09/24 08:15 12/09/24 07:45 12/09/24 08:15 12/09/24 11:16
Intake and Output
12/08/24 12/09/24 12/10/24
06:59 06:59 06:59
Intake Total 1200 / 1200 2620 / 2620
Output Total 350 / 350
Balance 1200 / 1200 2270 / 2270
SaO2 95
Nasal Cannula flow liters per 2
minute
Physical Exam
General: Respiratory Distress (negative), Comfortable, Chills (negative), Sweats (negative) and Other (Morbidly obese male in NAD)
HEENT: Normocephalic, Anicteric and Other (Thick neck)
Cardiovascular: S1-S2, Regular Rhythm, Peripheral Edema (Trace lower extremity edema bilaterally) and Other (Distant cardiac sounds due to body habitus)
Respiratory: Wheeze (negative), Crackles (negative), Rhonchi (negative), Non-Labored Respirations and Other (Diminished breath sounds due to body habitus)
GI: Soft, Distended (Significant abdominal obesity), Non Tender and Normal Bowel Sounds
Neurology: AO x 3 and Tremors (negative)
Skin: Warm, Dry, Cyanosis (negative) and Jaundice (negative)
Labs/Micro/Reports
Lab Data
12/09/24 08:23
12/09/24 08:16
--- NOTE | 2024-12-09 14:15 | W.PN.HOSP.TC ---
Today's Communication/Plan
-
continue IV diuretics
continue IV abx
MRI brain for CT head lesion
Assessment / Plan
Assessment / Plan
Assessment:
Acute hypoxic respiratory insufficiency on 2L
- wean O2 as able
Acute COVID-19 infection
- admitted last week discharged with oral steroids (completed 3 days of Remdesivir)
- CXR repeat with improved GGO
- Decadron day 06/18
- procal elevated; continue Rocephin/Doxy, day 2
Paroxysmal atrial fibrillation
- continue amiodarone
- continue Coreg
- continue Eliquis
Chronic lower extremity lymphedema
acute on chronic HFpEF
- continue IV Lasix - requires intensive monitoring of I/Os, weights, lytes
- Cardiology following
Chronic toe wounds
Obesity
Chronic hypercarbia/hypoxemic respiratory failure secondary to obesity
Type 2 diabetes
- hold metformin
- Insulin sliding scale
- A1c is 6.0%
Constipation
Anxiety
- continue clonazepam
Chronic anemia
- hemoglobin stable
1.5 cm slightly high attenuation lesion in the inferior right frontal region, cannot exclude extra-axial.
- Most likely differential diagnostic possibility would be a MENINGIOMA per CT
- MRI brain w/wo contrast ordered
DVT ppx: Eliquis
Code: Full
Anticipated Discharge: > 48 hours
Subjective/Interval History
-
Date of Service: December 09, 2024
resting comfortably
down several pounds with IV Lasix
Objective Data
-
Labs:
Laboratory Results
12/09/24 12/09/24
08:16 08:23
WBC 8.0
Hgb 9.3 L
Hct 29.6 L
Plt Count 223
Sodium 142
Potassium 3.9
Chloride 99
Carbon Dioxide 38 H
BUN 29 H
Creatinine 1.4 H
Glucose 127 H
Calcium 8.1 L
Vital Signs:
Vital Signs
Temp Pulse Resp BP Pulse Ox
98.1 F 72 18 115/56 95
12/09/24 07:45 12/09/24 08:15 12/09/24 07:45 12/09/24 08:15 12/09/24 11:16
I&O
12/08/24 12/09/24 12/10/24
06:59 06:59 06:59
Intake Total 1200 / 1200 2620 / 2620
Output Total 350 / 350
Balance 1200 / 1200 2270 / 2270
Physical Exam
-
General: No Apparent Distress
HEENT: Normocephalic and Atraumatic
Respiratory: Negative Wheezes
Cardiac: Regular Rhythm and S1/S2
GI: Soft and Nontender
Genito-urinary: No Costovertebral Tender
Musculoskeletal: Edema, Right Lower Extrem and Edema, Left Lower Extrem
Neuro: AO x 3
Psych: Calm
Data Reviewed
-
Total Time Spent with Patient (in minutes): 51
Labs: Labs Reviewed by me
[2024-12-09 15:40] VITALS: BP 141/78
--- NOTE | 2024-12-09 16:28 | CM ---
Addendum entered by Ruby Rosa 12/09/24 16:50:
Met with patient
LOC to inpatient, notified patient-no IMM needed
[facility] accepted, left message in careport regarding bed availability
Will need to obtain insurance auth
PLAN: SNF, pending bed availability, will need to obtain ins auth
Original Note:
CM consult completed for cost of Farxiga 10mg & Jardiance 10mg
Called [facility] & spoke with [facility] pharmacist
No cost for 30 day supply for Farxiga & No cost for 30 day supply for Jardiance 10mg
tt Cj Lew
[2024-12-09 17:19] LABS: Glucose - Point of Care 192 mg/dl (70-99)
[2024-12-09] MEDS: PRAVACHOL 40 MG PO (21:07)
[2024-12-09] MEDS: ABILIFY 5 MG PO (21:07)
[2024-12-09] MEDS: REMERON 15 MG PO (21:07)
[2024-12-09 22:01] LABS: Glucose - Point of Care 165 mg/dl (70-99)
[2024-12-09 23:51] VITALS: BP 113/54
[2024-12-10 00:20] VITALS: PULSE 81
[2024-12-10 04:11] VITALS: PULSE 81
[2024-12-10 05:05] LABS: Hematocrit 28.5 % (39.0-52.0); Mean Corp Hgb Conc. 31.6 g/dL (33.0-37.0); Mean Corpuscular Hgb 30.9 pg (27.0-31.0); Mean Corpuscular Volume 97.9 fL (80.0-94.0); Mean Platelet Volume 10.2 fL (7.4-10.4); Platelet Count 203 10^3/uL (130-400); Red Blood Cell Count 2.91 10^6/uL (4.70-6.10); Red Cell Dist. Width 19.2 % (11.5-14.5); White Blood Cell Count 7.7 10^3/uL (4.8-10.8)
[2024-12-10 05:27] LABS: Blood Urea Nitrogen 34 mg/dl (9-20); Calcium 7.7 mg/dl (8.4-10.2); Carbon Dioxide 40 mmol/L (22-30); Chloride 98 mmol/L (98-107); Estimated Creatinine Clearance 116 ml/min; Glucose 140 mg/dl (70-99); Potassium 3.8 mmol/L (3.5-5.1); Sodium 142 mmol/L (135-145); eGFR > 60.00
[2024-12-10 06:00] VITALS: BMI 63.0
[2024-12-10 07:57] LABS: Glucose - Point of Care 144 mg/dl (70-99)
[2024-12-10 07:59] VITALS: BP 139/76
--- NOTE | 2024-12-10 08:05 | W.PN.CD ---
Today's Communication / Plan
-
Cont IV diuresis
Started Farxiga 10 mg
Impression / Plan
-
54-year-old man with recent COVID infection, HFpEF, JENNI, morbid obesity, paroxysmal atrial fibrillation on amiodarone and Eliquis who presents with weakness, found to be hypoxic in the ER. Cardiology is consulted due to concern for CHF exacerbation.
Acute hypoxic respiratory failure
-Likely multifactorial in the setting of recent COVID infection, pna, JENNI, and obesity hypoventilation. There may be a component of CHF but he is a very difficult volume exam. Tiny right pleural effusion on chest CT.
-Cont diuresis 40 mg IV lasix bid
-He is a very difficult volume exam, so we will need to trend weights closely and keep an eye on creatinine with diuresis
-Please obtain daily standing weights
-Pulmonary following for recent COVID and chronic lung disease
Acute on chronic HFpEF
-TTE 09/09/2024: LVEF 55-60%, technically limited study, unable to estimate PASP
-As above, diurese with IV Lasix and establish dry weight prior to discharge
-Start Farxiga 10 mg today
-Echo today
Paroxysmal atrial fibrillation
-Continue home amiodarone 100 mg daily and Eliquis 5 mg twice daily
Subjective: Continues to feel better
Physical Exam
Vital Signs/Labs
Vital Signs
Temp Pulse Resp BP Pulse Ox
98.2 F 65 17 139/76 98
12/10/24 07:59 12/10/24 07:59 12/10/24 07:59 12/10/24 07:59 12/10/24 07:59
12/09/24 12/10/24 12/11/24
06:59 06:59 06:59
Actual Weight 415 lb 11.2 oz 426 lb 9.6 oz
12/10/24 04:25
12/10/24 04:25
Magnesium 2.0 mg/dl (1.6-2.3) 12/07/24 08:44
12/06/24
16:17
Glq-S-Ljfgfygyfia Pept 1020
Physical Exam
Constitutional: No acute distress and Other (obese)
EENT: Anicteric
Cardiovascular: Rhythm & rate is regular (distant heart sounds )
Respiratory: Respiratory effort normal, Lungs clear to auscul. and Other (decreased b/s b/l 2/2 body habitus )
GI: Soft
Neuro/Psych: AO x 3
Data Reviewed
-
Date of Service: December 10, 2024
EKG: Tracing Personally Visualized and interpreted (sr)
Echo: Report Reviewed by me
Labs: Labs Reviewed by me
[2024-12-10] MEDS: NOVOLOG FLEXPEN-LOW RESISTANCE SC (08:40)
[2024-12-10] MEDS: PACERONE 100 MG PO (09:58)
[2024-12-10] MEDS: PROTONIX 40 MG PO ×2 (09:58→19:49)
[2024-12-10] MEDS: KLONOPIN 1 MG PO ×2 (09:58→19:49)
[2024-12-10] MEDS: ELIQUIS 5 MG PO ×2 (09:58→19:49)
[2024-12-10] MEDS: VIBRAMYCIN 100 MG PO ×2 (09:58→19:49)
[2024-12-10] MEDS: LEXAPRO 10 MG PO (09:59)
[2024-12-10] MEDS: DESENEX/MITRAZOL/ZEASORB 1 APPLIC TOPICAL ×2 (09:59→19:49)
[2024-12-10] MEDS: LASIX 40 MG IV ×2 (09:59→16:23)
[2024-12-10] MEDS: DECADRON 6 MG PO (09:59)
[2024-12-10] MEDS: TRIAMCINOLONE ACETONIDE 0.1% CREAM 1 APPLIC TOPICAL ×2 (10:02→19:49)
[2024-12-10] MEDS: STERILE WATER FOR INJECTION 20 ML IV (10:08)
[2024-12-10] MEDS: ROCEPHIN 2000 MG IV (10:08)
[2024-12-10] MEDS: FARXIGA 10 MG PO (10:08)
--- NOTE | 2024-12-10 12:19 | W.PN.HOSP.TC ---
Today's Communication/Plan
-
continue IV Lasix
IV abx
PT/OT
wean O2
Assessment / Plan
Assessment / Plan
Assessment:
Acute hypoxic respiratory insufficiency on 2L
- wean O2 as able
Acute COVID-19 infection
- admitted last week discharged with oral steroids (completed 3 days of Remdesivir)
- now has completed 10 days steroids
- CXR repeat with improved GGO
- now off isolation - reviewed with infection prevention
- procal elevated; continue Rocephin/Doxy, day 3/7 - transition to orals at discharge
Paroxysmal atrial fibrillation
- continue amiodarone
- continue Coreg
- continue Eliquis
Chronic lower extremity lymphedema
acute on chronic HFpEF
- continue IV Lasix - requires intensive monitoring of I/Os, weights, lytes
- Cardiology following
Chronic toe wounds
Obesity
Chronic hypercarbia/hypoxemic respiratory failure secondary to obesity
Type 2 diabetes
- hold metformin
- Insulin sliding scale
- A1c is 6.0%
Constipation
Anxiety
- continue clonazepam
Chronic anemia
- hemoglobin stable
1.5 cm slightly high attenuation lesion in the inferior right frontal region, cannot exclude extra-axial.
- patient could not fit in MRI (body weight ok, but lateral body dimension would not support MRI
- CT head (with IV contrast): Homogeneously enhancing round mass in the anterior and inferior aspect of the right frontal lobe region, extra-axial, which very likely represents a meningioma.
- repeat outpatient surveillance imaging with PCP or Neurology outpatient
DVT ppx: Eliquis
Code: Full
Anticipated Discharge: > 48 hours
Subjective/Interval History
-
Date of Service: December 10, 2024
reports SOB is improving
weights now more accurate as patient on standing scale
Objective Data
-
Labs:
Laboratory Results
12/10/24
04:25
WBC 7.7
Hgb 9.0 L
Hct 28.5 L
Plt Count 203
Sodium 142
Potassium 3.8
Chloride 98
Carbon Dioxide 40 H
BUN 34 H
Creatinine 1.2
Glucose 140 H
Calcium 7.7 L
Vital Signs:
Vital Signs
Temp Pulse Resp BP Pulse Ox
98.2 F 65 17 139/76 98
12/10/24 07:59 12/10/24 09:59 12/10/24 07:59 12/10/24 09:59 12/10/24 07:59
I&O
12/09/24 12/10/24 12/11/24
06:59 06:59 06:59
Intake Total 2620 / 2620 1400 / 1400
Output Total 350 / 350
Balance 2270 / 2270 1400 / 1400
Physical Exam
-
General: No Apparent Distress and Morbidly Obese
HEENT: Normocephalic and Atraumatic
Respiratory: Crackles; Negative Wheezes
Cardiac: Regular Rhythm and S1/S2
GI: Soft
Neuro: AO x 3
Psych: Calm
Data Reviewed
-
Total Time Spent with Patient (in minutes): 51
Labs: Labs Reviewed by me
[2024-12-10 12:45] LABS: Glucose - Point of Care 152 mg/dl (70-99)
[2024-12-10] MEDS: NOVOLOG FLEXPEN-LOW RESISTANCE 1 UNITS SC ×2 (12:58→16:26)
--- NOTE | 2024-12-10 13:17 | W.PN.PUL3 ---
Today's Communication / Plan
-
Remains on 2L NC, but likely could be weaned to off
No new complaints
Diuresis transitioned to PO course per team
Would stop abx and observe off
OOB to chair
Discharge planning per team from our perspective
We will sign off at this time, please call with questions
Assessment
-
54-year-old severely morbidly obese male with a past medical history of A-fib on amiodarone/Eliquis, hypertension, hypercholesterolemia, JENNI on CPAP, bipolar disorder chronic lymphedema, toe wounds, and history of respiratory failure due to
aspiration and pleural effusion (2013) who presented with falling out of bed and unable to get up. He says that he called 911 once he was on the floor, but what was told to triage was that a travel writer had seen him on the floor and then patient had
low blood pressure and that is when EMS was called.. He is on Eliquis for history of A-fib. He was recently hospitalized here from 12/01 - 12/04/2024 due to COVID-19 pneumonia with hypoxia. He had groundglass opacities in both lungs, treated with
remdesivir and Decadron. He was discharged home with visiting nurses on 12/04. Patient was not short of breath at home, although he does have chronic shortness of breath but it is currently at its baseline. He did not strike his head when he fell.
He also denies any cough. EMS found him to be slightly hypoxic. Here in the ER he was afebrile to 97.5 �F, pulse rate 62, respiratory rate 22, BP 103/81 and saturating 90% on room air. He did drop to the mid 80s on room air and required 2 L/min
which improved his saturation to 98%. Initial labs showed Hb 9.6, blood gas showed chronic hypercapnia with pH neutral at 7.4, pCO2 52, serum bicarbonate level 31, BUN 27, proBNP 1020, troponin negative at <0.012, and procalcitonin 0.32. Head,
cervical spine and chest CT were performed, with no intracranial hemorrhage or infarction, no cervical spine fracture, and no evidence of a PE. There was an elevated/eventrated right hemidiaphragm. Given the elevated proBNP and his hypoxia, he was
given Lasix in the ER (60 mg IVP x 1). [facility] He has required between 1-2 L/min to maintain saturations >92%, and now pulmonary service consulted for additional management/recommendations.
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
esophageal strictures, morbid obesity with BMI >60, JENNI on CPAP, bipolar disorder, chronic lymphedema, toe wounds
Impression:
#Acute respiratory failure with hypoxia likely due to acute decompensated heart failure
#Chronic respiratory failure with hypercapnia and compensatory metabolic alkalosis � hypercapnia likely due to obesity hypoventilation syndrome
#Elevated proBNP of 1020 on 12/06/2024 (previously proBNP was 224 on 12/01/2024)
#Recent diagnosis of COVID-19 (diagnosed via SARS-CoV-2 antigen on 12/01/2024)
#Acute on chronic anemia (baseline Hb is roughly 10.5�12g/dL)
#Severe morbid obesity (BMI: 63.3)
#JENNI on CPAP
#Incidentally discovered 1.5 cm highly attenuated lesion in the inferior right frontal region, suspected to be meningioma (seen on CT head from 12/06/2024)
Plan:
Hypoxia is likely multifactorial from recent COVID-19 with a restrictive lung defect from his significant morbid obesity in the setting of an elevated right hemidiaphragm (which is mild) and mild bilateral pleural effusions suggestive of acute
decompensated heart failure
Wean to off as tolerated, reviewed with RT
He uses O2 at home intermittently, he remains on 2L NC but likely could be weaned to off
He was given 60 mg IV Lasix in the ER --> now on 40mg IV BID lasix per cardiology
Last echo was in September 2024 showing preserved biventricular function with LVEF at 55 to 60%, with moderately dilated LA, and no significant valvular disease --> consider rechecking a TTE
Cardiology consulted --> recs appreciated
Trend I/O, daily weight, low-sodium/fluid restricted diet
He will need PT/OT
Maintain SpO2 >90-94% with supplemental O2 and wean down as tolerated
If unable to wean down and/or resting SaO2 is <96% on room air, then check home O2 assessment prior to discharge
Continue with CPAP with sleep and prn during the day during naps
prn nebulized bronchodilators - not currently bronchospastic
Incentive spirometer encouraged q1hr while awake
Mucolytics if needed
He is continuing on Decadron 6 mg daily which he was discharged home on from prior hospitalization-- would wean to off as tolerated
Continue other home medications including amiodarone, Eliquis, Abilify, Klonopin, Lexapro, etc.
He needs to work on weight loss
Considering he carries a diagnosis of JENNI, he would qualify for Zepbound --> would recommend him seeing a weight loss physician after discharge
- Replete electrolytes with K>4, Mg>2
- Trend H/H and transfuse if needed to keep Hb>7g/dL; keep plt>20k, unless there is concern for bleeding then keep plt>50k
- Maintain euglycemia with goal BG >100 and <180
- Defer additional workup/management to hospitalist of incidentally discovered 1.5 cm lesion in the right frontal lobe, with suspected meningioma
- DVT ppx: Eliquis
Pulmonary service will continue to follow along. He says he has a pulmonary doctor through [facility] that he is going to follow-up with.
Data:
CTA Chest 12/06/2024: No evidence of central pulmonary embolism. Evaluation of more peripheral pulmonary arterial branches limited. Cardiomegaly.
Elevation/eventration of the right hemidiaphragm.
-----
Total time spent today was 45 minutes for this encounter. Time includes reviewing laboratory test/imaging results, reviewing pertinent medical records, obtaining and reviewing medical history, performing an appropriate exam, ordering medications,
tests and procedures. Time also includes documentation of this encounter, coordinating patient care and communicating with other healthcare professionals. Total time does not include separately billed tests performed on this date of service.
Subjective Data
-
Date of Service:
Date of Service: December 10, 2024
Chief Complaint: Pulmonary Follow Up
Subjective:
No new complaints, sitting in chair
Remains on 2L NC
Objective Data
Data Reviewed
Vital Signs / I&O / Oxygen:
Vital Signs
Temp Pulse Resp BP Pulse Ox
98.2 F 65 17 139/76 98
12/10/24 07:59 12/10/24 09:59 12/10/24 07:59 12/10/24 09:59 12/10/24 07:59
Intake and Output
12/09/24 12/10/24 12/11/24
06:59 06:59 06:59
Intake Total 2620 / 2620 1400 / 1400
Output Total 350 / 350
Balance 2270 / 2270 1400 / 1400
SaO2 98
Nasal Cannula flow liters per 4
minute
Physical Exam
General: Respiratory Distress (negative), Comfortable, Chills (negative), Sweats (negative) and Other (Morbidly obese male in NAD)
HEENT: Normocephalic, Anicteric and Other (Thick neck)
Cardiovascular: S1-S2, Regular Rhythm, Peripheral Edema (Trace lower extremity edema bilaterally) and Other (Distant cardiac sounds due to body habitus)
Respiratory: Wheeze (negative), Crackles (negative), Rhonchi (negative), Non-Labored Respirations and Other (Diminished breath sounds due to body habitus)
GI: Soft, Distended (Significant abdominal obesity), Non Tender and Normal Bowel Sounds
Neurology: AO x 3 and Tremors (negative)
Skin: Warm, Dry, Cyanosis (negative) and Jaundice (negative)
Labs/Micro/Reports
Lab Data
12/10/24 04:25
12/10/24 04:25
[2024-12-10 15:27] VITALS: BP 134/76
[2024-12-10 16:27] LABS: Glucose - Point of Care 199 mg/dl (70-99)
[2024-12-10] MEDS: ABILIFY 5 MG PO (21:33)
[2024-12-10] MEDS: REMERON 15 MG PO (21:33)
[2024-12-10] MEDS: PRAVACHOL 40 MG PO (21:33)
[2024-12-10 21:42] LABS: Glucose - Point of Care 187 mg/dl (70-99)
[2024-12-10 22:10] VITALS: PULSE 80
[2024-12-10 23:05] VITALS: BP 125/68
[2024-12-11] VITALS (8 sets, daily range): BP systolic 124–159; BP diastolic 71–93; PULSE 70–81; O2SAT 93–94; BMI 63.0
[2024-12-11 06:15] LABS: Hematocrit 29.3 % (39.0-52.0); Hemoglobin 9.2 g/dL (13.0-18.0); Mean Corp Hgb Conc. 31.4 g/dL (33.0-37.0); Mean Corpuscular Hgb 30.3 pg (27.0-31.0); Mean Corpuscular Volume 96.4 fL (80.0-94.0); Platelet Count 189 10^3/uL (130-400); Red Blood Cell Count 3.04 10^6/uL (4.70-6.10); Red Cell Dist. Width 19.2 % (11.5-14.5); White Blood Cell Count 7.4 10^3/uL (4.8-10.8)
[2024-12-11 06:39] LABS: Blood Urea Nitrogen 33 mg/dl (9-20); Calcium 7.8 mg/dl (8.4-10.2); Carbon Dioxide 40 mmol/L (22-30); Chloride 99 mmol/L (98-107); Estimated Creatinine Clearance > 125 ml/min; Glucose 214 mg/dl (70-99); Potassium 4.3 mmol/L (3.5-5.1); Sodium 142 mmol/L (135-145); eGFR > 60.00
[2024-12-11 07:32] LABS: Glucose - Point of Care 194 mg/dl (70-99)
[2024-12-11] MEDS: DESENEX/MITRAZOL/ZEASORB 1 APPLIC TOPICAL (07:54)
[2024-12-11] MEDS: FARXIGA 10 MG PO (07:54)
[2024-12-11] MEDS: VIBRAMYCIN 100 MG PO ×2 (07:54→21:15)
[2024-12-11] MEDS: PROTONIX 40 MG PO ×2 (07:54→21:15)
[2024-12-11] MEDS: PACERONE 100 MG PO (07:54)
[2024-12-11] MEDS: LASIX 40 MG IV ×2 (07:55→15:56)
[2024-12-11] MEDS: ELIQUIS 5 MG PO ×2 (07:55→21:15)
[2024-12-11] MEDS: LEXAPRO 10 MG PO (07:55)
[2024-12-11] MEDS: KLONOPIN 1 MG PO ×2 (07:55→21:15)
[2024-12-11] MEDS: FLUSH (NSS) 2 FLUSH IV ×3 (07:55→15:53)
[2024-12-11] MEDS: NOVOLOG FLEXPEN-LOW RESISTANCE 1 UNITS SC (07:56)
--- NOTE | 2024-12-11 09:02 | W.PN.CD ---
Today's Communication / Plan
-
continue IV lasix
continue farxiga
add aldactone
tele
Impression / Plan
-
54-year-old man with recent COVID infection, HFpEF, JENNI, morbid obesity, paroxysmal atrial fibrillation on amiodarone and Eliquis who presents with weakness, found to be hypoxic in the ER. Cardiology is consulted due to concern for CHF exacerbation.
Acute hypoxic respiratory failure: improved
-Likely multifactorial in the setting of recent COVID infection, pna, JENNI, and obesity hypoventilation. There may be a component of CHF but he is a very difficult volume exam. Tiny right pleural effusion on chest CT.
-Cont diuresis 40 mg IV lasix bid
-He is a very difficult volume exam, so we will need to trend weights closely and keep an eye on creatinine with diuresis
-Please obtain daily standing weights
-Pulmonary following for recent COVID and chronic lung disease
Acute on chronic HFpEF: severe, requiring hospitalization and close monitoring of labs, tele
-TTE 12/09/34: grossly normal LVEF, TDS even with contrast
-As above, diurese with IV Lasix and establish dry weight prior to discharge
-Started Farxiga 10 mg daily this admission
-add aldactone 25mg daily
Paroxysmal atrial fibrillation
-Continue home amiodarone 100 mg daily and Eliquis 5 mg twice daily
Subjective: Continues to feel better, although still with significant edema present
Physical Exam
Vital Signs/Labs
Vital Signs
Temp Pulse Resp BP Pulse Ox
98.9 F 68 16 159/84 94
12/11/24 07:31 12/11/24 07:54 12/11/24 07:31 12/11/24 07:54 12/11/24 07:31
12/10/24 12/11/24 12/12/24
06:59 06:59 06:59
Actual Weight 193.503 kg 193.287 kg
12/11/24 05:59
12/11/24 05:59
Magnesium 2.0 mg/dl (1.6-2.3) 12/07/24 08:44
12/06/24
16:17
Qzw-X-Codlaajucpz Pept 1020
Physical Exam
Constitutional: No acute distress and Comfortable
EENT: Moist mucous membranes
Cardiovascular: Rhythm & rate is regular, Systolic murmur absent and Pedal edema present
Respiratory: Respiratory effort normal and Lungs clear to auscul.
Neuro/Psych: AO x 3
Data Reviewed
-
Date of Service: December 11, 2024
EKG: Other (tele ordered)
Echo: Report Reviewed by me
Labs: Labs Reviewed by me
[2024-12-11 10:49] LABS: Glucose - Point of Care 147 mg/dl (70-99)
--- NOTE | 2024-12-11 10:50 | W.PN.HOSP.TC ---
Today's Communication/Plan
-
Monitor vitals
See plan
Continue with IV diuresis
Continue farxiga
PT/OT
Assessment / Plan
Assessment / Plan
Assessment:
Acute hypoxic respiratory insufficiency on 2L
- wean O2 as able
Acute COVID-19 infection
- admitted last week discharged with oral steroids (completed 3 days of Remdesivir)
- now has completed 10 days steroids
- CXR repeat with improved GGO
- now off isolation - reviewed with infection prevention
- procal elevated; continue Rocephin/Doxy, day 4/7 - transition to orals at discharge
Paroxysmal atrial fibrillation
- continue amiodarone
- continue Coreg
- continue Eliquis
Chronic lower extremity lymphedema
acute on chronic HFpEF
- continue IV Lasix - requires intensive monitoring of I/Os, weights, lytes
- Cardiology following
on farxiga
Chronic toe wounds
Obesity
Chronic hypercarbia/hypoxemic respiratory failure secondary to obesity
Type 2 diabetes
- hold metformin
- Insulin sliding scale
- A1c is 6.0%
Constipation
Anxiety
- continue clonazepam
Chronic anemia
- hemoglobin stable
1.5 cm slightly high attenuation lesion in the inferior right frontal region, cannot exclude extra-axial.
- patient could not fit in MRI (body weight ok, but lateral body dimension would not support MRI
- CT head (with IV contrast): Homogeneously enhancing round mass in the anterior and inferior aspect of the right frontal lobe region, extra-axial, which very likely represents a meningioma.
- repeat outpatient surveillance imaging with PCP or Neurology outpatient
Morbidly obese secondary to excess calories
DVT ppx: Eliquis
Code: Full
General: No Apparent Distress and Morbidly Obese
HEENT: Normocephalic and Atraumatic
Respiratory: Crackles; Negative Wheezes
Cardiac: Regular Rhythm and S1/S2
GI: Soft
Neuro: AO x 3
Psych: Calm
Anticipated Discharge: Within 24 hours
Subjective/Interval History
-
Date of Service: December 11, 2024
denies pain
Objective Data
-
Labs:
Laboratory Results
12/11/24
05:59
WBC 7.4
Hgb 9.2 L
Hct 29.3 L
Plt Count 189
Sodium 142
Potassium 4.3
Chloride 99
Carbon Dioxide 40 H
BUN 33 H
Creatinine 1.1
Glucose 214 H
Calcium 7.8 L
Vital Signs:
Vital Signs
Temp Pulse Resp BP Pulse Ox
98.9 F 68 16 159/84 94
12/11/24 07:31 12/11/24 07:54 12/11/24 07:31 12/11/24 07:54 12/11/24 08:19
I&O
12/10/24 12/11/24 12/12/24
06:59 06:59 06:59
Intake Total 1400 / 1400 1320 / 1320
Balance 1400 / 1400 1320 / 1320
[2024-12-11] MEDS: STERILE WATER FOR INJECTION 20 ML IV (10:51)
[2024-12-11] MEDS: ROCEPHIN 2000 MG IV (10:52)
[2024-12-11] MEDS: TRIAMCINOLONE ACETONIDE 0.1% CREAM 1 APPLIC TOPICAL ×2 (10:53→21:16)
[2024-12-11] MEDS: ALDACTONE 25 MG PO (10:54)
[2024-12-11] MEDS: NOVOLOG FLEXPEN-LOW RESISTANCE SC (10:54)
--- NOTE | 2024-12-11 14:47 | CM ---
Met with patient
Continue with IV diuresis
[facility] accepted, left message for Cynthia Bauer liaison [phone] regarding bed availability
Will need to obtain insurance authorization
IMM n/a
PLAN: SNF, pending bed availability
transportation forms on chart
[2024-12-11] MEDS: NOVOLOG FLEXPEN-LOW RESISTANCE 3 UNITS SC (16:20)
[2024-12-11 16:21] LABS: Glucose - Point of Care 253 mg/dl (70-99)
[2024-12-11] MEDS: REMERON 15 MG PO (21:15)
[2024-12-11] MEDS: ABILIFY 5 MG PO (21:15)
[2024-12-11] MEDS: PRAVACHOL 40 MG PO (21:15)
[2024-12-11 22:25] LABS: Glucose - Point of Care 120 mg/dl (70-99)
[2024-12-12] VITALS (7 sets, daily range): BP systolic 117–133; BP diastolic 63–80; PULSE 89; BMI 63.0
[2024-12-12] MEDS: DESENEX/MITRAZOL/ZEASORB 1 APPLIC TOPICAL ×3 (00:22→21:35)
--- NOTE | 2024-12-12 03:33 | PTCARENOTE ---
Pt refuses to sleep w/CPAP on. Uncooperative at times, not ringing for assist and setting off bed alarm.
[2024-12-12 05:18] LABS: % Basophils 0.2 % (0-2); % Eosinophils 0.9 % (0-6); % Immature Granulocytes 1.2 % (0-0.5); % Lymphocytes 18.4 % (20.5-51.1); % Monocytes 8.1 % (1.7-9.3); % Neutrophils 71.2 % (42.2-75.2); Absolute Eosinophils 0.1 10^3/uL (0-0.7); Absolute Immature Granulocytes 0.1 10^3/uL (0-0.05); Absolute Lymphocytes 1.5 10^3/uL (1.2-3.4); Absolute Monocytes 0.7 10^3/uL (0.1-0.6); Absolute Neutrophils 5.7 10^3/uL (1.4-6.5); Hematocrit 28.6 % (39.0-52.0); Hemoglobin 9.2 g/dL (13.0-18.0); Mean Corp Hgb Conc. 32.2 g/dL (33.0-37.0); Mean Corpuscular Hgb 31.2 pg (27.0-31.0); Mean Corpuscular Volume 96.9 fL (80.0-94.0); Mean Platelet Volume 10.8 fL (7.4-10.4); Nucleated Red Blood Cells % 0 % (-); Platelet Count 198 10^3/uL (130-400); Red Blood Cell Count 2.95 10^6/uL (4.70-6.10); Red Cell Dist. Width 18.9 % (11.5-14.5); White Blood Cell Count 8.1 10^3/uL (4.8-10.8)
[2024-12-12 05:38] LABS: Blood Urea Nitrogen 28 mg/dl (9-20); Calcium 7.4 mg/dl (8.4-10.2); Chloride 97 mmol/L (98-107); Estimated Creatinine Clearance > 125 ml/min; Glucose 105 mg/dl (70-99); Potassium 3.6 mmol/L (3.5-5.1); Sodium 140 mmol/L (135-145); eGFR > 60.00
[2024-12-12 05:50] LABS: Carbon Dioxide 34 mmol/L (22-30)
--- NOTE | 2024-12-12 07:47 | W.PN.CD ---
Today's Communication / Plan
-
Increase lasix to 80 bid
Impression / Plan
-
54-year-old man with recent COVID infection, HFpEF, JENNI, morbid obesity, paroxysmal atrial fibrillation on amiodarone and Eliquis who presents with weakness, found to be hypoxic in the ER. Cardiology is consulted due to concern for CHF exacerbation.
Acute hypoxic respiratory failure: improved
-Likely multifactorial in the setting of recent COVID infection, pna, JENNI, and obesity hypoventilation. There may be a component of CHF but he is a very difficult volume exam. Tiny right pleural effusion on chest CT.
-Cont diuresis weight has been stable will increase lasix to 80 mg IV lasix bid
-He is a very difficult volume exam, so we will need to trend weights closely and keep an eye on creatinine with diuresis
-Please obtain daily standing weights
-Pulmonary following for recent COVID and chronic lung disease
Acute on chronic HFpEF: severe, requiring hospitalization and close monitoring of labs, tele
-TTE 12/09/34: grossly normal LVEF, TDS even with contrast
-As above, diurese with IV Lasix and establish dry weight prior to discharge
-Started Farxiga 10 mg daily this admission
-cont aldactone 25mg daily
Paroxysmal atrial fibrillation
-Continue home amiodarone 100 mg daily and Eliquis 5 mg twice daily
morbid obesity affecting all aspects of care
Subjective: Continues to feel better will increase lasix
Physical Exam
Vital Signs/Labs
Vital Signs
Temp Pulse Resp BP Pulse Ox
97.8 F 64 18 132/76 89
12/12/24 03:05 12/12/24 03:05 12/12/24 03:05 12/12/24 03:05 12/12/24 03:05
12/11/24 12/12/24 12/13/24
06:59 06:59 06:59
Actual Weight 426 lb 2 oz 426 lb 4.8 oz
12/12/24 04:36
12/12/24 04:36
Magnesium 2.0 mg/dl (1.6-2.3) 12/07/24 08:44
12/06/24
16:17
Ura-C-Yqikgdauchg Pept 1020
Physical Exam
Constitutional: No acute distress and Other (obese)
Cardiovascular: Rhythm & rate is regular and Pedal edema present
Respiratory: Respiratory effort normal, Lungs clear to auscul. and Other (distant lung sounds)
GI: Soft
Neuro/Psych: AO x 3
Data Reviewed
-
Date of Service: December 12, 2024
EKG: Tracing Personally Visualized and interpreted (sr)
Echo: Report Reviewed by me
Labs: Labs Reviewed by me
[2024-12-12 08:39] LABS: Glucose - Point of Care 212 mg/dl (70-99)
[2024-12-12] MEDS: NOVOLOG FLEXPEN-LOW RESISTANCE 2 UNITS SC (09:06)
[2024-12-12] MEDS: LASIX 80 MG IV ×2 (09:14→16:44)
[2024-12-12] MEDS: FARXIGA 10 MG PO (09:14)
[2024-12-12] MEDS: PACERONE 100 MG PO (09:14)
[2024-12-12] MEDS: ELIQUIS 5 MG PO ×2 (09:14→21:36)
[2024-12-12] MEDS: PROTONIX 40 MG PO ×2 (09:14→21:36)
[2024-12-12] MEDS: ALDACTONE 25 MG PO (09:14)
[2024-12-12] MEDS: LEXAPRO 10 MG PO (09:14)
[2024-12-12] MEDS: VIBRAMYCIN 100 MG PO ×2 (09:14→21:36)
[2024-12-12] MEDS: KLONOPIN 1 MG PO ×2 (09:14→21:36)
[2024-12-12] MEDS: TRIAMCINOLONE ACETONIDE 0.1% CREAM 1 APPLIC TOPICAL ×2 (09:15→21:37)
[2024-12-12] MEDS: ROCEPHIN 2000 MG IV (09:18)
[2024-12-12] MEDS: STERILE WATER FOR INJECTION 20 ML IV (09:18)
--- NOTE | 2024-12-12 09:35 | CM ---
Spoke with Cynthia Bauer liaison for [facility], states bed will be available tomorrow
will need update PT/OT notes for ins auth - notified Chanel in therapy
Karey Carin NPI #:[id number]
Dr. Ino Braga NPI #: [id number]
Report #: [phone] Fax #: [phone]
CM made Marie aware [facility] updated along with CPAP settings, patient will provide his CPAP to facility
PLAN: [facility], will need to obtain ins auth once PT/OT eval today
Report #: [phone]
Fax #: [phone]
transportation forms on chart
--- NOTE | 2024-12-12 10:29 | W.PN.HOSP.TC ---
Today's Communication/Plan
-
monitor vitals
see plan
cw IV lasix; increased today
advised patient not to order food from outside
Assessment / Plan
Assessment / Plan
Assessment:
Acute hypoxic respiratory insufficiency on 2L
- wean O2 as able
Acute COVID-19 infection
- admitted last week discharged with oral steroids (completed 3 days of Remdesivir)
- now has completed 10 days steroids
- CXR repeat with improved GGO
- now off isolation - reviewed with infection prevention
- procal elevated; continue Rocephin/Doxy, day 5/7 - transition to orals at discharge
Paroxysmal atrial fibrillation
- continue amiodarone
- continue Coreg
- continue Eliquis
Chronic lower extremity lymphedema
acute on chronic HFpEF
- continue IV Lasix - requires intensive monitoring of I/Os, weights, lytes
- Cardiology following
on farxiga
Lasix increased today
Discussed with nursing, patient has been ordering food from outside which is likely also contributing to his worsening edema. Advised patient not to order food from outside.
Chronic toe wounds
Obesity
Chronic hypercarbia/hypoxemic respiratory failure secondary to obesity
Type 2 diabetes
- hold metformin
- Insulin sliding scale
- A1c is 6.0%
Constipation
Anxiety
- continue clonazepam
Chronic anemia
- hemoglobin stable
1.5 cm slightly high attenuation lesion in the inferior right frontal region, cannot exclude extra-axial.
- patient could not fit in MRI (body weight ok, but lateral body dimension would not support MRI
- CT head (with IV contrast): Homogeneously enhancing round mass in the anterior and inferior aspect of the right frontal lobe region, extra-axial, which very likely represents a meningioma.
- repeat outpatient surveillance imaging with PCP or Neurology outpatient
Morbidly obese secondary to excess calories
DVT ppx: Eliquis
Code: Full
General: No Apparent Distress and Morbidly Obese
HEENT: Normocephalic and Atraumatic
Respiratory: Crackles; Negative Wheezes
Cardiac: Regular Rhythm and S1/S2
GI: Soft
Neuro: AO x 3
Psych: Calm
Anticipated Discharge: 24 - 48 hours
Subjective/Interval History
-
Date of Service: December 12, 2024
denies pain
Objective Data
-
Labs:
Laboratory Results
12/12/24
04:36
WBC 8.1
Hgb 9.2 L
Hct 28.6 L
Plt Count 198
Sodium 140
Potassium 3.6
Chloride 97 L
Carbon Dioxide 34 H
BUN 28 H
Creatinine 1.1
Glucose 105 H
Calcium 7.4 L
Vital Signs:
Vital Signs
Temp Pulse Resp BP Pulse Ox
98.0 F 77 18 133/80 93
12/12/24 07:20 12/12/24 09:14 12/12/24 07:20 12/12/24 09:14 12/12/24 07:20
I&O
12/11/24 12/12/24 12/13/24
06:59 06:59 06:59
Intake Total 1320 / 1320 1320 / 1320
Balance 1320 / 1320 1320 / 1320
[2024-12-12 12:31] LABS: Glucose - Point of Care 128 mg/dl (70-99)
[2024-12-12] MEDS: NOVOLOG FLEXPEN-LOW RESISTANCE SC (13:02)
--- NOTE | 2024-12-12 13:54 | PTCARENOTE ---
Pt has been non compliant with call hernández. He is in for treatment post fall. He does have a bed and chair alarm. He martin sbeen educated repeatedly on the use of the call hernández. The call hernández is within his arm reach. He still does not use it. The pt was
advised by RN and MD that he is not to call door dash for his meals. He has an appropriate diet in the hospital to help with his disease process. The pt has repeatedly urinated on the floor even after advising him to use the bedside commode and
urinal. He is uncooperative. I spoke to his who said 'he is not compliant at home either'.
[2024-12-12 16:44] LABS: Glucose - Point of Care 169 mg/dl (70-99)
[2024-12-12] MEDS: NOVOLOG FLEXPEN-LOW RESISTANCE 1 UNITS SC (16:47)
[2024-12-12] MEDS: ABILIFY 5 MG PO (21:35)
[2024-12-12] MEDS: PRAVACHOL 40 MG PO (21:36)
[2024-12-12] MEDS: REMERON 15 MG PO (21:36)
[2024-12-12 22:00] LABS: Glucose - Point of Care 155 mg/dl (70-99)
[2024-12-13] VITALS (7 sets, daily range): BP systolic 116–139; BP diastolic 65–88; PULSE 84; BMI 62.0
[2024-12-13 06:36] LABS: % Basophils 0.2 % (0-2); % Eosinophils 1.7 % (0-6); % Lymphocytes 15.9 % (20.5-51.1); % Monocytes 6.1 % (1.7-9.3); % Neutrophils 75.1 % (42.2-75.2); Absolute Eosinophils 0.2 10^3/uL (0-0.7); Absolute Immature Granulocytes 0.1 10^3/uL (0-0.05); Absolute Lymphocytes 1.4 10^3/uL (1.2-3.4); Absolute Monocytes 0.5 10^3/uL (0.1-0.6); Absolute Neutrophils 6.5 10^3/uL (1.4-6.5); Hematocrit 30.3 % (39.0-52.0); Hemoglobin 9.9 g/dL (13.0-18.0); Mean Corp Hgb Conc. 32.7 g/dL (33.0-37.0); Mean Corpuscular Hgb 31.2 pg (27.0-31.0); Mean Corpuscular Volume 95.6 fL (80.0-94.0); Mean Platelet Volume 10.5 fL (7.4-10.4); Nucleated Red Blood Cells % 0 % (-); Platelet Count 218 10^3/uL (130-400); Red Blood Cell Count 3.17 10^6/uL (4.70-6.10); Red Cell Dist. Width 18.7 % (11.5-14.5); White Blood Cell Count 8.7 10^3/uL (4.8-10.8)
[2024-12-13 06:44] LABS: Blood Urea Nitrogen 31 mg/dl (9-20); Calcium 8.3 mg/dl (8.4-10.2); Chloride 93 mmol/L (98-107); Estimated Creatinine Clearance 108 ml/min; Glucose 131 mg/dl (70-99); Potassium 3.7 mmol/L (3.5-5.1); Sodium 141 mmol/L (135-145); eGFR > 60.00
[2024-12-13 07:00] LABS: Carbon Dioxide 33 mmol/L (22-30)
[2024-12-13 07:52] LABS: Glucose - Point of Care 131 mg/dl (70-99)
--- NOTE | 2024-12-13 08:21 | W.PN.CD ---
Today's Communication / Plan
-
Continue 80 mg IV Lasix twice daily
Assess for p.o. diuretics tomorrow
Impression / Plan
-
54-year-old man with recent COVID infection, HFpEF, JENNI, morbid obesity, paroxysmal atrial fibrillation on amiodarone and Eliquis who presents with weakness, found to be hypoxic in the ER. Cardiology is consulted due to concern for CHF exacerbation.
Respiratory Care Instructor: Dr. Keith at [facility]
Acute hypoxic respiratory failure: improved
-Likely multifactorial in the setting of recent COVID infection, pna, JENNI, and obesity hypoventilation. There may be a component of CHF but he is a very difficult volume exam. Tiny right pleural effusion on chest CT.
-Cont 80 mg IV lasix bid (home: 40 mg BID). Unknown dry weight. He is now on room air and symptomatically improved. Assess for switch to p.o. diuresis tomorrow.
-Please obtain daily standing weights
-Pulmonary has signed off
Acute on chronic HFpEF: severe, requiring hospitalization and close monitoring of labs, tele
-TTE 12/09/34: grossly normal LVEF, TDS even with contrast
-As above, diurese with IV Lasix and establish dry weight prior to discharge
-Started Farxiga 10 mg daily this admission
-cont aldactone 25mg daily
Paroxysmal atrial fibrillation
-In sinus here
-Continue home amiodarone 100 mg daily and Eliquis 5 mg twice daily
morbid obesity affecting all aspects of care
Subjective: He is off oxygen. Feeling okay. He is not sure what his dry weight is.
Physical Exam
Vital Signs/Labs
Vital Signs
Temp Pulse Resp BP Pulse Ox
98.3 F 71 18 116/69 93
12/13/24 07:44 12/13/24 07:44 12/13/24 07:44 12/13/24 07:44 12/13/24 07:44
12/12/24 12/13/24 12/14/24
06:59 06:59 06:59
Actual Weight 193.23 kg 190.237 kg
12/13/24 05:47
12/13/24 05:47
Magnesium 2.0 mg/dl (1.6-2.3) 12/07/24 08:44
12/06/24
16:17
Ibw-I-Vmzlkvcijtg Pept 1020
Physical Exam
Constitutional: No acute distress, Comfortable and Other (Morbid obesity)
Cardiovascular: Rhythm & rate is regular, Pedal edema present, S1S2 is normal and Murmur/rub/gallop absent
Respiratory: Respiratory effort normal and Lungs clear to auscul.
Data Reviewed
-
Date of Service: December 13, 2024
Medical Decision Making: Reviewed Test Results, Independent Historian Assessment, Test Interpretation and Review of Case with other Provider
EKG: Tracing Personally Visualized and interpreted
Echo: Report Reviewed by me
Labs: Labs Reviewed by me
[2024-12-13] MEDS: NOVOLOG FLEXPEN-LOW RESISTANCE SC ×3 (09:13→17:04)
[2024-12-13] MEDS: FARXIGA 10 MG PO (09:14)
[2024-12-13] MEDS: PACERONE 100 MG PO (09:14)
[2024-12-13] MEDS: ELIQUIS 5 MG PO ×2 (09:14→19:59)
[2024-12-13] MEDS: LEXAPRO 10 MG PO (09:15)
[2024-12-13] MEDS: KLONOPIN 1 MG PO ×2 (09:15→19:59)
[2024-12-13] MEDS: LASIX 80 MG IV ×2 (09:15→16:47)
[2024-12-13] MEDS: VIBRAMYCIN 100 MG PO ×2 (09:15→19:59)
[2024-12-13] MEDS: PROTONIX 40 MG PO ×2 (09:15→19:59)
[2024-12-13] MEDS: ALDACTONE 25 MG PO (09:15)
[2024-12-13] MEDS: ROCEPHIN 2000 MG IV (09:17)
[2024-12-13] MEDS: STERILE WATER FOR INJECTION 20 ML IV (09:17)
[2024-12-13] MEDS: DESENEX/MITRAZOL/ZEASORB 1 APPLIC TOPICAL ×2 (09:17→20:00)
[2024-12-13] MEDS: TRIAMCINOLONE ACETONIDE 0.1% CREAM 1 APPLIC TOPICAL ×2 (09:29→20:03)
--- NOTE | 2024-12-13 10:45 | W.PN.HOSP.TC ---
Today's Communication/Plan
-
Monitor vital signs see plan
Discussed with cardiology, continue with IV diuresis today
Hopeful transition to p.o. diuretics and discharge tomorrow
CM aware of DC planning
last day abx tomorrow
Assessment / Plan
Assessment / Plan
Assessment:
Acute hypoxic respiratory insufficiency on 2L
- wean O2 as able
Acute COVID-19 infection
- admitted last week discharged with oral steroids (completed 3 days of Remdesivir)
- now has completed 10 days steroids
- CXR repeat with improved GGO
- now off isolation - reviewed with infection prevention
- procal elevated; Switch antibiotics to cefdinir and Doxy; last day 12/14
Paroxysmal atrial fibrillation
- continue amiodarone
- continue Coreg
- continue Eliquis
Chronic lower extremity lymphedema
acute on chronic HFpEF
- continue IV Lasix - requires intensive monitoring of I/Os, weights, lytes
- Cardiology following
on farxiga
Lasix increased to 80mg BID; Discussed with cardiology, hopeful for p.o. diuretics tomorrow. Spoke with rn case mgr to start discharge planning over the weekend
Discussed with nursing, patient has been ordering food from outside which is likely also contributing to his worsening edema. Advised patient not to order food from outside.
Chronic toe wounds
Obesity
Chronic hypercarbia/hypoxemic respiratory failure secondary to obesity
Type 2 diabetes
- hold metformin
- Insulin sliding scale
- A1c is 6.0%
Constipation
Anxiety
- continue clonazepam
Chronic anemia
- hemoglobin stable
1.5 cm slightly high attenuation lesion in the inferior right frontal region, cannot exclude extra-axial.
- patient could not fit in MRI (body weight ok, but lateral body dimension would not support MRI
- CT head (with IV contrast): Homogeneously enhancing round mass in the anterior and inferior aspect of the right frontal lobe region, extra-axial, which very likely represents a meningioma.
- repeat outpatient surveillance imaging with PCP or Neurology outpatient
Morbidly obese secondary to excess calories
DVT ppx: Eliquis
Code: Full
General: No Apparent Distress and Morbidly Obese
HEENT: Normocephalic and Atraumatic
Respiratory: Crackles; Negative Wheezes
Cardiac: Regular Rhythm and S1/S2
GI: Soft
Neuro: AO x 3
Psych: Calm
Anticipated Discharge: Within 24 hours
Subjective/Interval History
-
Date of Service: December 13, 2024
Denies chest pain
Objective Data
-
Labs:
Laboratory Results
12/13/24
05:47
WBC 8.7
Hgb 9.9 L
Hct 30.3 L
Plt Count 218
Sodium 141
Potassium 3.7
Chloride 93 L
Carbon Dioxide 33 H
BUN 31 H
Creatinine 1.3
Glucose 131 H
Calcium 8.3 L
Vital Signs:
Vital Signs
Temp Pulse Resp BP Pulse Ox
98.3 F 71 18 116/69 93
12/13/24 07:44 12/13/24 09:15 12/13/24 07:44 12/13/24 09:15 12/13/24 07:44
I&O
12/12/24 12/13/24 12/14/24
06:59 06:59 06:59
Intake Total 1320 / 1320 1380 / 1380
Balance 1320 / 1320 1380 / 1380
--- NOTE | 2024-12-13 11:58 | CM ---
Addendum entered by Tiffanie Pham 12/13/24 12:19:
CM spoke with via phone; patient's preference is [facility]
If unable to secure a SNF bed at an alternative facility; AUTH will need to be submitted on Monday for discharge to [facility] on Monday
Original Note:
SALOMON spoke with Cynthia Bauer , liaison for [facility]; she reported that bed will not be available until Monday
[2024-12-13 12:56] LABS: Glucose - Point of Care 127 mg/dl (70-99)
[2024-12-13 16:54] LABS: Glucose - Point of Care 149 mg/dl (70-99)
[2024-12-13 21:39] LABS: Glucose - Point of Care 128 mg/dl (70-99)
[2024-12-13] MEDS: REMERON 15 MG PO (22:53)
[2024-12-13] MEDS: ABILIFY 5 MG PO (22:53)
[2024-12-13] MEDS: PRAVACHOL 40 MG PO (22:54)
[2024-12-14 03:15] VITALS: BP 126/85
[2024-12-14 04:20] VITALS: BMI 60.8
[2024-12-14 06:47] LABS: % Basophils 0.4 % (0-2); % Immature Granulocytes 0.8 % (0-0.5); % Lymphocytes 14.3 % (20.5-51.1); % Monocytes 5.5 % (1.7-9.3); Absolute Eosinophils 0.2 10^3/uL (0-0.7); Absolute Immature Granulocytes 0.1 10^3/uL (0-0.05); Absolute Lymphocytes 1.1 10^3/uL (1.2-3.4); Absolute Monocytes 0.4 10^3/uL (0.1-0.6); Absolute Neutrophils 5.9 10^3/uL (1.4-6.5); Hematocrit 29.8 % (39.0-52.0); Hemoglobin 9.6 g/dL (13.0-18.0); Mean Corp Hgb Conc. 32.2 g/dL (33.0-37.0); Mean Corpuscular Hgb 31.1 pg (27.0-31.0); Mean Corpuscular Volume 96.4 fL (80.0-94.0); Mean Platelet Volume 9.9 fL (7.4-10.4); Nucleated Red Blood Cells % 0 % (-); Platelet Count 197 10^3/uL (130-400); Red Blood Cell Count 3.09 10^6/uL (4.70-6.10); Red Cell Dist. Width 18.7 % (11.5-14.5); White Blood Cell Count 7.6 10^3/uL (4.8-10.8)
[2024-12-14 07:28] LABS: Blood Urea Nitrogen 29 mg/dl (9-20); Calcium 8.6 mg/dl (8.4-10.2); Chloride 93 mmol/L (98-107); Estimated Creatinine Clearance 106 ml/min; Glucose 145 mg/dl (70-99); Potassium 3.2 mmol/L (3.5-5.1); Sodium 139 mmol/L (135-145); eGFR > 60.00
[2024-12-14 07:31] LABS: Glucose - Point of Care 150 mg/dl (70-99)
[2024-12-14 07:39] LABS: Carbon Dioxide 34 mmol/L (22-30)
[2024-12-14 07:45] VITALS: BP 134/81
[2024-12-14] MEDS: NOVOLOG FLEXPEN-LOW RESISTANCE 1 UNITS SC (09:32)
[2024-12-14] MEDS: LASIX 80 MG IV (09:33)
[2024-12-14] MEDS: OMNICEF 300 MG PO ×2 (09:34→19:22)
[2024-12-14] MEDS: PACERONE 100 MG PO (09:34)
[2024-12-14] MEDS: DESENEX/MITRAZOL/ZEASORB 1 APPLIC TOPICAL ×2 (09:34→19:23)
[2024-12-14] MEDS: ALDACTONE 25 MG PO (09:35)
[2024-12-14] MEDS: VIBRAMYCIN 100 MG PO ×2 (09:35→19:22)
[2024-12-14] MEDS: LEXAPRO 10 MG PO (09:35)
[2024-12-14] MEDS: ELIQUIS 5 MG PO ×2 (09:35→19:22)
[2024-12-14] MEDS: FARXIGA 10 MG PO (09:35)
[2024-12-14] MEDS: KLONOPIN 1 MG PO ×2 (09:35→19:22)
[2024-12-14] MEDS: PROTONIX 40 MG PO ×2 (09:35→19:22)
[2024-12-14] MEDS: TRIAMCINOLONE ACETONIDE 0.1% CREAM 1 APPLIC TOPICAL ×2 (09:36→19:23)
[2024-12-14] MEDS: KLOR-CON 40 MEQ PO (10:42)
[2024-12-14 10:51] LABS: Glucose - Point of Care 111 mg/dl (70-99)
[2024-12-14] MEDS: NOVOLOG FLEXPEN-LOW RESISTANCE SC ×2 (10:51→16:54)
--- NOTE | 2024-12-14 10:59 | W.PN.HOSP.TC ---
Today's Communication/Plan
-
discharge planning
Assessment / Plan
Assessment / Plan
Assessment:
Acute hypoxic respiratory insufficiency -resolved
- wean O2 as able
Acute COVID-19 infection
- admitted last week discharged with oral steroids (completed 3 days of Remdesivir)
- now has completed 10 days steroids
- CXR repeat with improved GGO
- now off isolation - reviewed with infection prevention
- procal elevated; Switch antibiotics to cefdinir and Doxy; last day 12/14
Paroxysmal atrial fibrillation
- continue amiodarone
- continue Coreg
- continue Eliquis
Chronic lower extremity lymphedema
acute on chronic HFpEF
- Cardiology following
- on farxiga
- started back on IV lasix 80mg/bid yesterday ,weight down to 186kg and cr stable
Chronic toe wounds
Morbid Obesity
-limits diagnostic and treatment modalities
-ordering food from delivery apps - recommended against it - states 'ordering healthy options only'
-discussed weight loss and need for f/u with bariatric surgeon.
Chronic hypercarbia/hypoxemic respiratory failure secondary to obesity
Type 2 diabetes
- hold metformin
- Insulin sliding scale
- A1c is 6.0%
Constipation
Anxiety
- continue clonazepam
Chronic anemia
- hemoglobin stable
1.5 cm slightly high attenuation lesion in the inferior right frontal region, cannot exclude extra-axial.
- patient could not fit in MRI (body weight ok, but lateral body dimension would not support MRI
- CT head (with IV contrast): Homogeneously enhancing round mass in the anterior and inferior aspect of the right frontal lobe region, extra-axial, which very likely represents a meningioma.
- repeat outpatient surveillance imaging with PCP or Neurology outpatient
Morbidly obese secondary to excess calories
DVT ppx: Eliquis
Code: Full
Anticipated Discharge: Today
Subjective/Interval History
-
Date of Service: December 14, 2024
Sitting comfortably in chair
denying chest pain
Objective Data
-
Labs:
Laboratory Results
12/14/24
06:33
WBC 7.6
Hgb 9.6 L
Hct 29.8 L
Plt Count 197
Sodium 139
Potassium 3.2 L
Chloride 93 L
Carbon Dioxide 34 H
BUN 29 H
Creatinine 1.3
Glucose 145 H
Calcium 8.6
Vital Signs:
Vital Signs
Temp Pulse Resp BP Pulse Ox
98.5 F 67 18 134/81 94
12/14/24 07:45 12/14/24 09:35 12/14/24 07:45 12/14/24 09:35 12/14/24 07:45
I&O
12/13/24 12/14/24 12/15/24
06:59 06:59 07:59
Intake Total 1380 / 1380 1440 / 1440
Balance 1380 / 1380 1440 / 1440
Review of Systems
-
Respiratory: Reports No Symptoms
Cardiac: Reports No Symptoms
Abdomen/GI: Reports No Symptoms
Physical Exam
-
General: No Apparent Distress and Morbidly Obese
HEENT: Negative Oxygen
Neuro: Awake, Alert and AO x 3
Psych: Calm
--- NOTE | 2024-12-14 11:14 | W.PN.CD ---
Today's Communication / Plan
-
-Patient has diuresed 12 kg (over 25 pounds) since admission.
-Will transition to Lasix 80 mg PO BID, which should be his new home dose.
-Also discharge on KCl 40 mEq PO once daily to avoid hypokalemia; repleted today.
-Continue spironolactone 25 mg daily and Farxiga 10 mg daily.
-Can be discharged from a cardiac standpoint with outpatient follow-up with his primary Meat Service Team Member (Dr. Keith at [facility]
Impression / Plan
-
54-year-old man with recent COVID infection, HFpEF, JENNI, morbid obesity, paroxysmal atrial fibrillation on amiodarone and Eliquis who presents with weakness, found to be hypoxic in the ER. Cardiology is consulted due to concern for CHF exacerbation.
Meat Service Team Member: Dr. Keith at [facility]
Acute hypoxic respiratory failure/acute on chronic HFpEF:
-Likely multifactorial in the setting of recent COVID infection, pna, JENNI, and obesity hypoventilation. There may be a component of CHF but he is a very difficult volume exam. Tiny right pleural effusion on chest CT.
-Patient has diuresed 12 kg (over 25 pounds) since admission.
-Will transition to Lasix 80 mg PO BID, which should be his new home dose.
-Also discharge on KCl 40 mEq PO once daily to avoid hypokalemia; repleted today.
-Continue spironolactone 25 mg daily and Farxiga 10 mg daily.
-TTE 12/09/34: grossly normal LVEF, TDS even with contrast
Paroxysmal atrial fibrillation
-Remains in sinus rhythm.
-Continue home amiodarone 100 mg daily and Eliquis 5 mg twice daily.
Morbid obesity affecting all aspects of care
-Aggressive weight loss recommended.
Subjective: No major events overnight; no cardiac complaints this a.m.
Disposition: Can be discharged from a cardiac standpoint with outpatient follow-up with his primary Meat Service Team Member (Dr. Ketih at [facility]).
Physical Exam
Vital Signs/Labs
Vital Signs
Temp Pulse Resp BP Pulse Ox
98.5 F 67 18 134/81 94
12/14/24 07:45 12/14/24 09:35 12/14/24 07:45 12/14/24 09:35 12/14/24 07:45
12/13/24 12/14/24 12/15/24
06:59 06:59 07:59
Actual Weight 190.237 kg 186.653 kg
12/14/24 06:33
12/14/24 06:33
Magnesium 2.0 mg/dl (1.6-2.3) 12/07/24 08:44
12/06/24
16:17
[id number] Pept 1020
Physical Exam
Constitutional: No acute distress and Comfortable
EENT: Anicteric
Cardiovascular: Rhythm & rate is regular, Systolic murmur absent, Pedal edema present (2+) and S1S2 is normal
Respiratory: Respiratory effort normal and Lungs clear to auscul.
GI: Soft
Neuro/Psych: AO x 3
Other: Skin (Warm, dry)
Data Reviewed
-
Date of Service: December 14, 2024
EKG: Tracing Personally Visualized and interpreted (Telemetry: Sinus rhythm)
Echo: Report Reviewed by me (Grossly normal LVEF)
Medical Tests (PFT, Pathology etc): Discussed with Patient
Labs: Labs Reviewed by me
[2024-12-14 11:37] VITALS: BP 145/85
[2024-12-14 15:26] VITALS: BP 114/75
[2024-12-14] MEDS: LASIX 80 MG PO (15:35)
[2024-12-14 16:29] LABS: Glucose - Point of Care 128 mg/dl (70-99)
[2024-12-14] MEDS: REMERON 15 MG PO (21:16)
[2024-12-14] MEDS: ABILIFY 5 MG PO (21:16)
[2024-12-14] MEDS: PRAVACHOL 40 MG PO (21:16)
[2024-12-14 21:22] LABS: Glucose - Point of Care 135 mg/dl (70-99)
[2024-12-14 22:12] VITALS: PULSE 80
[2024-12-14 23:01] VITALS: BP 116/71
[2024-12-15 06:00] VITALS: BMI 60.5
[2024-12-15 07:43] LABS: Glucose - Point of Care 149 mg/dl (70-99)
[2024-12-15 07:48] VITALS: BP 118/65
[2024-12-15] MEDS: VIBRAMYCIN 100 MG PO ×2 (07:51→21:22)
[2024-12-15] MEDS: PROTONIX 40 MG PO ×2 (07:51→21:22)
[2024-12-15] MEDS: FARXIGA 10 MG PO (07:51)
[2024-12-15] MEDS: ALDACTONE 25 MG PO (07:52)
[2024-12-15] MEDS: ELIQUIS 5 MG PO ×2 (07:52→21:22)
[2024-12-15] MEDS: LASIX 80 MG PO (07:52)
[2024-12-15] MEDS: PACERONE 100 MG PO (07:53)
[2024-12-15] MEDS: KLONOPIN 1 MG PO ×2 (07:53→21:22)
[2024-12-15] MEDS: LEXAPRO 10 MG PO (07:53)
[2024-12-15] MEDS: KCL 40 MEQ PO (07:53)
[2024-12-15] MEDS: NOVOLOG FLEXPEN-LOW RESISTANCE SC (07:54)
[2024-12-15] MEDS: TRIAMCINOLONE ACETONIDE 0.1% CREAM 1 APPLIC TOPICAL ×2 (07:58→21:23)
[2024-12-15 08:14] LABS: Blood Urea Nitrogen 27 mg/dl (9-20); Calcium 9.1 mg/dl (8.4-10.2); Chloride 91 mmol/L (98-107); Estimated Creatinine Clearance 92 ml/min; Glucose 154 mg/dl (70-99); Potassium 3.7 mmol/L (3.5-5.1); Sodium 138 mmol/L (135-145); eGFR 54.64
[2024-12-15 08:26] LABS: Carbon Dioxide 38 mmol/L (22-30)
[2024-12-15] MEDS: DESENEX/MITRAZOL/ZEASORB 1 APPLIC TOPICAL ×2 (08:27→21:23)
--- NOTE | 2024-12-15 10:30 | CM ---
Cynthia Bauer left message stating bed available at [facility] on Monday
Will need to obtain auth
[facility] NPI #:[id number]
Dr. Ino Braga NPI #: [id number]
Report #: [phone] Fax #: [phone]
PLAN: [facility], will need insurance auth
Report #: [phone] Fax #: [phone]
--- NOTE | 2024-12-15 11:56 | W.PN.HOSP.TC ---
Today's Communication/Plan
-
hold evening lasix dose
f/u renal function
discharge in AM tomorrow
Assessment / Plan
Assessment / Plan
Acute hypoxic respiratory insufficiency -resolved
- wean O2 as able
Acute COVID-19 infection
- admitted last week discharged with oral steroids (completed 3 days of Remdesivir)
- now has completed 10 days steroids
- CXR repeat with improved GGO
- now off isolation - reviewed with infection prevention
- procal elevated; Switch antibiotics to cefdinir and Doxy; last day 12/14
Paroxysmal atrial fibrillation
- continue amiodarone
- continue Coreg
- continue Eliquis
JEANINE
- renal function down to 1.5 today
- hold evning dose of lasix
Chronic lower extremity lymphedema
acute on chronic HFpEF
- Cardiology following
- on farxiga
- weight down. hold lasix today.
Chronic toe wounds
Morbid Obesity
-limits diagnostic and treatment modalities
-ordering food from delivery apps - recommended against it - states 'ordering healthy options only'
-discussed weight loss and need for f/u with bariatric surgeon.
Chronic hypercarbia/hypoxemic respiratory failure secondary to obesity
Type 2 diabetes
- hold metformin
- Insulin sliding scale
- A1c is 6.0%
Constipation
Anxiety
- continue clonazepam
Chronic anemia
- hemoglobin stable
1.5 cm slightly high attenuation lesion in the inferior right frontal region, cannot exclude extra-axial.
- patient could not fit in MRI (body weight ok, but lateral body dimension would not support MRI
- CT head (with IV contrast): Homogeneously enhancing round mass in the anterior and inferior aspect of the right frontal lobe region, extra-axial, which very likely represents a meningioma.
- repeat outpatient surveillance imaging with PCP or Neurology outpatient
Morbidly obese secondary to excess calories
DVT ppx: Eliquis
Code: Full
Anticipated Discharge: Within 24 hours
Subjective/Interval History
-
Date of Service: December 15, 2024
no issues overnight
Objective Data
-
Labs:
Laboratory Results
12/15/24
07:28
Sodium 138
Potassium 3.7
Chloride 91 L
Carbon Dioxide 38 H
BUN 27 H
Creatinine 1.5 H
Glucose 154 H
Calcium 9.1
Vital Signs:
Vital Signs
Temp Pulse Resp BP Pulse Ox
98.4 F 75 17 116/71 97
12/15/24 07:48 12/15/24 07:52 12/15/24 07:48 12/15/24 07:52 12/15/24 07:48
I&O
12/14/24 12/15/24 12/16/24
05:59 06:59 06:59
Intake Total
Output Total
Balance
Review of Systems
-
Respiratory: Reports No Symptoms
Cardiac: Reports No Symptoms
Abdomen/GI: Reports No Symptoms
Physical Exam
-
General: No Apparent Distress and Morbidly Obese
HEENT: Negative Oxygen
GI: Soft, Nontender, Nondistended and Normal Bowel Sounds
Neuro: Awake, Alert and AO x 3
Psych: Calm
[2024-12-15 12:10] LABS: Glucose - Point of Care 160 mg/dl (70-99)
[2024-12-15] MEDS: NOVOLOG FLEXPEN-LOW RESISTANCE 1 UNITS SC (12:53)
[2024-12-15 13:58] VITALS: BP 136/74; PULSE 78; O2SAT 94
[2024-12-15 14:36] VITALS: BP 136/74; PULSE 82; O2SAT 98
[2024-12-15 15:06] VITALS: BP 117/71
[2024-12-15 17:11] LABS: Glucose - Point of Care 226 mg/dl (70-99)
[2024-12-15] MEDS: NOVOLOG FLEXPEN-LOW RESISTANCE 2 UNITS SC (18:07)
[2024-12-15] MEDS: PRAVACHOL 40 MG PO (21:22)
[2024-12-15] MEDS: REMERON 15 MG PO (21:22)
[2024-12-15] MEDS: ABILIFY 5 MG PO (21:22)
[2024-12-15 22:21] VITALS: PULSE 85
[2024-12-15 23:15] VITALS: BP 120/74
[2024-12-16 02:04] LABS: Glucose - Point of Care 129 mg/dl (70-99)
[2024-12-16 06:45] LABS: Blood Urea Nitrogen 27 mg/dl (9-20); Calcium 9.2 mg/dl (8.4-10.2); Chloride 95 mmol/L (98-107); Estimated Creatinine Clearance 92 ml/min; Glucose 126 mg/dl (70-99); Potassium 3.9 mmol/L (3.5-5.1); Sodium 138 mmol/L (135-145); eGFR 54.64
[2024-12-16 07:07] LABS: Carbon Dioxide 33 mmol/L (22-30)
[2024-12-16 07:20] VITALS: BP 125/74
[2024-12-16 07:36] LABS: Glucose - Point of Care 146 mg/dl (70-99)
[2024-12-16] MEDS: NOVOLOG FLEXPEN-LOW RESISTANCE SC ×2 (08:47→12:30)
[2024-12-16] MEDS: PROTONIX 40 MG PO (10:04)
[2024-12-16] MEDS: VIBRAMYCIN 100 MG PO (10:04)
[2024-12-16] MEDS: PACERONE 100 MG PO (10:04)
[2024-12-16] MEDS: FARXIGA 10 MG PO (10:04)
[2024-12-16] MEDS: ELIQUIS 5 MG PO (10:05)
[2024-12-16] MEDS: KLONOPIN 1 MG PO (10:05)
[2024-12-16] MEDS: KCL 40 MEQ PO (10:05)
[2024-12-16] MEDS: LEXAPRO 10 MG PO (10:05)
[2024-12-16] MEDS: ALDACTONE 25 MG PO (10:05)
[2024-12-16] MEDS: TRIAMCINOLONE ACETONIDE 0.1% CREAM TOPICAL (10:06)
[2024-12-16] MEDS: DESENEX/MITRAZOL/ZEASORB 1 APPLIC TOPICAL (10:11)
--- NOTE | 2024-12-16 10:16 | CM ---
Called [employer] and spoke with Elzbieta
Insurance approval #: [id number] for [facility]
Start 12/16/24---NRD 12/20/24
Call updates to [phone]
Called & LM of auth approval information with Cynthia Logan liaison [phone]
tt hospitalist
PLAN: [facility]
Report #: [phone]
Fax #: [phone]
[2024-12-16 11:30] LABS: Glucose - Point of Care 145 mg/dl (70-99)
--- NOTE | 2024-12-16 12:39 | W.DCSUMMARY ---
Discharge Summary
Discharge Data
Date of Admission: 12/08/24
Date of Discharge: 12/16/24
-
Pending Results: No
Hospital Course
54-year-old with past medical history of congestive heart failure, JENNI on CPAP, morbid obesity, diabetes, atrial fibrillation on amiodarone and anticoagulated with Eliquis
Presented for fall and found to have hypoxic respiratory failure requiring supplemental oxygen. Recent diagnosis of COVID and treated with remdesivir. CT of the chest was completed that was negative for PE. Hypoxic respiratory failure was
believed to be related to ongoing COVID infection and was continued on dexamethasone to complete 10-day course. A procalcitonin was ordered which was high leading to start antibiotics for concern of superimposed bacterial pneumonia.
Additionally should be noted was found to have a high proBNP and troponin of 0.012. Cardiology evaluated reviewed thoracic echocardiogram from September 2024 with a EF of 55 to 60%. Started IV diuretics. Diuresed 12 kg over 25 pounds since
admission. Transition from IV diuretics to Lasix 80 mg twice a day and potassium chloride 40 mg once daily to avoid hypokalemia. Continue Aldactone and Farxiga.
Will need outpatient follow-up with PCP cardiology and pulmonary medicine.
CT Brain
IMPRESSION:
Evaluation limited due to some motion artifact.
No findings to suggest recent intracranial infarction or hemorrhage.
Prior paranasal sinus surgery.
Suggestion of approximate 1.5 cm slightly high attenuation lesion in the inferior right frontal region, cannot exclude extra-axial. Most likely differential diagnostic possibility would be a MENINGIOMA.. Recommend MRI Brain without and with
contrast for more complete evaluation.
C-Spine CT
IMPRESSION:
Slight reversal of the normal cervical lordotic curvature.
Degenerative changes.
No findings to suggest recent cervical spine fracture.
Chest CT
IMPRESSION:
No evidence of central pulmonary embolism. Evaluation of more peripheral pulmonary arterial branches limited. Please see above comments.
Cardiomegaly.
Elevation/eventration of the right hemidiaphragm.
CXR
FINDINGS and IMPRESSION:
Evaluation is markedly limited with extremely low lung volumes.
There is no finding to confirm pneumothorax. Small pleural effusions bilaterally cannot be excluded, especially on the left.
The heart is likely enlarged pulmonary vascularity is likely increased suggesting CHF versus acute pulmonary edema.
Suspected groundglass opacification bilaterally, differential diagnostic possibilities unchanged, possibly slightly improved.
Head CT
IMPRESSION: Homogeneously enhancing round mass in the anterior and inferior aspect of the right frontal lobe region, extra-axial, which very likely represents a meningioma.
Status post bifrontal craniotomy with adjacent encephalomalacia. There is also evidence for postsurgical changes involving the nasal cavity and the medial aspect of the right orbit.
On the day of discharge.
He was seen and examined. Sitting in bedside chair eating breakfast.
He had no new complaints nor acute overnight events.
Tolerating CPAP well overnight
NAD
Scleral Anicteric
MMM
No JVD
CTABL
RRR, S1/S2
Morbidly obese, soft, NT, ND, BS+
Warm, Dry, bilateral lower extremity chronic venous stasis change
AAOx3
Calm
More than 30 minutes spent in discharge including
Final examination of the patient
Summarizing hospital stay
Instructions for continuing care to all relevant caregivers
Preparation of discharge records, prescriptions, and referral forms
Total time spent (in minutes): 33mins
Discharge Plan
-
Patient Disposition: [facility]NF
Discharge Diagnosis/Procedures: Covid with superimposed bacterial pneumonia
Condition: Good
Diet: As tolerated
Activity: As tolerated
Activity Restrictions/Additional Instructions:
Presented for fall and found to have hypoxic respiratory failure requiring supplemental oxygen. Recent diagnosis of COVID and treated with remdesivir. CT of the chest was completed that was negative for PE. Hypoxic respiratory failure was
believed to be related to ongoing COVID infection and was continued on dexamethasone to complete 10-day course. A procalcitonin was ordered which was high leading to start antibiotics for concern of superimposed bacterial pneumonia.
Additionally should be noted was found to have a high proBNP and troponin of 0.012. Cardiology evaluated reviewed thoracic echocardiogram from September 2024 with a EF of 55 to 60%. Started IV diuretics. Diuresed 12 kg over 25 pounds since
admission. Transition from IV diuretics to Lasix 80 mg twice a day and potassium chloride 40 mg once daily to avoid hypokalemia. Continue Aldactone and Farxiga.
Will need outpatient follow-up with PCP cardiology and pulmonary medicine.
CTBrain
IMPRESSION:
Evaluation limited due to some motion artifact.
No findings to suggest recent intracranial infarction or hemorrhage.
Prior paranasal sinus surgery.
Suggestion of approximate 1.5 cm slightly high attenuation lesion in the inferior right frontal region, cannot exclude extra-axial. Most likely differential diagnostic possibility would be a MENINGIOMA.. Recommend MRI Brain without and with
contrast for more complete evaluation.
C-Spine CT
IMPRESSION:
Slight reversal of the normal cervical lordotic curvature.
Degenerative changes.
No findings to suggest recent cervical spine fracture.
Chest CT
IMPRESSION:
No evidence of central pulmonary embolism. Evaluation of more peripheral pulmonary arterial branches limited. Please see above comments.
Cardiomegaly.
Elevation/eventration of the right hemidiaphragm.
CXR
FINDINGS and IMPRESSION:
Evaluation is markedly limited with extremely low lung volumes.
There is no finding to confirm pneumothorax. Small pleural effusions bilaterally cannot be excluded, especially on the left.
The heart is likely enlarged pulmonary vascularity is likely increased suggesting CHF versus acute pulmonary edema.
Suspected groundglass opacification bilaterally, differential diagnostic possibilities unchanged, possibly slightly improved.
Head CT
IMPRESSION: Homogeneously enhancing round mass in the anterior and inferior aspect of the right frontal lobe region, extra-axial, which very likely represents a meningioma.
Status post bifrontal craniotomy with adjacent encephalomalacia. There is also evidence for postsurgical changes involving the nasal cavity and the medial aspect of the right orbit.
Referrals:
UNKNOWN - PT DOES,NOT KNOW [Family Provider] -
Prescriptions:
New
ipratropium-albuterol 0.5 mg-3 mg(2.5 mg base)/3 mL Solution For Nebulization
3 ml inhalation R Q4HPRN PRN (Reason: shortness of breath) Qty: 90 0RF
spironolactone 25 mg Tablet
25 mg PO DAILY 30 Days Qty: 30 0RF
bisacodyl 10 mg Suppository
10 mg SC [id number] PRN (Reason: constipation) 15 Days Qty: 15 0RF
dapagliflozin propanediol 10 mg Tablet
10 mg PO DAILY 30 Days Qty: 30 0RF
polyethylene glycol 3350 17 gram Powder In Packet
17 g PO DAILYPRN PRN (Reason: constipation) 30 Days Qty: 30 0RF
potassium chloride 20 mEq Tablet,Er Particles/Crystals
40 meq PO DAILY Qty: 30 0RF
furosemide 80 mg Tablet
80 mg PO BID@0800,1600 Qty: 60 0RF
Continued
omeprazole 40 MG capsule,delayed release(DR/EC)
40 mg PO BID
pravastatin 40 mg Tablet
40 mg PO HS
Eliquis 5 mg Tablet
5 mg PO BID
clonazepam 1 mg tablet
1 mg PO Q12H
triamcinolone acetonide 0.1 % cream
1 applic TOPICAL BID
mirtazapine 15 mg tablet
15 mg PO HS
escitalopram oxalate 10 mg tablet
10 mg PO DAILY
aripiprazole 5 mg tablet
5 mg PO HS
amiodarone 100 mg tablet
100 mg PO DAILY
metformin 500 mg tablet
500 mg PO BID@0800,1700
miconazole nitrate [Miconazorb AF] 2 % powder
1 applic topical BID
Discontinued
furosemide 40 mg Tablet
40 mg PO DAILY
dexamethasone 2 mg tablet
6 mg PO DAILY Qty: 18 0RF
Discharge Orders:
Discharge Patient (As Directed); Ordered 12/16/24
Ordered By: Javier Rubio
Discharge Date and Time
Print Language: CITIZEN OF [place]
--- NOTE | 2024-12-16 12:40 | VATNOTE ---
Called by pt's primary RN to D/C pt's midline b/c he is discharged. ML D/C'd w/ no issues, TCL retrieved was 19cm. Pressure dressing applied per protocol .
[2024-12-16 12:43] VITALS: BP 140/88
== END 2024-12-16 13:43 | DRG 177 ==
LOC: 2 NORTH 08:29
PROVIDERS: Hospitalist; Internal Medicine; ADMITTING PHYSICIAN Internal Medicine; ATTENDING PHYSICIAN Hospitalist; CONSULT PHYSICIAN Internal Medicine Critical Care Medicine; CONSULT PHYSICIAN Student in an Organized Health Care Education/Training Program; EMERGENCY PHYSICIAN Emergency Medicine
PROC: 5A09357 Assistance with Respiratory Ventilation, Less than 24 Consecutive Hours, Continuous Positive Airway Pressure (ICD-10-PCS; 2024-12-08)
DX: U07.1 COVID-19 (principal); I50.33 Acute on chronic diastolic (congestive) heart failure; J15.9 Unspecified bacterial pneumonia; J96.21 Acute and chronic respiratory failure with hypoxia; E66.2 Morbid (severe) obesity with alveolar hypoventilation; Z68.44 Body mass index [BMI] 60.0-69.9, adult; J96.12 Chronic respiratory failure with hypercapnia; E87.3 Alkalosis; I11.0 Hypertensive heart disease with heart failure; I48.0 Paroxysmal atrial fibrillation; E11.9 Type 2 diabetes mellitus without complications; I89.0 Lymphedema, not elsewhere classified; D64.9 Anemia, unspecified; E78.00 Pure hypercholesterolemia, unspecified; F31.9 Bipolar disorder, unspecified; I87.8 Other specified disorders of veins; R62.7 Adult failure to thrive; Z79.01 Long term (current) use of anticoagulants; Z79.84 Long term (current) use of oral hypoglycemic drugs; Z79.899 Other long term (current) drug therapy
CPT/HCPCS: 93308; 70450; 70470; 71045; 71275; 72125; 80048; 82805; 82962; 83735; 83880; 84145; 84484; 85025; 85027; 93005; 93321; 93325; 94660; 96374; 97110; 97116; 97163; 97167; 97530; 97535; 99285; Q9950; Q9967